=== PATIENT | female | born 1980 | race Caucasian/White ===

== ENCOUNTER → 2017-11-13 18:07 | Outpatient (CLI) | payer BC, SELFPAY ==
[2017-11-13 21:13] LABS: Chlamydia Trachomatis by PCR Negative (Negative); Neisserai gonorrhoeae by PCR Negative (Negative); Probe Check PASS; Sample Adequacy Control PASS; Specimen Processing Control PASS
[2017-11-20 20:07] LABS: HPV Genotype 16, Aptima Negative (Negative)
[2017-11-21 09:16] LABS: HPV APTIMA, High Risk Positive (Negative); HPV Genotype 18,45 Aptima Negative (Negative)
== END ==
PROVIDERS: Visit Provider Obstetrics & Gynecology
DX: O09.521 Supervision of elderly multigravida, first trimester (principal); Z12.4 Encounter for screening for malignant neoplasm of cervix
CPT/HCPCS: 87086; 87088; 87491; 87591; 88175; G0145

== ENCOUNTER → 2017-12-03 11:37 | Outpatient (CLI) | payer BC, SELFPAY ==
[2017-12-03 12:51] LABS: Absolute Lymphocyte Count 2.04 X10^3/ul (0.83-4.51); Absolute Neutrophil Count 3.3 X10^3/uL (2.0-7.7); Basophil# 0.02 X10^3/uL; Basophil% 0.3 % (0-1); Eosinophil# 0.09 X10^3/uL; Eosinophils% 1.5 % (0-5); Hematocrit 38.9 % (37-47); Hemoglobin 13.4 g/dl (12.0-15.0); Lymphocyte # 2.04 X10^3/ul (4.0); Lymphocyte % 34.4 % (19-41); Mean Corp Hgb Conc 34.4 g/gl (32-36); Mean Corpuscular Hgb 29.3 pg (27.0-32.0); Mean Corpuscular Volume 85.1 fL (81-99); Mean Platelet Vol. 9.1 fl (6.2-12.0); Monocyte# 0.48 X10^3/uL; Monocyte% 8.1 % (0-10); Neutrophil # 3.29 X10^3/uL (2.7-7.7); Neutrophil % 55.5 % (47-70); Platelet Count 198 K/mm3 (150-450); RBC Distribution Width CV 13.4 % (11.6-14.6); RBC Distribution Width SD 41.4 fl (35.1-43.9); Red Blood Count 4.57 M/mm3 (4.2-5.4); White Blood Count 5.9 K/mm3 (4.4-11.0)
[2017-12-03 12:55] LABS: POSITIVE COUNT NO; POSITIVE DIFFERENTIAL NO; POSITIVE MORPHOLOGY NO
[2017-12-03 13:56] LABS: HIV - WCH Non-Reactive (Nonreactive); Rubella IgG 202.1 IU/mL
[2017-12-04 11:12] LABS: HEPATITIS B SURFACE AG Negative (Negative)
[2017-12-05 05:06] LABS: Rapid Plasmin Reagin (RPR) NONREACTIVE (NONREACTIVE)
== END ==
LOC: POLAB3 11:38
PROVIDERS: Visit Provider Obstetrics & Gynecology
DX: O09.521 Supervision of elderly multigravida, first trimester (principal); Z3A.00 Weeks of gestation of pregnancy not specified
CPT/HCPCS: 85025; 86592; 86703; 86762; 86850; 86900; 87340

== ENCOUNTER → 2017-12-17 16:04 | Outpatient (CLI) | payer BC, SELFPAY | PROVIDERS: Visit Provider Obstetrics & Gynecology | DX: Z00.00 Encounter for general adult medical examination without abnormal findings (principal) | CPT/HCPCS: 36415 ==

== ENCOUNTER → 2018-02-06 12:12 | Outpatient (CLI) | payer BC, SELFPAY ==
--- NOTE | 2018-02-06 12:22 | US_ITS ---
STUDY: SECOND AND THIRD TRIMESTER OBSTETRICAL ULTRASOUND REASON FOR EXAM: Female, 37 years old. Routine survey. LMP: Unknown. TECHNIQUE: Transabdominal PRIOR ULTRASOUND: None. FINDINGS: There is a single intrauterine fetus. The fetus is in a breech presentation. There is demonstrated cardiac activity with a heart rate of 147 bpm. There is a normal amniotic fluid volume. The largest amniotic fluid pocket measures 4.6 cm. The amniotic fluid index (ALEX) is 3.3 cm. The placenta is anterior in location and is not low lying. There are Grade 0 placental changes. The cervix measures 4.1 cm in length. The adnexal regions are not visualized. BIOMETRY: BPD: 4.7 cm: 20 weeks, 1 days HC: 17.3 cm: 19 weeks, 6 days AC: 15.2 cm: 20 weeks, 3 days FL: 3.1 cm: 19 weeks, 6 days age by current US: 19 weeks, 1 days. MISBAH by current US: June 25, 2018. Estimated weight: 330 grams, +/- 48 grams, 33 %. ANATOMY: Cranium: Normal lateral ventricles. Normal choroid plexus. Normal cerebellum. Normal cisterna magna. Normal face, nose and lips. Chest: Normal 4-chamber heart. Abdomen/Pelvis: Normal diaphragm. Normal stomach. Normal abdominal wall. Normal cord insertion. Normal 3 vessel cord. Normal kidneys. Normal bladder. Spine: Normal cervical spine. Normal thoracic spine. Normal lumbar spine. Normal sacrum. Extremities: Normal bilateral upper extremities. Normal bilateral lower extremities. US/OB Anatomy Scan IMPRESSION: Single intrauterine gestation 19 weeks 1 day with estimated due date June 25, 2018. No anomalies on routine anatomic survey. Electronically Signed: Florentin Salomon MD at 15:48 EDT , Service support ,
== END ==
LOC: OPUS 12:13
PROVIDERS: Visit Provider Obstetrics & Gynecology
DX: O09.521 Supervision of elderly multigravida, first trimester (principal); Z3A.00 Weeks of gestation of pregnancy not specified
CPT/HCPCS: 76805

== ENCOUNTER → 2018-04-03 12:33 | Outpatient (CLI) | payer BC, SELFPAY ==
[2018-04-03 13:25] LABS: Absolute Neutrophil Count 7.8 X10^3/uL (2.0-7.7); Basophil# 0.02 X10^3/uL; Basophil% 0.2 % (0-1); Eosinophil# 0.13 X10^3/uL; Eosinophils% 1.2 % (0-5); Hematocrit 35.5 % (37-47); Hemoglobin 12.2 g/dl (12.0-15.0); Lymphocyte % 17.7 % (19-41); Mean Corp Hgb Conc 34.4 g/gl (32-36); Mean Corpuscular Volume 87.2 fL (81-99); Mean Platelet Vol. 9.3 fl (6.2-12.0); Monocyte# 0.79 X10^3/uL; Monocyte% 7.4 % (0-10); Neutrophil # 7.83 X10^3/uL (2.7-7.7); Neutrophil % 72.9 % (47-70); Platelet Count 210 K/mm3 (150-450); RBC Distribution Width CV 13.7 % (11.6-14.6); RBC Distribution Width SD 43.3 fl (35.1-43.9); Red Blood Count 4.07 M/mm3 (4.2-5.4); White Blood Count 10.7 K/mm3 (4.4-11.0)
[2018-04-03 13:27] LABS: Differential Indicated SCAN CRITERIA MET; POSITIVE COUNT NO; POSITIVE DIFFERENTIAL NO; POSITIVE MORPHOLOGY YES
[2018-04-03 13:39] LABS: Glucose Challenge Gest 1H 50g 120 mg/dL (70-140)
[2018-04-03 14:02] LABS: Differential Comment S
== END ==
PROVIDERS: Referring Provider Obstetrics & Gynecology; Visit Provider Obstetrics & Gynecology
DX: O09.521 Supervision of elderly multigravida, first trimester (principal)
CPT/HCPCS: 36415; 82950; 85025; 86850; 86900

== ENCOUNTER → 2018-05-01 13:56 | Outpatient (CLI) | payer BC, SELFPAY ==
--- NOTE | 2018-05-01 13:58 | US_ITS ---
STUDY: SECOND AND THIRD TRIMESTER OBSTETRICAL ULTRASOUND - LIMITED REASON FOR EXAM: Female, 37 years old. Examination of well-being LMP: PRIOR ULTRASOUND: None. TECHNIQUE: Transabdominal probe was used TECHNICAL QUALITY: February 06, 2018 FINDINGS: There is a single intrauterine fetus. The fetus is in a cephalic presentation. There is demonstrated cardiac activity with a heart rate of 125 bpm. There is a normal amniotic fluid volume. The largest amniotic fluid pocket measures 5.9 x 2.8 cm. The amniotic fluid index (ALEX) is 14 cm. The placenta is anterior and low-lying . There are Grade 0 placental changes. The cervix measures 4 cm in length. BIOMETRY: BPD: 8.2 cm: 33 weeks, 0 days HC: 30.2 cm: . 33 weeks, 4 days AC: 29.3 cm: 33 weeks, 3 days FL: 6.3 cm: 32 weeks, 5 days Age by LMP: 32 weeks, 2 days. MISBAH by LMP: 06/17/2018. age by prior US: 19 weeks, 1 days. MISBAH by prior US: 06/25/2018. age by current US: 53 weeks, 2 days. MISBAH by current US: 06/17/2018. Estimated weight: 2124 grams, +/- 310 grams, 67 percentile. US/OB Limited With Biometrics IMPRESSION: There has been a normal growth of the fetus since the last examination of March 05, 2018. The fetus is currently in a cephalic presentation and longitudinal lie with composite measurements averaging out to be equivalent to 33 weeks 2 days +/- 5 days with an expected date of delivery of 06/17/2018. Using the LMP the expected date would be 06/17/2018. Estimated weight of 212 4 g +/- 310 g. This is in the 67th percentile Electronically Signed: Eddie Graham MD at 7:42 EDT Tel , Service support ,
== END ==
LOC: US 13:57
PROVIDERS: Referring Provider Obstetrics & Gynecology; Visit Provider Obstetrics & Gynecology
DX: Z34.90 Encounter for supervision of normal pregnancy, unspecified, unspecified trimester (principal); Z68.43 Body mass index [BMI] 50.0-59.9, adult
CPT/HCPCS: 76816

== ENCOUNTER → 2018-05-14 09:58 | Outpatient (CLI) | payer BC, SELFPAY ==
--- NOTE | 2018-05-14 10:00 | VDLE_ITS ---
Reason For Study: LEG SWELLING RIGHT LEFT CFV is compressible, spontaneous, phasic, GSV is normal. competent and demonstrates normal CFV is compressible, spontaneous, phasic, augmentation. competent, and demonstrates normal Procedure augmentation. Exam performed in department. FV is compressible, spontaneous, phasic, A preliminary report was called and/or faxed competent and demonstrates normal to Dr. Das. augmentation. POP V is compressible, spontaneous, phasic, competent and demonstrates normal augmentation. T/P Trunk is compressible. PTV is compressible. LT PerV is compressible. <> Interpretation Summary There is no evidence of left lower extremity deep vein thrombosis. Left greater saphenous vein appears patent and compressible segmentally. Normal flow patterns right common femoral vein. Ordering Physician: Radha Das Referring Physician: Radha Das Performed By: Aidee Leung RVT
== END ==
LOC: CVS 09:59
PROVIDERS: Referring Provider Obstetrics & Gynecology; Visit Provider Obstetrics & Gynecology
DX: M79.89 Other specified soft tissue disorders (principal)
CPT/HCPCS: 93971

== ENCOUNTER → 2018-06-01 13:35 | Outpatient (CLI) | payer BC, SELFPAY ==
[2018-05-27 15:58] VITALS: BMI 50.0
== END ==
PROVIDERS: Referring Provider Nurse Practitioner Women's Health; Visit Provider Nurse Practitioner Women's Health
DX: Z34.90 Encounter for supervision of normal pregnancy, unspecified, unspecified trimester (principal)
CPT/HCPCS: 87081

== ENCOUNTER → 2018-06-08 13:15 | Outpatient (CLI) | payer BC, SELFPAY ==
[2018-06-05 10:03] VITALS: BMI 50.0
--- NOTE | 2018-06-08 13:19 | US_ITS ---
STUDY: SECOND AND THIRD TRIMESTER OBSTETRICAL ULTRASOUND - LIMITED REASON FOR EXAM: Female, 37 years old. Evaluate for growth LMP: Unknown. PRIOR ULTRASOUND: 05/01/2018 TECHNIQUE: Transabdominal TECHNICAL QUALITY: Adequate. FINDINGS: There is a single intrauterine fetus. The fetus is in a cephalic presentation. There is demonstrated cardiac activity with a heart rate of 153 bpm. There is a normal amniotic fluid volume. The largest amniotic fluid pocket measures 5.9 x 3.9 cm. The amniotic fluid index (ALEX) is 14.6 cm. The placenta is anterior in location and is not low lying. There are Grade 2 placental changes. The cervix measures 4.4 cm in length. BIOMETRY: BPD: 9.6 cm: 39 weeks, 0 days HC: 33.9 cm: 39 weeks, 0 days AC: 35.0 cm: 39 weeks, 0 days FL: 7.5 cm: 38 weeks, 3 days Age by LMP: 37 weeks, 5 days. MISBAH by LMP: 06/24/2019. age by prior US: 38 weeks, 5 days. MISBAH by prior US: 06/17/2018. age by current US: 38 weeks, 6 days. MISABH by current US: 06/16/2018. Estimated weight: 3595 grams, +/- 525 grams, 85 percentile. US/OB Limited With Biometrics IMPRESSION: Single viable intrauterine of approximately 38 weeks 6 days gestational age by current ultrasonographic measurement. The fetus is in cephalic presentation. A heart rate of 153 bpm is noted. The ALEX is within normal limits. Electronically Signed: Angel Gilbert MD at 22:57 EST , Service support ,
--- OUTSIDE RECORDS SUMMARY | 2018-08-01 21:18 | XMS RPT_ITS ---
:1980 Author Organization OHIP Support Name Relationship Address Phone [facility] Unavailable [address] + [place] [address] V[place], FOR[place] Unavailable [address] + [address] [facility] Unavailable [address] + [place] [address] [place], FORREST Unavailable [address] + [address] [facility] Unavailable [address] + [place] [address] [place], FORREST Unavailable [address] + [address] [facility] Unavailable [address] + [place] [id number] VILL[place], FORREST Unavailable [address] + [address] [facility] Unavailable [address] + [place] [address] VILL[place], FORREST Unavailable [address] + [address] [facility] Unavailable [address] + [place] [id number] VILL[place], FORREST Unavailable [address] + [address] [facility] Unavailable [address] + [place] [id number] VILL[place], FORREST Unavailable [address] + [address] [facility] Unavailable [address] + [place] [id number] VILL[place], FORREST Unavailable [address] + [address] [facility] Unavailable [address] + [facility], [facility] VILLAR, FORREST Unavailable [address] + [facility] [place], [address] [facility] Unavailable [address] + [facility] [place], [place] [address] VILL[place], FORREST Unavailable [address] + [facility], [address] [facility] Unavailable [address] + [place] [place], [place] [address] [place]ILL[place], FORREST Unavailable [address] + [facility], [address] [facility] Unavailable [address] + [facility] [place], [place] [address] V[place], FOR[place] Unavailable [address] + [facility], [address] [facility] Unavailable [address] + [place] [place], [place] [address] [place], FOR[place] Unavailable [address] + [facility], [address] [facility] Unavailable [address] + [place] [place], [place] [address] V[place], FOR[place] Unavailable [address] + [facility], [address] [facility] Unavailable [address] + [place], [place] [address] [place], FOR[place] Unavailable [address] + [facility], [address] [facility] Unavailable [address] + [place], [place] [address] [place], FORREST Unavailable [address] + [facility], [address] [facility] Unavailable [address] + [place], [place] [address] [place], FOR[place] Unavailable [address] + [place] [place] [place], [address] [facility] Unavailable [address] + [place], [place] [address] [place], FOR[place] Unavailable [address] + [place], [address] [facility] Unavailable [address] + [place], [facility] [place], FORREST Unavailable [address] + [facility], [address] [facility] Unavailable [address] + [place], [place] [address] [place], FOR[place] Unavailable [address] + [facility], [address] [facility] Unavailable [address] + [place], [place] [address] [place], FORREST Unavailable [address] + [facility], [address] [facility] Unavailable [address] + [place], [place] [address] [place], [place] Unavailable [address] + [facility] [place], [address] [facility] Unavailable [address] + [place], [place] [address] [place], [place] Unavailable [address] + [place], [address] [facility] Unavailable [address] + [place], [place] [address] [place], [place] Unavailable [address] + [place] [place] [place], [address] [facility] Unavailable [address] + [place], [place] [address] [place], [place] Unavailable [address] + [place], [address] [facility] Unavailable [address] + [place], [place] [address] [place], [place] Unavailable [address] + [facility] [place], [address] [facility] Unavailable [address] + [place], [place] [address] [place], [place] Unavailable [address] + [place], [address] [facility] Unavailable [address] + [place], [place] [address] [place], [place] Unavailable [address] + [place], [address] [facility] Unavailable [address] + [place] [id number] [place], FORREST Unavailable [address] + [address] [facility] Unavailable [address] + [place] [address] [place], FOR[place] Unavailable [address] + [address] [facility] Unavailable [address] + [place] [address] [place], [place] Unavailable [address] + [address] [facility] Unavailable [address] + [place] [address] [place], [place] Unavailable [address] + [address] [facility] Unavailable Unavailable + [address], [place] Unavailable [address] + [place] [address] Care Team Providers Name Role Phone Litzy Joyce Admitting Unavailable Litzy Joyce Attending Unavailable Guera Galvan Primary Care Unavailable Negroanthony, Radha Attending Unavailable Primay Care Physicia, No Referring Unavailable Marcanthony, Radha Admitting Unavailable Marcanthony, Radha Attending Unavailable Primay Care Physicia, No Primary Care Unavailable Marcanthony, Radha Referring Unavailable Marcanthony, Radha Admitting Unavailable Marcanthony, Radha Attending Unavailable Primay Care Physicia, No Primary Care Unavailable Marcanthony, Radha Consulting Unavailable Marcanthony, Radha Admitting Unavailable Marcanthony, Radha Attending Unavailable Marcanthony, Radha Referring Unavailable Primay Care Physicia, No Primary Care Unavailable Marcanthony, Radha Consulting Unavailable Marcanthony, Radha Admitting Unavailable DravosburgVeronica Attending Unavailable Marcanthony, Radha Referring Unavailable Primay Care Physicia, No Primary Care Unavailable Marcanthony, Radha Consulting Unavailable Marcanthony, Radha Admitting Unavailable Reddy, Veronica Attending Unavailable Marcanthony, Radha Referring Unavailable Primay Care Physicia, No Primary Care Unavailable Marcanthony, Radha Consulting Unavailable Marcanthony, Radha Attending Unavailable Primay Care Physicia, No Referring Unavailable Primay Care Physicia, No Primary Care Unavailable Marcanthony, Radha Attending Unavailable Marcanthony, Radha Referring Unavailable Reddy, Veronica Attending Unavailable Primay Care Physicia, No Referring Unavailable Primay Care Physicia, No Primary Care Unavailable Marcanthony, Radha Attending Unavailable [place], Veronica Attending Unavailable Primay Care Physicia, No Referring Unavailable Primay Care Physicia, No Primary Care Unavailable Marcanthony, Radha Attending Unavailable Marcanthony, Radha Referring Unavailable Primay Care Physicia, No Primary Care Unavailable Marcanthony, Radha Attending Unavailable Primay Care Physicia, No Referring Unavailable Marcanthony, Radha Attending Unavailable Primay Care Physicia, No Referring Unavailable Marcanthony, Radha Attending Unavailable Primay Care Physicia, No Referring Unavailable Primay Care Physicia, No Primary Care Unavailable Marcanthony, Radha Attending Unavailable Primay Care Physicia, No Primary Care Unavailable Marcanthony, Radha Referring Unavailable Marcanthony, Radha Attending Unavailable Primay Care Physicia, No Referring Unavailable Primay Care Physicia, No Primary Care Unavailable Marcanthony, Radha Attending Unavailable Primay Care Physicia, No Referring Unavailable Primay Care Physicia, No Primary Care Unavailable Marcanthony, Radha Attending Unavailable Primay Care Physicia, No Referring Unavailable Marcanthony, Radha Attending Unavailable Marcanthony, Radha Referring Unavailable Primay Care Physicia, No Primary Care Unavailable Marcanthony, Radha Attending Unavailable Primay Care Physicia, No Referring Unavailable Marcanthony, Radha Attending Unavailable Primay Care Physicia, No Referring Unavailable Marcanthony, Radha Attending Unavailable Primay Care Physicia, No Primary Care Unavailable Marcanthony, Radha Referring Unavailable [place], Veronica Attending Unavailable Primay Care Physicia, No Referring Unavailable Marcanthony, Radha Attending Unavailable Marcanthony, Radha Referring Unavailable Primay Care Physicia, No Primary Care Unavailable CebulSanket Attending Unavailable Marcanthony, Radha Referring Unavailable Primay Care Physicia, No Primary Care Unavailable Marcanthony, Radha Consulting Unavailable Reddy, Veronica Attending Unavailable Primay Care Physicia, No Referring Unavailable Reddy, Veronica Attending Unavailable Primay Care Physicia, No Referring Unavailable [place], Veronica Attending Unavailable Primay Care Physicia, No Referring Unavailable Reddy, Veronica Attending Unavailable Reddy, Veronica Referring Unavailable Primay Care Physicia, No Primary Care Unavailable Marcanthony, Radha Attending Unavailable Primay Care Physicia, No Referring Unavailable Marcanthony, Radha Attending Unavailable Marcanthony, Radha Referring Unavailable Primay Care Physicia, No Primary Care Unavailable Marcanthony, Radha Attending Unavailable Primay Care Physicia, No Referring Unavailable PROBLEMS PROBLEMS DATE TYPE CONDITION / CODE ATTENDING STATUS SOURCE 06/17/2018 Unknown O99.210 - Obesity Thiago, Active [employer] complicating [facility] , Hospital unspecified Repository trimester / O99.210(ICD-10) 06/12/2018 Unknown O09.521 - Marcanthony, Active [employer] Supervision of [facility] multigravida, Repository first trimester / O09.521(ICD-10) 06/12/2018 Unknown M06.09 - Marcanthony, Active [facility] Rheumatoid [facility] arthritis without Hospital rheumatoid factor, Repository multiple sites / M06.09(ICD-10) 06/12/2018 Unknown M79.7 - Marcanthony, Active [employer] Fibromyalgia / [facility] M79.7(ICD-10) Hospital Repository 06/12/2018 Unknown O09.893 - Marcanthony, Active [employer] Supervision of [facility] other high risk Hospital pregnancies, third Repository trimester / O09.893(ICD-10) 06/12/2018 Unknown Z68.43 - Body mass Marcanthony, Active [employer] index (BMI) [facility] 50-59.9, adult / Hospital Z68.43(ICD-10) Repository 06/12/2018 Unknown O09.523 - Marcanthony, Active [facility] Supervision of [facility] multigravida, Repository third trimester / O09.523(ICD-10) 06/12/2018 Unknown Z3A.38 - 38 weeks Marcanthony, Active [facility] gestation of [facility] / Hospital Z3A.38(ICD-10) Repository 06/08/2018 Unknown Z3A.37 - 37 weeks Marcanthony, Active [employer] gestation of [facility] / Hospital Z3A.37(ICD-10) Repository 06/01/2018 Unknown Z34.90 - Encounter Veronica Blakely Active [employer] for supervision of [facility] normal , Hospital unspecified, Repository unspecified trimester / Z34.90(ICD-10) 05/14/2018 Unknown M79.89 - Other Sanket Zuñiga Active [employer] specified soft Community tissue disorders / Hospital M79.89(ICD-10) Repository 05/07/2018 Unknown Z3A.33 - 33 weeks Reddy Veronica Active [employer] gestation of [facility] / Hospital Z3A.33(ICD-10) Repository 04/30/2018 Unknown Z3A.32 - 32 weeks Thiago, Active [facility] gestation of [facility] / Hospital Z3A.32(ICD-10) Repository 04/03/2018 Unknown Z67.91 - [facility] Active [employer] Unspecified blood [facility] type, Rh negative Hospital / Z67.91(ICD-10) Repository 04/03/2018 Unknown Z23 - Encounter Marcanthony, Active [employer] for immunization / [place] [address](ICD-10) Hospital Repository 04/03/2018 Unknown O09.899 - [facility] Active [employer] Supervision of [facility] other high risk Hospital pregnancies, Repository unspecified trimester / O09.899(ICD-10) 04/03/2018 Unknown Z3A.28 - [address] [facility], Active [employer] gestation of [facility] / Hospital Z3A.28(ICD-10) Repository 02/13/2018 Unknown O09.892 - Marcdayton, Active [employer] Supervision of [facility] high risk Hospital pregnancies, Repository second trimester / O09.892(ICD-10) 01/16/2018 Unknown Z3A.17 - [address] [facility], Active [place] gestation of [facility] / Hospital Z3A.17(ICD-10) Repository PROCEDURES PROCEDURES No Procedure Records FoundRESULTS RESULTS DISCHARGE INSTRUCTION Observed: 06/24/2018 Status: F Source: [place] 8:16 AM [facility] [place] [facility] Medical Records Department [address] [place] [address] Instructions for Home/Discharge Instructions 06/24/18 0815 MR#: [id number] Acct: [id number] Name: WAYNE VILLAR Rep #: [id number] : 1980 37 From: Veronica Blakely [employer] PCP: Care Physician, No Primary Status: ADM IN Additional Instructions: If you experience any of the following, contact your healthcare provider. * Bleeding that soaks a pad every hour for 2 hours * Fever 100.4 or higher * Unrelieved incision or abdominal pain * Swelling, redness, discharge or bleeding from your incision or episiotomy site * Your incision begins to separate * Problems urinating (including inability to urinate or burning while urinating). * Visual changes * Severe headache * Flu-like symptoms * Pain or redness in one of both of your breasts * Pain, warmth, tenderness or swelling in your legs, especially the calf area * Frequent nausea and vomiting * Symptoms of depression or anxiety If you experience any of the following, call 911 or go to the nearest Emergency Room. * Chest pain * Problems breathing * Seizure activity * Partial or complete paralysis of a body part, slurred speech, weakness or drooping of the face, or a sudden inability to walk or hold your balance Allergies/Adverse Reactions: Allergies No Known Allergies Allergy (Verified 06/21/18 21:47) Medications to take at Discharge vitamin,calcium,pcfnssrc-vyyq-bofhi acid tablet 1 tab PO QDAY 01/16/18 Ondansetron HCl [Zofran] 4 mg PO Q4H PRN 06/21/18 Primary Care Physician: Care Physician,No Primary [Primary Care Provider] - Test Results: Test results from this visit will be discussed in further detail at your follow-up appointment, if applicable. 06/24/18 0816 <Electronically signed by Veronica MARTINEZ> Date Veronica MARTINEZ CC: No Primary Care Physician OPERATIVE REPORT Observed: 06/22/2018 Status: F Source: [place] 11:31 AM [facility] [place] [facility] Medical Records Department [address] [place] [address] Operative Report 06/22/18 1129 MR#: [id number] Acct: [id number] Name: WAYNE VILLAR Rep #: [id number] : 1980 37 From: Radha Das MD PCP: Care Physician, No Primary Status: ADM IN Y Location: [id number] - Problem List (1) SROM (spontaneous rupture of membranes) Status: Acute (2) Obesity affecting Status: Acute Qualifiers: Comment: NST through delivery (3) Supervision of high risk elderly multigravida in third trimester Status: Acute Comment: PRR MISBAH 06/24/18 emaline girl Arben Menjivar Abner (4) Status: Acute Qualifiers: Comment: NIPT low risk. carrier and NTD screening declined. anatomy scan normal. (5) Cytology examination positive for high risk human papillomavirus (HPV) Status: Acute Comment: 11/2017 neg pap, positive HPV. Repeat 1 year (6) Rh negative status during Status: Acute Qualifiers: Comment: rhogam as needed and 28 weeks- given (7) Fibromyalgia Status: Chronic Comment: sees Dr Joyce (8) Rheumatoid arthritis Status: Chronic Qualifiers: Comment: see Dr Joyce Vaginal Delivery Maternal Presentation: Active Labor 37-year-old presents in active labor with rupture of membranes Amniotic Membrane Rupture Type: Spontaneous at home Amniotic Fluid Description: Clear Final MISBAH: 06/24/18 Gestational age: 39 Weeks and 5 Days Date of Procedure: 06/22/18 Pre-Operative Diagnosis: In active labor rupture of membranes Post-Operative Diagnosis: Same Surgery/ Procedure Performed: Spontaneous Vaginal Delivery Type of Anesthesia: Epidural Description of Procedure: Patient began pushing and delivered the head in the LB presentation. The head was delivered atraumatically . The anterior and posterior shoulders delivered without complication followed by the rest of the infant and the was placed on the maternal abdomen. Delayed cord clamping was employed for approximately 60 seconds. Cord was clamped and cut and gentle traction was applied to the cord and the placenta delivered spontaneously immediately following it was noted to be intact with three-vessel cord. The perineum and vagina were inspected and noted to have no laceration. EBL was 200 cc. Patient and infant tolerated delivery well. Presentation: LB Placental Delivery Description: Spontaneous Placenta Disposition: [facility] Cord Vessel Description: 3 Vessels Cord Entanglement: None Estimated Blood Loss: 200 A gender: Female Episiotomy Description: None Laceration: None Medications given after delivery: IV Pitocin Complications: None 06/22/18 1131 <Electronically signed by Radha Das MD> Date Radha Das MD CC: No Primary Care Physician; Radha Das MD Signed HISTORY AND PHYSICAL Observed: 06/21/2018 Status: F Source: [place] EXAM 9:49 PM [facility] [place] [facility] Medical Records Department [address] [place] [address] History and Physical 06/21/185 MR#: [id number] Acct: [id number] Name: WAYNE VILLAR Rep #: [id number] : 1980 37 From: Radha Das MD PCP: Care Physician, No Primary Status: ADM IN Y Location: [id number] - Problem List (1) SROM (spontaneous rupture of membranes) Status: Acute (2) Obesity affecting Status: Acute Qualifiers: Comment: NST through delivery (3) Supervision of high risk elderly multigravida in third trimester Status: Acute Comment: PRR MISBAH 06/24/18 emaline girl PC Arben Crawford Abner (4) Status: Acute Qualifiers: Comment: NIPT low risk. carrier and NTD screening declined. anatomy scan normal. (5) Cytology examination positive for high risk human papillomavirus (HPV) Status: Acute Comment: 11/2017 neg pap, positive HPV. Repeat 1 year (6) Rh negative status during Status: Acute Qualifiers: Comment: rhogam as needed and 28 weeks- given (7) Fibromyalgia Status: Chronic Comment: sees Dr Joyce (8) Rheumatoid arthritis Status: Chronic Qualifiers: Comment: see Dr Joyce History Date of Admission: 06/21/18 Final MISBAH: 06/24/18 Gestational age: 39 Weeks and 4 Days History of this : This is a 37 year-old, at 39w4d weeks gestational age presents with SROM clear fluid. she has had a complicated by obesity and AMA. She has a history of 2 previous uncomplicated vaginal deliveries. She denies any vb and admits good fm but has only a few contractions Medical History: Medical History (Last Reviewed 06/17/18 @ 08:46 by Jossy Nichols) Fibromyalgia M79.7 Rheumatoid arthritis M06.9 Surgical History: Surgical History (Last Reviewed 06/17/18 @ 08:46 by Jossy Nichols) H/O hernia repair Z98.890, Z87.19 Hx of cholecystectomy Z90.49 ankle surgery Allergies No Known Allergies Allergy (Verified 06/17/18 08:46) Home Medications: Home Medications hydroxychloroquine 200 mg tablet 200 mg PO QDAY 11/13/17 vitamin,calcium,yphwitfd-tucw-yqajd acid tablet 1 tab PO QDAY 01/16/18 promethazine 12.5 mg tablet 12.5 mg PO Q6H PRN #30 tab 02/16/18 ranitidine 150 mg tablet 150 mg PO BID #60 tab 04/03/18 Flucelvax Quad [id number] (PF) 60 mcg (15 mcg x 4)/0.5 mL IM syringe 0.5 ml IM ONCE #1 ml NS 04/17/18 ondansetron HCl 4 mg tablet 4 mg PO Q4H #60 tab 04/30/18 Smoking Status: Never smoker Alcohol: None Number of Fetus(es): 1 Heart Tracin moderate variability reactive no decels cat I tracing TOCO Analysis: q 5-8 History Past Pregnancies: Pregancy History 4 Elective abortions Hx Para 2 Spontaneous abortions Past Pregnancies Del. DatName GA/WeeksOutcome Route [facility] LocaProviderFOB e ht en ia tn Unknown 2003 [place] birNSVD [id number] epidural [facility] por[facility] d Womens l term Care Labs: Social History Smoking Status Never smoker Expected Infant Delivery Method: Spontaneous Vaginal Describe any other labor AND delivery plans:: OB Visit. MISBAH Calculator. Estimated Delivery Date 06/24/18. Based on LMP (certain) 09/17/17. Current WG 39w 1d. Number 1. Expected Delivery Route/Plan. . Specific Issue/Plans. flu vaccine: given. tdap vaccine: given. rhogam given. LARC form signed: declined. labor support person: Derek. pain management: []. cut cord/dad catch: []. : []. PP control planned: []. special requests: [] Review of Systems Constitutional: Denies: Fever, Malaise Eyes: Denies: Blurred vision, Vision Change HEENT: Denies: Head Aches, Visual Changes Cardiovascular: Denies: Chest Pain, Palpitations Respiratory: Denies: Cough, Shortness of Breath, Wheezing Gastrointestinal: Denies: Abdominal Pain, Diarrhea, Nausea, Vomiting Genitourinary: Denies: Dysuria, Hematuria Gynecological: Reports: Vaginal discharge Musculoskeletal: Reports: Joint Pain. Denies: Muscle pain Skin: Denies: Lesions, Rash Neurological: Denies: Blurred vision, Focal weakness, Headaches Psychiatric: Denies: Anxiety, Depression Endocrine: Denies: Heat/ Cold Intolerance Hematologic/ Lymphatic: Denies: Easy Bruising, Easy Bleeding Physical Exam General: Alert, Cooperative, No apparent distress HEENT: Atraumatic, Normocephalic. Negative for: Thyromegaly, Lymphadenopathy Cardiovascular: Regular rate Lungs: Normal air movement Abdomen: Soft, Non Tender, Gravid Neurological: Deep Tendon Reflexes 2+/4 and Symmetrical, Neuro grossly intact. Negative for: Clonus CURRICULUM COUNSELOR: Normal external genitalia. Negative for: Vulvar lesions Estimated gestational size: Appropriate for gestational size Presentation: Cephalic Cervix Dilation (cm): 3 Station: -2 Effacement (%): 80 Assessment/Plan All Active Problems (Last Reviewed 06/17/18 @ 08:46 by Jossy Nichols) SROM (spontaneous rupture of membranes) (Acute) Obesity affecting (Acute) Supervision of high risk elderly multigravida in third trimester (Acute) (Acute) Cytology examination positive for high risk human papillomavirus (HPV) (Acute) Rh negative status during (Acute) BMI 50.0-59.9, adult (Resolved) This is a 37 year-old, at 21t6ghwhqx gestational age presents with SROM Patient presents IAL, plan expectant management for , pitocin PRN if needed. Pain management: plans epidural. GBS negtive. Management of any complications: AMA I have reviewed the [facility] and made any clinically relevant updates. 06/21/182148 <Electronically signed by Radha Das MD> Date Radha Das MD Cosigner Signature: Date (if applicable) CC: No Primary Care Physician; Radha Das MD Signed CBC-COMPLETE BLOOD CNT Collected: 06/21/2018 Status: F Source: AN[place] NO DIFF 9:36 PM [facility] [place] TYPE CODE TESTS RESULT OUT OF RANGE REFERENCE UNITS LAB L100.1000 4.4-11.0 K/mm3 Normal WBC 9.7 LAB L100.1200 4.2-5.4 M/mm3 Low RBC 3.86 LAB L100.1300 12.0-15.0 g/dl Low HGB 11.3 LAB L100.1400 37-47 % Low HCT 33.0 LAB L100.1500 81-99 fL Normal MCV 85.5 LAB L100.1600 27.0-32.0 pg Normal MCH 29.3 LAB L100.1700 32-36 g/gl Normal MCHC 34.2 LAB L100.1810 11.6-14.6 % Normal RDW CV 13.8 LAB L100.1820 35.1-43.9 fl Normal RDW SD 42.6 LAB L100.1900 150-450 K/mm3 Normal PLT 195 LAB L100.2000 6.2-12.0 fl Normal MPV 9.4 Performed By: #### L100.0500 #### [facility] [address] [place], [place], [address] TYPE AND SCREEN Collected: 06/21/2018 Status: F Source: [place] 9:36 PM [facility] [place] Order Comment: Reason for Type AND Screen/Red Cells: ROUTINE TYPE CODE TESTS RESULT OUT OF RANGE REFERENCE UNITS LAB B10.0800 A Normal BLOOD TYPE GEL NEGATIVE LAB B100.4000 Normal Antibody NEGATIVE Screen Performed By: #### B101.7450 #### [facility] [address] [place], [place], [address] SODA CLERK OFFICE VISIT Observed: 06/18/2018 Status: F Source: [place] REPORT 4:18 PM [facility] [place] [facility] [address] [place], [place] [address] OFFICE VISIT Date of Service: 06/17/18 MR#: [id number] Acct: [id number] Name: WAYNE VILLAR Rep #: [id number] : 1980 Provider: Radha Das MD Age/Sex: 37/F [facility] [facility] Status: Signed Intake Vital Signs06/17/18 Body Mass Index (BMI) 50.0 06/17/18 Height 5 ft 3 in 06/17/18 Weight: 281 lb 2 oz 06/17/18 Body Mass Index (BMI) 49.8 06/17/18 Blood Pressure 122/80 H Intake Visit Reasons: OB/NST - OK PER SM Is patient in pain?: No Allergies No Known Allergies Allergy (Verified 06/17/18 08:46) Medications hydroxychloroquine 200 mg tablet 200 mg PO QDAY 11/13/17 [History Confirmed 06/17/18] vitamin,calcium,youemalr-zagi-ymtvh acid tablet 1 tab PO QDAY 01/16/18 [History Confirmed 06/17/18] promethazine 12.5 mg tablet 12.5 mg PO Q6H PRN #30 tab 02/16/18 [Rx Confirmed 06/17/18] ranitidine 150 mg tablet 150 mg PO BID #60 tab 04/03/18 [Rx Confirmed 06/17/18] ondansetron HCl 4 mg tablet 4 mg PO Q4H #60 tab 04/30/18 [Rx Confirmed 06/17/18] Last Menstral Period: 09/17/17 Zika: Zika virus screening: Negative : No PFSH PFSH Medical History Fibromyalgia (Acute) Rheumatoid arthritis (Acute) Surgical History H/O hernia repair (Acute) Hx of cholecystectomy (Acute) ankle surgery (Acute) Family History Father Hypertension Grandmother Hypoglycemia Social History Smoking Status: Never smoker alcohol intake: never substance use type: does not use caffeine: Yes what type of physical activity do you participate in: walking seatbelt use: always do you feel safe at home: Yes 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 Pregancy History 4 Elective abortions Hx Para 2 Spontaneous abortions Past Pregnancies Del. DatName GA/WeeksOutcome Route Bth WeigInfant GLabor LgAnesthesDel LocaProviderFOB e ht en ia tn Unknown 2003 Mary live birNSVD [id number] epidural Mansfiel an th - ful porfirio d Womens l term Care HPI OB/NST - OK PER SM: Details: WAYNE VILLAR is a 37 year old who presents for routine OB visit. OB Visit MISBAH Calculator Estimated Delivery Date 06/24/18 Based on LMP (certain) 09/17/17 Current WG 39w 1d Number 1 Expected Delivery Route/Plan Specific Issue/Plans flu vaccine: given tdap vaccine: given rhogam given LARC form signed: declined labor support person: Derek pain management: [] cut cord/dad catch: [] : [] PP control planned: [] special requests: [] Initial Weight: 273 lb Date Weight BP Urine PrFHR FuHt Pres MoCTX DilationFetal StVisit NoProviderComments E ot v te GA G Effac lucose ed Visit Notes Visit Date: 06/17/18 no v blof good fm n oregular ctx Radha Das MD on 06/17/18 Visit Date: 06/12/18 no vb lof good fm n oregular ctx Radha Das MD on 06/12/18 Visit Date: 06/05/18 no vb lof good fm no regular ctx. ordered growth scan Radha Das MD on 06/05/18 Visit Date: 05/27/18 Doing well. NO VB, LOF. NST today JUAN Smalls on 05/27/18 Visit Date: 05/22/18 Doing well. No VB, LOF JUAN Smalls on 05/22/18 Visit Date: 05/15/18 Doing well. No VB, LOF. JOSUET today JUAN Smalls on 05/15/18 Visit Date: 05/07/18 Doing well. No VB,LOF. JOSUET today. JUAN Smalls on 05/07/18 Visit Date: 04/30/18 no vb lof good fm no regular ctx needs weekly nsts from here on out Radha Das MD on 04/30/18 Visit Date: 04/17/18 no vb lof good fm no regular ctx. Radha Das MD on 04/17/18 Visit Date: 04/03/18 no vb lof good fm no regular ctx cbc gct rhogam tdap today Radha Das MD on 04/03/18 Visit Date: 03/13/18 no vb cramping having grant horses in her legs Radha Das MD on 03/13/18 Visit Date: 02/13/18 no vb lof good fm no regular ctx Radha Das MD on 02/13/18 Visit Date: 01/16/18 no vb cramping Radha Das MD on 01/16/18 Visit Date: 12/17/17 Some N AND V last 2 days. Thinks GI virus. Better today. No VB, LOF. Wants NIPT JUAN Smalls on 12/17/17 Visit Date: 12/03/17 Work in for brown vaginal spotting X 2 days. Had SAB 4 year ago. Anxious. Confirmed recent intercourse prior to spotting. JUAN Smalls on 12/03/17 ACOG First Trimester First Trimester: Desire for , Alcohol, Tobacco Cessation, Illicit/Recreational Drug/Substance Use, Intimate Partner Violence, Barriers to care, Unstable Housing, Communication Barriers, Environmental/Work Hazards, Anticipated Course of Care, Toxoplasmosis Precations, Use of Any medications, Sexual activity, Exercise, Dental Care, Sauna/Hot tub use, Seat Belt use, Childbirth classes/Hospital facilities, , Travel, Indications for US and Screening for Aneuploidy Diagnostics Diagnostics Labs Blood Type A NEGATIVE 04/03/18 Antibody Screen NEGATIVE 04/03/18 Hct 35.5 % (37-47) L 04/03/18 Hgb 12.2 g/dl (12.0-15.0) 04/03/18 Obstetrics Ultrasound 06/08/18 Glucose 1 Hr 50 gm 120 mg/dL (70-140) 04/03/18 Details: HIV: Urine Culture: Sequential Screen: NIPT Screen: Office Procedures OB NST Non-Stress Test Indications for Monitoring: Yes BMI >40 Heart Rate Baseline: 150 Heart Rate Variability: moderate Movement: Present Heart Rate Accelerations: Present Decelerations: Absent Contractions: Absent Impression: Yes Reactive Non-Stress Test Category 1 Assessment AND Plan Problems 1. Supervision of high risk elderly multigravida in first trimester O09.521 2. Cytology examination positive for high risk human papillomavirus (HPV) 11/2017 neg pap, positive HPV. Repeat 1 year 3. Rh negative status during in third trimester O09.893 rhogam as needed and 28 weeks- given 4. 39 weeks gestation of Z3A.39 NIPT low risk. carrier and NTD screening declined. anatomy scan normal. 5. Fibromyalgia M79.[address] Joyce 6. Supervision of high risk elderly multigravida in third trimester O09.523 PRR MISBAH 06/24/18 emaline girl PC Arben Crawford Abner 7. Rheumatoid arthritis of multiple sites with negative rheumatoid factor M06.[address] Joyce 8. Obesity affecting in third trimester O99.213 NST through delivery Plan - Radha Das MD movement and labor precautions reviewed. ACOG trimester education reviewed and updated. see problem list details for updated plan management information and see below for orders placed at this visit. [place] appropriate handout given. Orders Orders: Coding Level of Care Code OB Routine Diagnoses Supervision of high risk elderly multigravida in first trimester O09.521 Cytology examination positive for high risk human papillomavirus (HPV) Rh negative status during in third trimester O09.893 Trimester: third trimester 39 weeks gestation of Z3A.39 Weeks of gestation: 39 weeks Fibromyalgia M79.7 Supervision of high risk elderly multigravida in third trimester O09.523 Rheumatoid arthritis of multiple sites with negative rheumatoid factor M06.09 Rheumatoid arthritis location: multiple sites Rheumatoid factor presence: without rheumatoid factor Obesity affecting in third trimester O99.213 Trimester: third trimester Additional Codes Non-Stress Test (12101) 06/17/18 2305 <Electronically signed by Radha Das MD> Date Radha Das MD 06/18/18 1618<Electronically signed by Veronica MARTINEZ> Cosigner Signature: Date (if applicable) Veronica Blakely CC: SODA CLERK OFFICE VISIT Observed: 06/12/2018 Status: F Source: [facility] 10:11 AM [facility] [address] [place] [address] OFFICE VISIT Date of Service: 06/12/18 MR#: [id number] Acct: [id number] Name: WAYNE VILLAR Rep #: [id number] : 1980 Provider: Radha Das MD Age/Sex: 37/F [place] [facility] [place]: Signed Intake Vital Signs06/12/18 Body Mass Index (BMI) 50.0 06/12/18 Height 5 ft 3 in 06/12/18 Weight: 286 lb 06/12/18 Body Mass Index (BMI) 50.6 06/12/18 Blood Pressure 122/74 H Intake Visit Reasons: 38 week ob Emergency Operator Required: No Is patient in pain?: No Allergies No Known Allergies Allergy (Verified 06/12/18 09:32) Medications hydroxychloroquine 200 mg tablet 200 mg PO QDAY 11/13/17 [History Confirmed 06/12/18] vitamin,calcium,ocowvhir-mkxl-jgjgr acid tablet 1 tab PO QDAY 01/16/18 [History Confirmed 06/12/18] promethazine 12.5 mg tablet 12.5 mg PO Q6H PRN #30 tab 02/16/18 [Rx Confirmed 06/12/18] ranitidine 150 mg tablet 150 mg PO BID #60 tab 04/03/18 [Rx Confirmed 06/12/18] ondansetron HCl 4 mg tablet 4 mg PO Q4H #60 tab 04/30/18 [Rx Confirmed 06/12/18] Last Menstral Period: 09/17/17 Zika: Zika virus screening: Negative : No PFSH PFSH Medical History Fibromyalgia (Acute) Rheumatoid arthritis (Acute) Surgical History H/O hernia repair (Acute) Hx of cholecystectomy (Acute) ankle surgery (Acute) Family History Father Hypertension Grandmother Hypoglycemia Social History Smoking Status: Never smoker alcohol intake: never substance use type: does not use caffeine: Yes what type of physical activity do you participate in: walking seatbelt use: always do you feel safe at home: Yes 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 DatName GA/WeeksOutcome Route [facility] WeigIncharlyt Parviz LgAnesthesDel LocaProviderFOB e ht en ia tn Unknown 2003 Mary live birNSVD [id number] epidural Mansfiel an th - ful porfirio d Womens l term Care HPI 38 week ob: Details: WAYNE VILLAR is a 37 year old who presents for routine OB visit. OB Visit MISBAH Calculator Estimated Delivery Date 06/24/18 Based on LMP (certain) 09/17/17 Current WG 38w 2d Number 1 Expected Delivery Route/Plan Specific Issue/Plans flu vaccine: given tdap vaccine: given rhogam given LARC form signed: declined labor support person: Derek pain management: [] cut cord/dad catch: [] : [] PP control planned: [] special requests: [] Initial Weight: 273 lb Date Weight BP Urine PrFHR FuHt Pres MoCTX DilationFetal StVisit NoProviderComments E ot v te GA G Effac lucose ed Visit Notes Visit Date: 06/12/18 no vb lof good fm n oregular ctx Radha Das MD on 06/12/18 Visit Date: 06/05/18 no vb lof good fm no regular ctx. ordered growth scan Radha Das MD on 06/05/18 Visit Date: 05/27/18 Doing well. NO VB, LOF. NST today JUAN Smalls on 05/27/18 Visit Date: 05/22/18 Doing well. No VB, LOF JUAN Smalls on 05/22/18 Visit Date: 05/15/18 Doing well. No VB, LOF. NST today JUAN Smalls on 05/15/18 Visit Date: 05/07/18 Doing well. No VB,LOF. NST today. JUAN Smalls on 05/07/18 Visit Date: 04/30/18 no vb lof good fm no regular ctx needs weekly nsts from here on out Radha Das MD on 04/30/18 Visit Date: 04/17/18 no vb lof good fm no regular ctx. Radha Das MD on 04/17/18 Visit Date: 04/03/18 no vb lof good fm no regular ctx cbc gct rhogam tdap today Radha Das MD on 04/03/18 Visit Date: 03/13/18 no vb cramping having grant horses in her legs Radha Das MD on 03/13/18 Visit Date: 02/13/18 no vb lof good fm no regular ctx Radha Das MD on 02/13/18 Visit Date: 01/16/18 no vb cramping Radha Dsa MD on 01/16/18 Visit Date: 12/17/17 Some N AND V last 2 days. Thinks GI virus. Better today. No VB, LOF. Wants NIPT JUAN Smalls on 12/17/17 Visit Date: 12/03/17 Work in for brown vaginal spotting X 2 days. Had SAB 4 year ago. Anxious. Confirmed recent intercourse prior to spotting. JUAN Smalls on 12/03/17 ACOG First Trimester First Trimester: Desire for , Alcohol, Tobacco Cessation, Illicit/Recreational Drug/Substance Use, Intimate Partner Violence, Barriers to care, Unstable Housing, Communication Barriers, Environmental/Work Hazards, Anticipated Course of Care, Toxoplasmosis Precations, Use of Any medications, Sexual activity, Exercise, Dental Care, Sauna/Hot tub use, Seat Belt use, Childbirth classes/Hospital facilities, , Travel, Indications for US and Screening for Aneuploidy Diagnostics Diagnostics Labs Blood Type A NEGATIVE 04/03/18 Antibody Screen NEGATIVE 04/03/18 Hct 35.5 % (37-47) L 04/03/18 Hgb 12.2 g/dl (12.0-15.0) 04/03/18 Obstetrics Ultrasound 06/08/18 Glucose 1 Hr 50 gm 120 mg/dL (70-140) 04/03/18 Details: HIV: Urine Culture: Sequential Screen: NIPT Screen: Office Procedures OB NST Non-Stress Test Indications for Monitoring: Yes BMI >40 Heart Rate Baseline: 140 Heart Rate Variability: moderate Movement: Present Heart Rate Accelerations: Present Decelerations: Absent Contractions: Absent Impression: Yes Reactive Non-Stress Test Category 1 Assessment AND Plan Problems 1. Cytology examination positive for high risk human papillomavirus (HPV) 11/2017 neg pap, positive HPV. Repeat 1 year 2. Rh negative status during in third trimester O09.893 rhogam as needed and 28 weeks- given 3. 38 weeks gestation of Z3A.38 NIPT low risk. carrier and NTD screening declined. anatomy scan normal. 4. Fibromyalgia M79.[address] Joyce 5. Supervision of high risk elderly multigravida in third trimester O09.3 PRR MISBAH 06/24/18 emaline girl PC Arben Crawford Abner 6. Rheumatoid arthritis of multiple sites with negative rheumatoid factor M06.[address] Joyce 7. BMI 50.0-59.9, adult Z68.43 8. Supervision of high risk elderly multigravida in first trimester O. Plan movement and labor precautions reviewed. ACOG trimester education reviewed and updated. see problem list details for updated plan management information and see below for orders placed at this visit. [place] appropriate handout given. Orders Orders: Coding Level of Care Code OB Routine Diagnoses Cytology examination positive for high risk human papillomavirus (HPV) Rh negative status during in third trimester O09.89 Trimester: third trimester 38 weeks gestation of Z3A.38 Weeks of gestation: 38 weeks Fibromyalgia M79.7 Supervision of high risk elderly multigravida in third trimester O09.3 Rheumatoid arthritis of multiple sites with negative rheumatoid factor M06.09 Rheumatoid arthritis location: multiple sites Rheumatoid factor presence: without rheumatoid factor BMI 50.0-59.9, adult Z68.43 Supervision of high risk elderly multigravida in first trimester O09.52 Additional Codes Non-Stress Test (52003) 06/12/18 1011 <Electronically signed by Radha Das MD> Date Radha Das MD Cosigner Signature: Date (if applicable) CC: OB LIMITED WITH Observed: 06/08/2018 Status: F Source: [facility] 1:19 PM [facility] [address] [place] [address] OB Limited With Biometrics MR#: [id number] Acct: [id number] Name: WAYNE VILLAR Rep #: [id number] : 1980 F 37 From: Angel Gilbert MD PCP: Care Physician, No Primary Status: REG CLI Study: OB Limited With Biometrics Date of Exam: 06/08/18 Exam# [id number] Ordering Dr: Radha Das MD STUDY: SECOND AND THIRD TRIMESTER OBSTETRICAL ULTRASOUND - LIMITED REASON FOR EXAM: Female, 37 years old. Evaluate for growth LMP: Unknown. PRIOR ULTRASOUND: 05/01/2018 TECHNIQUE: Transabdominal TECHNICAL QUALITY: Adequate. FINDINGS: There is a single intrauterine fetus. The fetus is in a cephalic presentation. There is demonstrated cardiac activity with a heart rate of 153 bpm. There is a normal amniotic fluid volume. The largest amniotic fluid pocket measures 5.9 x 3.9 cm. The amniotic fluid index (ALEX) is 14.6 cm. The placenta is anterior in location and is not low lying. There are Grade 2 placental changes. The cervix measures 4.4 cm in length. BIOMETRY: BPD: 9.6 cm: 39 weeks, 0 days HC: 33.9 cm: 39 weeks, 0 days AC: 35.0 cm: 39 weeks, 0 days FL: 7.5 cm: 38 weeks, 3 days Age by LMP: 37 weeks, 5 days. MISBAH by LMP: 06/24/2019. age by prior US: 38 weeks, 5 days. MISBAH by prior US: 06/17/2018. age by current US: 38 weeks, 6 days. MISBAH by current US: 06/16/2018. Estimated weight: 3595 grams, +/- 525 grams, 85 percentile. US/OB Limited With Biometrics IMPRESSION: Single viable intrauterine of approximately 38 weeks 6 days gestational age by current ultrasonographic measurement. The fetus is in cephalic presentation. A heart rate of 153 bpm is noted. The ALEX is within normal limits. Electronically Signed: Angel Gilbert MD at 22:57 EST , Service support , CC: No Primary Care Physician; Radha Das MD Restaurant Associate: Signed SODA CLERK OFFICE VISIT Observed: 06/05/2018 Status: F Source: [facility] REPORT 2:21 PM [facility] [address] [place] [address] OFFICE VISIT Date of Service: 06/05/18 MR#: [id number] Acct: [id number] Name: WAYNE VILLAR Rep #: [id number] : 1980 Provider: Radha Das MD Age/Sex: 37/F [place] [facility] [place]: Signed with Addenda ADDENDUM by Radha Das MD on 06/05/18 at 4933 OFFICE PROCEDURES Office Procedure Documentation entered by Radha Das MD 06/05/18 14:21: OB NST Non-Stress Test Indications for Monitoring: Yes diabetes Heart Rate Baseline: 135 Heart Rate Variability: moderate Movement: Present Heart Rate Accelerations: Present Decelerations: Absent Contractions: Absent Impression: Yes Reactive Non-Stress Test Category 1 06/05/18 1421 <Electronically signed by Radha Das MD> Date Radha Das MD cc: * Signed Intake Vital Signs06/05/18 Height 5 ft 3 in 06/05/18 Weight: 282 lb 06/05/18 Body Mass Index (BMI) 49.9 06/05/18 Blood Pressure 118/74 Intake Visit Reasons: 37 week ob Chief Complaint: est ob Emergency Operator Required: No Is patient in pain?: Yes Allergies No Known Allergies Allergy (Verified 05/27/18 15:37) Medications hydroxychloroquine 200 mg tablet 200 mg PO QDAY 11/13/17 [History Confirmed 05/27/18] vitamin,calcium,lukvjdqz-cmbz-qujic acid tablet 1 tab PO QDAY 01/16/18 [History Confirmed 05/27/18] promethazine 12.5 mg tablet 12.5 mg PO Q6H PRN #30 tab 02/16/18 [Rx Confirmed 05/27/18] ranitidine 150 mg tablet 150 mg PO BID #60 tab 04/03/18 [Rx Confirmed 05/27/18] ondansetron HCl 4 mg tablet 4 mg PO Q4H #60 tab 04/30/18 [Rx Confirmed 05/27/18] Last Menstral Period: 09/17/17 Zika: Zika virus screening: Negative : No PFSH PFSH Medical History Fibromyalgia (Acute) Rheumatoid arthritis (Acute) Surgical History H/O hernia repair (Acute) Hx of cholecystectomy (Acute) ankle surgery (Acute) Family History Father Hypertension Grandmother Hypoglycemia Social History Smoking Status: Never smoker alcohol intake: never substance use type: does not use caffeine: Yes what type of physical activity do you participate in: walking seatbelt use: always do you feel safe at home: Yes 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 DatName GA/WeeksOutcome Route Bth WeigInfant GLabor LgAnesthesDel LocaProviderFOB e ht en th ia tn Unknown 2003 Mary live birNSVD [id number] epidural Mansfiel an th - ful porfirio d Womens l term Care HPI 37 week ob: Details: WAYNE VILLAR is a 37 year old who presents for routine OB visit. OB Visit MISBAH Calculator Estimated Delivery Date 06/24/18 Based on LMP (certain) 09/17/17 Current WG 37w 2d Number 1 Expected Delivery Route/Plan Specific Issue/Plans flu vaccine: given tdap vaccine: given rhogam given LARC form signed: declined labor support person: Derek pain management: [] cut cord/dad catch: [] : [] PP control planned: [] special requests: [] Initial Weight: 273 lb Date Weight BP Urine PrFHR FuHt Pres MoCTX DilationFetal StVisit NoProviderComments E ot v te GA G Effac lucose ed Visit Notes Visit Date: 06/05/18 no vb lof good fm no regular ctx. ordered growth scan Radha Das MD on 06/05/18 Visit Date: 05/27/18 Doing well. NO VB, LOF. NST today JUAN Smalls on 05/27/18 Visit Date: 05/22/18 Doing well. No VB, LOF JUAN Smalls on 05/22/18 Visit Date: 05/15/18 Doing well. No VB, LOF. NST today JUAN Smalls on 05/15/18 Visit Date: 05/07/18 Doing well. No VB,LOF. NST today. JUAN Smalls on 05/07/18 Visit Date: 04/30/18 no vb lof good fm no regular ctx needs weekly nsts from here on out Radha Das MD on 04/30/18 Visit Date: 04/17/18 no vb lof good fm no regular ctx. Radha Das MD on 04/17/18 Visit Date: 04/03/18 no vb lof good fm no regular ctx cbc gct rhogam tdap today Radha Das MD on 04/03/18 Visit Date: 03/13/18 no vb cramping having grant horses in her legs Radha Das MD on 03/13/18 Visit Date: 02/13/18 no vb lof good fm no regular ctx Radha Das MD on 02/13/18 Visit Date: 01/16/18 no vb cramping Radha Das MD on 01/16/18 Visit Date: 12/17/17 Some N AND V last 2 days. Thinks GI virus. Better today. No VB, LOF. Wants NIPT JUAN Smalls on 12/17/17 Visit Date: 12/03/17 Work in for brown vaginal spotting X 2 days. Had SAB 4 year ago. Anxious. Confirmed recent intercourse prior to spotting. JUAN Smalls on 12/03/17 ACOG First Trimester First Trimester: Desire for , Alcohol, Tobacco Cessation, Illicit/Recreational Drug/Substance Use, Intimate Partner Violence, Barriers to care, Unstable Housing, Communication Barriers, Environmental/Work Hazards, Anticipated Course of Care, Toxoplasmosis Precations, Use of Any medications, Sexual activity, Exercise, Dental Care, Sauna/Hot tub use, Seat Belt use, Childbirth classes/Hospital facilities, , Travel, Indications for US and Screening for Aneuploidy Diagnostics Diagnostics Labs Blood Type A NEGATIVE 04/03/18 Antibody Screen NEGATIVE 04/03/18 Hct 35.5 % (37-47) L 04/03/18 Hgb 12.2 g/dl (12.0-15.0) 04/03/18 Obstetrics Ultrasound 05/01/18 Glucose 1 Hr 50 gm 120 mg/dL (70-140) 04/03/18 Details: HIV: Urine Culture: Sequential Screen: NIPT Screen: Results [id number] Office Urine Glucose Negative Last Edit by Julee Santos on 06/05/18 09:04 Office Urine Protein Negative Last Edit by Julee Santos on 06/05/18 09:04 Assessment AND Plan Problems 1. Cytology examination positive for high risk human papillomavirus (HPV) 11/2017 neg pap, positive HPV. Repeat 1 year 2. Rh negative status during in third trimester O09.893 rhogam as needed and 28 weeks- given 3. 37 weeks gestation of Z3A.37 NIPT low risk. carrier and NTD screening declined. anatomy scan normal. 4. Fibromyalgia M79.[address] Joyce 5. Rheumatoid arthritis of multiple sites with negative rheumatoid factor M06.[address] Joyce 6. Supervision of high risk elderly multigravida in third trimester O09.523 PRR MISBAH 06/24/18 emaline girl PC Arben Crawford Abner Plan movement and labor precautions reviewed. ACOG trimester education reviewed and updated. see problem list details for updated plan management information and see below for orders placed at this visit. [place] appropriate handout given. Orders Orders: Coding Level of Care Code OB Routine Diagnoses Cytology examination positive for high risk human papillomavirus (HPV) Rh negative status during in third trimester O09.89 Trimester: third trimester 37 weeks gestation of Z3A.37 Weeks of gestation: 37 weeks Fibromyalgia M79.7 Rheumatoid arthritis of multiple sites with negative rheumatoid factor M06.09 Rheumatoid arthritis location: multiple sites Rheumatoid factor presence: without rheumatoid factor Supervision of high risk elderly multigravida in third trimester O09.523 06/05/18 1003 <Electronically signed by Radha Das MD> Date Radha Das MD Cosigner Signature: Date (if applicable) CC: Observed: 06/01/2018 Status: F Source: [facility] CULTURE, GROUP B 1:56 PM [facility] Culture Group B Beta Streptococcus is not isolated. Performed By: #### M100.1800 #### [facility] [address] [place], [address] SODA CLERK OFFICE VISIT Observed: 05/27/2018 Status: F Source: [facility] REPORT 3:58 PM [facility] [address] [place] [address] OFFICE VISIT Date of Service: 05/27/18 MR#: [id number] Acct: [id number] Name: WAYNE VILLAR Rep #: [id number] : 1980 Provider: TOMÁS Blakely Age/Sex: 37/F [facility] [facility] Status: Signed Intake Vital Signs05/27/18 Height 5 ft 3 in 05/27/18 Weight: 285 lb 2 oz 05/27/18 Body Mass Index (BMI) 50.5 05/27/18 Blood Pressure 112/70 Intake Visit Reasons: 36 week ob - NST - coming @3 Emergency Operator Required: No Is patient in pain?: No Allergies No Known Allergies Allergy (Verified 05/27/18 15:37) Medications hydroxychloroquine 200 mg tablet 200 mg PO QDAY 11/13/17 [History Confirmed 05/27/18] vitamin,calcium,idkmqjka-rtoi-tghiz acid tablet 1 tab PO QDAY 01/16/18 [History Confirmed 05/27/18] promethazine 12.5 mg tablet 12.5 mg PO Q6H PRN #30 tab 02/16/18 [Rx Confirmed 05/27/18] ranitidine 150 mg tablet 150 mg PO BID #60 tab 04/03/18 [Rx Confirmed 05/27/18] ondansetron HCl 4 mg tablet 4 mg PO Q4H #60 tab 04/30/18 [Rx Confirmed 05/27/18] Last Menstral Period: 09/17/17 Zika: Zika virus screening: Negative : No PFSH PFSH Medical History Fibromyalgia (Acute) Rheumatoid arthritis (Acute) Surgical History H/O hernia repair (Acute) Hx of cholecystectomy (Acute) ankle surgery (Acute) Family History Father Hypertension Grandmother Hypoglycemia Social History Smoking Status: Never smoker alcohol intake: never substance use type: does not use caffeine: Yes what type of physical activity do you participate in: walking seatbelt use: always do you feel safe at home: Yes 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 DatName GA/WeeksOutcome Route Bt WeigInfant GLabor LgAnesthesDel LocaProviderFOB e ht en ia tn Unknown 2003 Mary live birNSVD [id number] epidural Mansfiel an th - ful porfirio d Womens l term Care HPI 36 week ob - NST - coming @3: Details: WAYNE VILLAR is a 37 year old who presents for routine OB visit. OB Visit MISBAH Calculator Estimated Delivery Date 06/24/18 Based on LMP (certain) 09/17/17 Current WG 36w 0d Number 1 Expected Delivery Route/Plan Specific Issue/Plans flu vaccine: given tdap vaccine: given rhogam given LARC form signed: declined labor support person: Derek pain management: [] cut cord/dad catch: [] : [] PP control planned: [] special requests: [] Initial Weight: 273 lb Date Weight BP Urine PrFHR FuHt Pres MoCTX DilationFetal StVisit NoProviderComments E ot v te GA G Effac lucose ed Visit Notes Visit Date: 05/27/18 Doing well. NO VB, LOF. NST today JUAN Smalls on 05/27/18 Visit Date: 05/22/18 Doing well. No VB, LOF JUAN Smalls on 05/22/18 Visit Date: 05/15/18 Doing well. No VB, LOF. NST today JUAN Smalls on 05/15/18 Visit Date: 05/07/18 Doing well. No VB,LOF. NST today. JUAN Smalls on 05/07/18 Visit Date: 04/30/18 no vb lof good fm no regular ctx needs weekly nsts from here on out Radha Das MD on 04/30/18 Visit Date: 04/17/18 no vb lof good fm no regular ctx. Radha Das MD on 04/17/18 Visit Date: 04/03/18 no vb lof good fm no regular ctx cbc gct rhogam tdap today Radha Das MD on 04/03/18 Visit Date: 03/13/18 no vb cramping having grant horses in her legs Radha Das MD on 03/13/18 Visit Date: 02/13/18 no vb lof good fm no regular ctx Radha Das MD on 02/13/18 Visit Date: 01/16/18 no vb cramping Radha Das MD on 01/16/18 Visit Date: 12/17/17 Some N AND V last 2 days. Thinks GI virus. Better today. No VB, LOF. Wants NIPT JUAN Smalls on 12/17/17 Visit Date: 12/03/17 Work in for brown vaginal spotting X 2 days. Had SAB 4 year ago. Anxious. Confirmed recent intercourse prior to spotting. JUAN Smalls on 12/03/17 ACOG First Trimester First Trimester: Desire for , Alcohol, Tobacco Cessation, Illicit/Recreational Drug/Substance Use, Intimate Partner Violence, Barriers to care, Unstable Housing, Communication Barriers, Environmental/Work Hazards, Anticipated Course of Care, Toxoplasmosis Precations, Use of Any medications, Sexual activity, Exercise, Dental Care, Sauna/Hot tub use, Seat Belt use, Childbirth classes/Hospital facilities, , Travel, Indications for US and Screening for Aneuploidy Diagnostics Diagnostics Labs Blood Type A NEGATIVE 04/03/18 Antibody Screen NEGATIVE 04/03/18 Hct 35.5 % (37-47) L 04/03/18 Hgb 12.2 g/dl (12.0-15.0) 04/03/18 Obstetrics Ultrasound 05/01/18 Glucose 1 Hr 50 gm 120 mg/dL (70-140) 04/03/18 Details: HIV: Urine Culture: Sequential Screen: NIPT Screen: Office Procedures OB NST Non-Stress Test Indications for Monitoring: Yes other (high risk obesity) Time: 15:51 Heart Rate Baseline: 140 Heart Rate Variability: moderate Movement: Present (extremely active. Held monitor) Heart Rate Accelerations: Present Decelerations: Absent Contractions: Absent Impression: Yes Reactive Non-Stress Test Results [id number] Office Urine Glucose Negative Last Edit by Jossy Nichols on 05/27/18 15:36 Office Urine Protein Negative Last Edit by Jossy Nichols on 05/27/18 15:36 Assessment AND Plan Problems 1. Supervision of high risk elderly multigravida in third trimester O09.523 PRR MISBAH 06/24/18 GRAHAM CrawfordArben Abner 2. 36 weeks gestation of Z3A.36 NIPT low risk. carrier and NTD screening declined. anatomy scan normal. 3. BMI 50.0-59.9, adult Z68.43 growth us after 32 weeks and weekly nsts. 4. Rh negative status during in third trimester O09.893 rhogam as needed and 28 weeks- given Plan Orders placed: GBS, NST reactive Reviewed of labor precautions, movement/kick counts ACOG trimester education reviewed and updated See problem list details for updated plan of care Gestational age appropriate handout given RTO: 1 week Orders Orders: Coding Level of Care Code OB Routine Diagnoses Supervision of high risk elderly multigravida in third trimester O09.523 36 weeks gestation of Z3A.36 Weeks of gestation: 36 weeks BMI 50.0-59.9, adult Z68.43 Rh negative status during in third trimester O09.893 Trimester: third trimester Additional Codes Non-Stress Test (88939) 05/27/18 1558 <Electronically signed by Veronica MARTINEZ> Date Veronica MARTINEZ Cosigner Signature: Date (if applicable) CC: SODA CLERK OFFICE VISIT Observed: 05/22/2018 Status: F Source: ANNE REPORT 9:21 AM [facility] [place] [address] [place] [address] OFFICE VISIT Date of Service: 05/22/18 MR#: [id number] Acct: [id number] Name: WAYNE VILLAR Rep #: [id number] : 1980 Provider: TOMÁS Blakely Age/Sex: 37/F [place] [facility] [place]: Signed Intake Vital Signs05/22/18 Height 5 ft 3 in 05/22/18 Weight: 282 lb 4 oz 05/22/18 Body Mass Index (BMI) 50.0 05/22/18 Blood Pressure 116/68 Intake Visit Reasons: 35 weeks NST Chief Complaint: est ob Emergency Operator Required: No Is patient in pain?: No Allergies No Known Allergies Allergy (Verified 05/22/18 08:42) Medications hydroxychloroquine 200 mg tablet 200 mg PO QDAY 11/13/17 [History Confirmed 05/22/18] vitamin,calcium,huqyjxxg-gmdw-zwnnj acid tablet 1 tab PO QDAY 01/16/18 [History Confirmed 05/22/18] promethazine 12.5 mg tablet 12.5 mg PO Q6H PRN #30 tab 02/16/18 [Rx Confirmed 05/22/18] ranitidine 150 mg tablet 150 mg PO BID #60 tab 04/03/18 [Rx Confirmed 05/22/18] ondansetron HCl 4 mg tablet 4 mg PO Q4H #60 tab 04/30/18 [Rx Confirmed 05/22/18] Last Menstral Period: 09/17/17 Zika: Zika virus screening: Negative : No PFSH PFSH Medical History Fibromyalgia (Acute) Rheumatoid arthritis (Acute) Surgical History H/O hernia repair (Acute) Hx of cholecystectomy (Acute) ankle surgery (Acute) Family History Father Hypertension Grandmother Hypoglycemia Social History Smoking Status: Never smoker alcohol intake: never substance use type: does not use caffeine: Yes what type of physical activity do you participate in: walking seatbelt use: always do you feel safe at home: Yes 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 DatName GA/WeeksOutcome Route [facility] LocaProviderFOB e ht en th ia tn Unknown 2003 Mary live birNSVD [id number] epidural Mansfiel an th - ful porfirio d Womens l term Care HPI 35 weeks NST: Details: WAYNE VILLAR is a 37 year old who presents for routine OB visit. OB Visit MISBAH Calculator Estimated Delivery Date 06/24/18 Based on LMP (certain) 09/17/17 Current WG 35w 2d Number 1 Expected Delivery Route/Plan Specific Issue/Plans flu vaccine: given tdap vaccine: given rhogam given LARC form signed: declined labor support person: Derek pain management: [] cut cord/dad catch: [] : [] PP control planned: [] special requests: [] Initial Weight: 273 lb Date Weight BP Urine PrFHR FuHt Pres MoCTX DilationFetal StVisit NoProviderComments E ot v te [place] G Effac lucose ed Visit Notes Visit Date: 05/22/18 Doing well. No VB, LOF JUAN Smalls on 05/22/18 Visit Date: 05/15/18 Doing well. No VB, LOF. NST today JUAN Smalls on 05/15/18 Visit Date: 05/07/18 Doing well. No VB,LOF. NST today. JUAN Smalls on 05/07/18 Visit Date: 04/30/18 no vb lof good fm no regular ctx needs weekly nsts from here on out Radha Das MD on 04/30/18 Visit Date: 04/17/18 no vb lof good fm no regular ctx. Radha Das MD on 04/17/18 Visit Date: 04/03/18 no vb lof good fm no regular ctx cbc gct rhogam tdap today Radha Das MD on 04/03/18 Visit Date: 03/13/18 no vb cramping having gratn horses in her legs Radha Das MD on 03/13/18 Visit Date: 02/13/18 no vb lof good fm no regular ctx Radha Das MD on 02/13/18 Visit Date: 01/16/18 no vb cramping Radha Das MD on 01/16/18 Visit Date: 12/17/17 Some N AND V last 2 days. Thinks GI virus. Better today. No VB, LOF. Wants NIPT JUAN Smalls on 12/17/17 Visit Date: 12/03/17 Work in for brown vaginal spotting X 2 days. Had SAB 4 year ago. Anxious. Confirmed recent intercourse prior to spotting. JUAN Smalls on 12/03/17 ACOG First Trimester First Trimester: Desire for , Alcohol, Tobacco Cessation, Illicit/Recreational Drug/Substance Use, Intimate Partner Violence, Barriers to care, Unstable Housing, Communication Barriers, Environmental/Work Hazards, Anticipated Course of Care, Toxoplasmosis Precations, Use of Any medications, Sexual activity, Exercise, Dental Care, Sauna/Hot tub use, Seat Belt use, Childbirth classes/Hospital facilities, , Travel, Indications for US and Screening for Aneuploidy Diagnostics Diagnostics Labs Blood Type A NEGATIVE 04/03/18 Antibody Screen NEGATIVE 04/03/18 Hct 35.5 % (37-47) L 04/03/18 Hgb 12.2 g/dl (12.0-15.0) 04/03/18 Obstetrics Ultrasound 05/01/18 Glucose 1 Hr 50 gm 120 mg/dL (70-140) 04/03/18 Miscellaneous Test 12/17/17 Details: HIV: Urine Culture: Sequential Screen: NIPT Screen: Office Procedures OB NST Non-Stress Test Indications for Monitoring: Yes other (obesity in , high risk ) Time: 09:20 Heart Rate Baseline: 150 Heart Rate Variability: moderate Movement: Present Heart Rate Accelerations: Present Decelerations: Absent Contractions: Absent Impression: Yes Reactive Non-Stress Test Results [id number] Office Urine Glucose Negative Last Edit by Julee Santos on 05/22/18 08:53 Office Urine Protein Negative Last Edit by Julee Santos on 05/22/18 08:53 Assessment AND Plan Problems 1. Supervision of high risk elderly multigravida in third trimester O09.523 PRR MISBAH 06/24/18 Arben Menjivar Abner 2. 35 weeks gestation of Z3A.35 NIPT low risk. carrier and NTD screening declined. anatomy scan normal. 3. BMI 50.0-59.9, adult Z68.43 growth us after 32 weeks and weekly nsts. 4. Cytology examination positive for high risk human papillomavirus (HPV) 11/2017 neg pap, positive HPV. Repeat 1 year 5. Rh negative status during in third trimester O09.893 rhogam as needed and 28 weeks- given 6. Fibromyalgia M79.[address] Joyce 7. Rheumatoid arthritis of multiple sites with negative rheumatoid factor M06.[address] Joyce Plan Orders placed: NST reactive Reviewed of labor precautions, movement/kick counts ACOG trimester education reviewed and updated See problem list details for updated plan of care Gestational age appropriate handout given RTO: 1 week Orders Orders: Coding Level of Care Code OB Routine Diagnoses Supervision of high risk elderly multigravida in third trimester O09.523 35 weeks gestation of Z3A.35 Weeks of gestation: 35 weeks BMI 50.0-59.9, adult Z68.43 Cytology examination positive for high risk human papillomavirus (HPV) Rh negative status during in third trimester O09.893 Trimester: third trimester Fibromyalgia M79.7 Rheumatoid arthritis of multiple sites with negative rheumatoid factor M06.09 Rheumatoid arthritis location: multiple sites Rheumatoid factor presence: without rheumatoid factor Additional Codes Non-Stress Test (44082) 05/22/18 0921 <Electronically signed by Veronica MARTINEZ> Date Veronica MARTINEZ Cosigner Signature: Date (if applicable) CC: SODA CLERK OFFICE VISIT Observed: 05/15/2018 Status: F Source: ANNE REPORT 11:40 AM [facility] [address] [place] [address] OFFICE VISIT Date of Service: 05/15/18 MR#: [id number] Acct: [id number] Name: WAYNE VILLAR Rep #: [id number] : 1980 Provider: TOMÁS Blakely Age/Sex: 37/F [place] [facility] [place]: Signed Intake Vital Signs05/15/18 Height 5 ft 3 in 05/15/18 Weight: 282 lb 3 oz 05/15/18 Body Mass Index (BMI) 49.9 05/15/18 Blood Pressure 118/78 Intake Visit Reasons: 34 week ob - NST Emergency Operator Required: No Is patient in pain?: No Allergies No Known Allergies Allergy (Verified 05/15/18 10:34) Medications hydroxychloroquine 200 mg tablet 200 mg PO QDAY 11/13/17 [History Confirmed 05/15/18] vitamin,calcium,qzjsgapo-bsju-jxsrl acid tablet 1 tab PO QDAY 01/16/18 [History Confirmed 05/15/18] promethazine 12.5 mg tablet 12.5 mg PO Q6H PRN #30 tab 02/16/18 [Rx Confirmed 05/15/18] ranitidine 150 mg tablet 150 mg PO BID #60 tab 04/03/18 [Rx Confirmed 05/15/18] ondansetron HCl 4 mg tablet 4 mg PO Q4H #60 tab 04/30/18 [Rx Confirmed 05/15/18] Last Menstral Period: 09/17/17 Zika: Zika virus screening: Negative : No PFSH PFSH Medical History Fibromyalgia (Acute) Rheumatoid arthritis (Acute) Surgical History H/O hernia repair (Acute) Hx of cholecystectomy (Acute) ankle surgery (Acute) Family History Father Hypertension Grandmother Hypoglycemia Social History Smoking Status: Never smoker alcohol intake: never substance use type: does not use caffeine: Yes what type of physical activity do you participate in: walking seatbelt use: always do you feel safe at home: Yes 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 DatName GA/WeeksOutcome Route Bt SilvestregInamber Jj LgAnesthesDel LocaProviderFOB e ht en ia tn Unknown 2003 Mary live birNSVD [id number] epidural Mansfiel an th - ful porfirio d Womens l term Care HPI 34 week ob - NST: Details: WAYNE VILLAR is a 37 year old who presents for routine OB visit. OB Visit MISBAH Calculator Estimated Delivery Date 06/24/18 Based on LMP (certain) 09/17/17 Current WG 34w 2d Number 1 Expected Delivery Route/Plan Specific Issue/Plans flu vaccine: given tdap vaccine: given rhogam given LARC form signed: declined labor support person: Derek pain management: [] cut cord/dad catch: [] : [] PP control planned: [] special requests: [] Initial Weight: 273 lb Date Weight BP Urine PFHR FuHt Pres MCTX DilatioFetal SVisit NProvideComment rot ov n t ote r s EGA Ef Gluco faced se 12/03/1272 lb 125/86 [id number] Work in 8 (+0 oz) e for br 11 own vag w 0d Negati inal sp ve otting X 2 day s. Had SAB 4 y ear ago . Anxi ous. C onfirme d recen t inter course prior t o spott ing. Visit Notes Visit Date: 05/15/18 Doing well. No VB, LOF. NST today JUAN Smalls on 05/15/18 Visit Date: 05/07/18 Doing well. No VB,LOF. NST today. JUAN Smalls on 05/07/18 Visit Date: 04/30/18 no vb lof good fm no regular ctx needs weekly nsts from here on out Radha aDs MD on 04/30/18 Visit Date: 04/17/18 no vb lof good fm no regular ctx. Radha Das MD on 04/17/18 Visit Date: 04/03/18 no vb lof good fm no regular ctx cbc gct rhogam tdap today Radha Das MD on 04/03/18 Visit Date: 03/13/18 no vb cramping having rgant horses in her legs Radha Das MD on 03/13/18 Visit Date: 02/13/18 no vb lof good fm no regular ctx Radha Das MD on 02/13/18 Visit Date: 01/16/18 no vb cramping Radha Das MD on 01/16/18 Visit Date: 12/17/17 Some N AND V last 2 days. Thinks GI virus. Better today. No VB, LOF. Wants NIPT JUAN Smalls on 12/17/17 Visit Date: 12/03/17 Work in for brown vaginal spotting X 2 days. Had SAB 4 year ago. Anxious. Confirmed recent intercourse prior to spotting. JUAN Smalls on 12/03/17 ACOG First Trimester First Trimester: Desire for , Alcohol, Tobacco Cessation, Illicit/Recreational Drug/Substance Use, Intimate Partner Violence, Barriers to care, Unstable Housing, Communication Barriers, Environmental/Work Hazards, Anticipated Course of Care, Toxoplasmosis Precations, Use of Any medications, Sexual activity, Exercise, Dental Care, Sauna/Hot tub use, Seat Belt use, Childbirth classes/Hospital facilities, , Travel, Indications for US and Screening for Aneuploidy Diagnostics Diagnostics Labs Blood Type A NEGATIVE 04/03/18 Antibody Screen NEGATIVE 04/03/18 Hct 35.5 % (37-47) L 04/03/18 Hgb 12.2 g/dl (12.0-15.0) 04/03/18 Obstetrics Ultrasound 05/01/18 Glucose 1 Hr 50 gm 120 mg/dL (70-140) 04/03/18 Miscellaneous Test 12/17/17 Details: HIV: Urine Culture: Sequential Screen: NIPT Screen: Office Procedures OB NST Non-Stress Test Indications for Monitoring: Yes other (high risk ) Time: 11:39 Heart Rate Baseline: 145 Heart Rate Variability: moderate Movement: Present Heart Rate Accelerations: Present Decelerations: Absent Contractions: Absent Impression: Yes Reactive Non-Stress Test Results [id number] Office Urine Glucose Negative Last Edit by Jossy Nichols on 05/15/18 10:32 Office Urine Protein Negative Last Edit by Jossy Nichols on 05/15/18 10:32 Assessment AND Plan Problems 1. Supervision of high risk elderly multigravida in third trimester O09.523 PRR MISBAH 06/24/18 Arben Menjivar Luke 2. 34 weeks gestation of Z3A.34 NIPT low risk. carrier and NTD screening declined. anatomy scan normal. 3. Cytology examination positive for high risk human papillomavirus (HPV) 11/2017 neg pap, positive HPV. Repeat 1 year 4. Rh negative status during in third trimester O09.893 rhogam as needed and 28 weeks- given 5. Fibromyalgia M79.[address] Joyce 6. Rheumatoid arthritis of multiple sites with negative rheumatoid factor M06.[address] Joyce 7. Obesity affecting in third trimester O99.213 Plan Orders placed: NST reactive Reviewed of labor precautions, movement/kick counts ACOG trimester education reviewed and updated See problem list details for updated plan of care Gestational age appropriate handout given RTO: 1 week Orders Orders: Coding Level of Care Code OB Routine Diagnoses Supervision of high risk elderly multigravida in third trimester O09.523 34 weeks gestation of Z3A.34 Weeks of gestation: 34 weeks Cytology examination positive for high risk human papillomavirus (HPV) Rh negative status during in third trimester O09.893 Trimester: third trimester Fibromyalgia M79.7 Rheumatoid arthritis of multiple sites with negative rheumatoid factor M06.09 Rheumatoid arthritis location: multiple sites Rheumatoid factor presence: without rheumatoid factor Obesity affecting in third trimester O99.213 Trimester: third trimester Additional Codes Non-Stress Test (07156) 05/15/18 1140 <Electronically signed by Veronica MARTINEZ> Date Veronica MARTINEZ Cosigner Signature: Date (if applicable) CC: VENOUS DUPLEX LOWER Observed: 05/14/2018 Status: F Source: [place] EXTREMITY 10:48 [place] [facility] [place] [address] [place] [address] Venous Duplex US, Unilateral 05/14/18 1002 MR#: [id number] Acct: [id number] Name: WAYNE VILLAR Rep #: [id number] : 1980 37 From: Sanket Zuñiga MD Attending Dr: Radha Das MD Status: REG CLI Ordering Dr: Radha Das MD Date: 05/14/18 Location: [facility] Sex: F C Admitted: Reason For Study: LEG SWELLING RIGHT LEFT CFV is compressible, spontaneous, phasic, GSV is normal. competent and demonstrates normal CFV is compressible, spontaneous, phasic, augmentation. competent, and demonstrates normal Procedure augmentation. Exam performed in department. FV is compressible, spontaneous, phasic, A preliminary report was called and/or faxed competent and demonstrates normal to Dr. Das. augmentation. POP V is compressible, spontaneous, phasic, competent and demonstrates normal augmentation. T/P Trunk is compressible. PTV is compressible. LT PerV is compressible. <> Interpretation Summary There is no evidence of left lower extremity deep vein thrombosis. Left greater saphenous vein appears patent and compressible segmentally. Normal flow patterns right common femoral vein. Ordering Physician: Radha Das Referring Physician: Radha Das Performed By: Aidee Leung RVT 05/14/181046 Date Sanket Zuñiga MD CC: No Primary Care Physician; Radha Das MD Date Dictated: 05/14/18 1002 Date Transcribed: 05/14/181046 Restaurant Associate: Signed SODA CLERK OFFICE VISIT Observed: 05/07/2018 Status: F Source: ANNE REPORT 9:38 AM [facility] [address] [place] [address] OFFICE VISIT Date of Service: 05/07/18 MR#: [id number] Acct: [id number] Name: WAYNE VILLAR Rep #: [id number] : 1980 Provider: TOMÁS Blakely Age/Sex: 37/F [place] [facility] Status: Signed Intake Vital Signs05/07/18 Height 5 ft 3 in 05/07/18 Weight: 283 lb 05/07/18 Body Mass Index (BMI) 50.1 05/07/18 Blood Pressure 120/64 Intake Visit Reasons: 33 weeks NST Emergency Operator Required: No Is patient in pain?: No Allergies No Known Allergies Allergy (Verified 05/07/18 09:09) Medications hydroxychloroquine 200 mg tablet 200 mg PO QDAY 11/13/17 [History Confirmed 05/07/18] vitamin,calcium,nhmnoclw-sqiq-zvduf acid tablet 1 tab PO QDAY 01/16/18 [History Confirmed 05/07/18] promethazine 12.5 mg tablet 12.5 mg PO Q6H PRN #30 tab 02/16/18 [Rx Confirmed 05/07/18] ranitidine 150 mg tablet 150 mg PO BID #60 tab 04/03/18 [Rx Confirmed 05/07/18] ondansetron HCl 4 mg tablet 4 mg PO Q4H #60 tab 04/30/18 [Rx Confirmed 05/07/18] Last Menstral Period: 09/17/17 Zika: Zika virus screening: Negative : No PFSH PFSH Medical History Fibromyalgia (Acute) Rheumatoid arthritis (Acute) Surgical History H/O hernia repair (Acute) Hx of cholecystectomy (Acute) ankle surgery (Acute) Family History Father Hypertension Grandmother Hypoglycemia Social History Smoking Status: Never smoker alcohol intake: never substance use type: does not use caffeine: Yes what type of physical activity do you participate in: walking seatbelt use: always do you feel safe at home: Yes 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 DatName GA/WeeksOutcome Route Bth WeigInfant GLabor LgAnesthesDel LocaProviderFOB e ht en th ia tn Unknown 2003 Mary live birNSVD [id number] epidural Mansfiel an th - ful porfirio d Womens l term Care HPI 33 weeks NST: Details: WAYNE VILLAR is a 37 year old who presents for routine OB visit. OB Visit MISBAH Calculator Estimated Delivery Date 06/24/18 Based on LMP (certain) 09/17/17 Current WG 33w 1d Number 1 Expected Delivery Route/Plan Specific Issue/Plans flu vaccine: given tdap vaccine: given rhogam given LARC form signed: declined labor support person: Derek pain management: [] cut cord/dad catch: [] : [] PP control planned: [] special requests: [] Initial Weight: 273 lb Date Weight BP Urine PrFHR FuHt Pres MoCTX DilationFetal StVisit NoProviderComments E ot v te [place] G Effac lucose ed Visit Notes Visit Date: 05/07/18 Doing well. No VB,LOF. NST today. JUAN Smalls on 05/07/18 Visit Date: 04/30/18 no vb lof good fm no regular ctx needs weekly nsts from here on out Radha Das MD on 04/30/18 Visit Date: 04/17/18 no vb lof good fm no regular ctx. Radha Das MD on 04/17/18 Visit Date: 04/03/18 no vb lof good fm no regular ctx cbc gct rhogam tdap today Radha Das MD on 04/03/18 Visit Date: 03/13/18 no vb cramping having grant horses in her legs Radha Das MD on 03/13/18 Visit Date: 02/13/18 no vb lof good fm no regular ctx Radha Das MD on 02/13/18 Visit Date: 01/16/18 no vb cramping Radha Das MD on 01/16/18 Visit Date: 12/17/17 Some N AND V last 2 days. Thinks GI virus. Better today. No VB, LOF. Wants NIPT JUAN Smalls on 12/17/17 Visit Date: 12/03/17 Work in for brown vaginal spotting X 2 days. Had SAB 4 year ago. Anxious. Confirmed recent intercourse prior to spotting. JUAN Smalls on 12/03/17 ACOG First Trimester First Trimester: Desire for , Alcohol, Tobacco Cessation, Illicit/Recreational Drug/Substance Use, Intimate Partner Violence, Barriers to care, Unstable Housing, Communication Barriers, Environmental/Work Hazards, Anticipated Course of Care, Toxoplasmosis Precations, Use of Any medications, Sexual activity, Exercise, Dental Care, Sauna/Hot tub use, Seat Belt use, Childbirth classes/Hospital facilities, , Travel, Indications for US and Screening for Aneuploidy Diagnostics Diagnostics Labs Blood Type A NEGATIVE 04/03/18 Antibody Screen NEGATIVE 04/03/18 Hct 35.5 % (37-47) L 04/03/18 Hgb 12.2 g/dl (12.0-15.0) 04/03/18 Obstetrics Ultrasound 05/01/18 Rubella IgG Antibody 202.1 IU/mL 12/03/17 RPR NONREACTIVE (NONREACTIVE) 12/03/17 Hep Bs Antigen Negative (Negative) 12/03/17 Chlam trachomat DNA PCR Negative (Negative) 11/13/17 N.gonorrhoeae DNA (PCR) Negative (Negative) 11/13/17 Glucose 1 Hr 50 gm 120 mg/dL (70-140) 04/03/18 Miscellaneous Test 12/17/17 Details: HIV: Urine Culture: Sequential Screen: NIPT Screen: Office Procedures OB NST Non-Stress Test Indications for Monitoring: Yes other (high risk pregn elderly multigravida) Time: 09:33 Heart Rate Baseline: 145 Heart Rate Variability: moderate Movement: Present Heart Rate Accelerations: Present Decelerations: Absent Contractions: Absent Impression: Yes Reactive Non-Stress Test Results [id number] Office Urine Glucose Negative Last Edit by Robina Miranda on 05/07/18 09:12 Office Urine Protein Negative Last Edit by Robina Miranda on 05/07/18 09:12 Assessment AND Plan Problems 1. Supervision of high risk elderly multigravida in third trimester O09.523 PRR MISBAH 06/24/18 PC Arben Crawford bAner 2. BMI 50.0-59.9, adult Z68.43 growth us after 32 weeks and weekly nsts. 3. 33 weeks gestation of Z3A.33 NIPT low risk. carrier and NTD screening declined. anatomy scan normal. 4. Cytology examination positive for high risk human papillomavirus (HPV) 11/2017 neg pap, positive HPV. Repeat 1 year 5. Rh negative status during in third trimester O09.893 rhogam as needed and 28 weeks- given Plan Orders placed: NST reactive Reviewed of labor precautions, movement/kick counts ACOG trimester education reviewed and updated See problem list details for updated plan of care Gestational age appropriate handout given RTO: 1 week NST/OB Orders Orders: Coding Level of Care Code OB Routine Diagnoses Supervision of high risk elderly multigravida in third trimester O09.523 BMI 50.0-59.9, adult Z68.43 33 weeks gestation of Z3A.33 Weeks of gestation: 33 weeks Cytology examination positive for high risk human papillomavirus (HPV) Rh negative status during in third trimester O09.893 Trimester: third trimester Additional Codes Non-Stress Test (30021) 05/07/18 0938 <Electronically signed by Veronica MARTINEZ> Date Veronica MARTINEZ Cosigner Signature: Date (if applicable) CC: OB LIMITED WITH Observed: 05/01/2018 Status: F Source: [facility] 1:58 PM [facility] [place] [address] OB Limited With Biometrics MR#: [id number] Acct: [id number] Name: WAYNE VILLAR Rep #: [id number] : 1980 F 37 From: Eddie Graham MD PCP: Care Physician, No Primary Status: REG CLI Study: OB Limited With Biometrics Date of Exam: 05/01/18 Exam# [id number] Ordering Dr: Radha Das MD STUDY: SECOND AND THIRD TRIMESTER OBSTETRICAL ULTRASOUND - LIMITED REASON FOR EXAM: Female, 37 years old. Examination of well-being LMP: PRIOR ULTRASOUND: None. TECHNIQUE: Transabdominal probe was used TECHNICAL QUALITY: February 06, 2018 FINDINGS: There is a single intrauterine fetus. The fetus is in a cephalic presentation. There is demonstrated cardiac activity with a heart rate of 125 bpm. There is a normal amniotic fluid volume. The largest amniotic fluid pocket measures 5.9 x 2.8 cm. The amniotic fluid index (ALEX) is 14 cm. The placenta is anterior and low-lying . There are Grade 0 placental changes. The cervix measures 4 cm in length. BIOMETRY: BPD: 8.2 cm: 33 weeks, 0 days HC: 30.2 cm: . 33 weeks, 4 days AC: 29.3 cm: 33 weeks, 3 days FL: 6.3 cm: 32 weeks, 5 days Age by LMP: 32 weeks, 2 days. MISBAH by LMP: 06/17/2018. age by prior US: 19 weeks, 1 days. MISBAH by prior US: 06/25/2018. age by current US: 53 weeks, 2 days. MISBAH by current US: 06/17/2018. Estimated weight: 2124 grams, +/- 310 grams, 67 percentile. US/OB Limited With Biometrics IMPRESSION: There has been a normal growth of the fetus since the last examination of March 05, 2018. The fetus is currently in a cephalic presentation and longitudinal lie with composite measurements averaging out to be equivalent to 33 weeks 2 days +/- 5 days with an expected date of delivery of 06/17/2018. Using the LMP the expected date would be 06/17/2018. Estimated weight of 212 4 g +/- 310 g. This is in the 67th percentile Electronically Signed: Eddie Graham MD at 7:42 EDT Tel , Service support , CC: No Primary Care Physician; Radha Das MD Restaurant Associate: Signed SODA CLERK OFFICE VISIT Observed: 04/30/2018 Status: F Source: [facility] 10:25 AM [facility] [place] [address] [place] [address] OFFICE VISIT Date of Service: 04/30/18 MR#: [id number] Acct: [id number] Name: WAYNE VILLAR Rep #: [id number] : 1980 Provider: Radha Das MD Age/Sex: 37/F [place] [facility]: Signed Intake Vital Signs04/30/18 Height 5 ft 3 in 04/30/18 Weight: 282 lb 04/30/18 Body Mass Index (BMI) 49.9 04/30/18 Blood Pressure 124/68 H Intake Visit Reasons: 32 week ob Emergency Operator Required: No Is patient in pain?: No Allergies No Known Allergies Allergy (Verified 04/30/18 09:51) Medications hydroxychloroquine 200 mg tablet 200 mg PO QDAY 11/13/17 [History Confirmed 04/30/18] vitamin,calcium,nomtakth-hdog-tljaw acid tablet 1 tab PO QDAY 01/16/18 [History Confirmed 04/30/18] promethazine 12.5 mg tablet 12.5 mg PO Q6H PRN #30 tab 02/16/18 [Rx Confirmed 04/30/18] ranitidine 150 mg tablet 150 mg PO BID #60 tab 04/03/18 [Rx Confirmed 04/30/18] ondansetron HCl 4 mg tablet 4 mg PO Q4H #60 tab 04/30/18 [Rx Confirmed 04/30/18] Last Menstral Period: 09/17/17 Zika: Zika virus screening: Negative : No PFSH PFSH Medical History Fibromyalgia (Acute) Rheumatoid arthritis (Acute) Surgical History H/O hernia repair (Acute) Hx of cholecystectomy (Acute) ankle surgery (Acute) Family History Father Hypertension Grandmother Hypoglycemia Social History Smoking Status: Never smoker alcohol intake: never substance use type: does not use caffeine: Yes what type of physical activity do you participate in: walking seatbelt use: always do you feel safe at home: Yes 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 DatName GA/WeeksOutcome Route [facility] WeigInfant GLanikole LgAnesthesDel LocaProviderFOB e ht en ia tn Unknown 2003 Mary live birNSVD [id number] epidural Mansfiel an th - ful porfirio d Womens l term Care HPI 32 week ob: Details: WAYNE VILLAR is a 37 year old who presents for routine OB visit. Urine dip negative. OB Visit MISBAH Calculator Estimated Delivery Date 06/24/18 Based on LMP (certain) 09/17/17 Current WG 32w 1d Number 1 Expected Delivery Route/Plan Specific Issue/Plans flu vaccine: given tdap vaccine: given rhogam given LARC form signed: declined labor support person: Derek pain management: [] cut cord/dad catch: [] : [] PP control planned: [] special requests: [] Initial Weight: 273 lb Date Weight BP Urine PrFHR FuHt Pres MoCTX DilationFetal StVisit NoProviderComments E ot v te GA G Effac lucose ed Visit Notes Visit Date: 04/30/18 no vb lof good fm no regular ctx needs weekly nsts from here on out Radha Das MD on 04/30/18 Visit Date: 04/17/18 no vb lof good fm no regular ctx. Radha Das MD on 04/17/18 Visit Date: 04/03/18 no vb lof good fm no regular ctx cbc gct rhogam tdap today Radha Das MD on 04/03/18 Visit Date: 03/13/18 no vb cramping having grant horses in her legs Radha Das MD on 03/13/18 Visit Date: 02/13/18 no vb lof good fm no regular ctx Radha Das MD on 02/13/18 Visit Date: 01/16/18 no vb cramping Radha Das MD on 01/16/18 Visit Date: 12/17/17 Some N AND V last 2 days. Thinks GI virus. Better today. No VB, LOF. Wants NIPT JUAN Smalls on 12/17/17 Visit Date: 12/03/17 Work in for brown vaginal spotting X 2 days. Had SAB 4 year ago. Anxious. Confirmed recent intercourse prior to spotting. JUAN Smalls on 12/03/17 ACOG First Trimester First Trimester: Desire for , Alcohol, Tobacco Cessation, Illicit/Recreational Drug/Substance Use, Intimate Partner Violence, Barriers to care, Unstable Housing, Communication Barriers, Environmental/Work Hazards, Anticipated Course of Care, Toxoplasmosis Precations, Use of Any medications, Sexual activity, Exercise, Dental Care, Sauna/Hot tub use, Seat Belt use, Childbirth classes/Hospital facilities, , Travel, Indications for US and Screening for Aneuploidy Diagnostics Diagnostics Labs Blood Type A NEGATIVE 04/03/18 Antibody Screen NEGATIVE 04/03/18 Hct 35.5 % (37-47) L 04/03/18 Hgb 12.2 g/dl (12.0-15.0) 04/03/18 Obstetrics Ultrasound 02/06/18 Rubella IgG Antibody 202.1 IU/mL 12/03/17 RPR NONREACTIVE (NONREACTIVE) 12/03/17 Hep Bs Antigen Negative (Negative) 12/03/17 Chlam trachomat DNA PCR Negative (Negative) 11/13/17 N.gonorrhoeae DNA (PCR) Negative (Negative) 11/13/17 Glucose 1 Hr 50 gm 120 mg/dL (70-140) 04/03/18 Miscellaneous Test 12/17/17 Details: HIV: Urine Culture: Sequential Screen: NIPT Screen: Assessment AND Plan Problems 1. Cytology examination positive for high risk human papillomavirus (HPV) 11/2017 neg pap, positive HPV. Repeat 1 year 2. Rh negative status during in third trimester O09.893 rhogam as needed and 28 weeks- given 3. 32 weeks gestation of Z3A.32 NIPT low risk. carrier and NTD screening declined. anatomy scan normal. 4. Supervision of high risk elderly multigravida in first trimester O09.521 PRR MISBAH 06/24/18 GRAHAM CrawfordArben Abner 5. BMI 50.0-59.9, adult Z68.43 growth us after 32 weeks and weekly nsts. 6. Fibromyalgia M79.[address] Joyce 7. Rheumatoid arthritis of multiple sites with negative rheumatoid factor M06.[address] Joyce Plan movement and labor precautions reviewed. ACOG trimester education reviewed and updated. see problem list details for updated plan management information and see below for orders placed at this visit. GA appropriate handout given. Orders Orders: Medications New: Coding Level of Care Code OB Routine Diagnoses Cytology examination positive for high risk human papillomavirus (HPV) Rh negative status during in third trimester O09.893 Trimester: third trimester 32 weeks gestation of Z3A.32 Weeks of gestation: 32 weeks Supervision of high risk elderly multigravida in first trimester O09.521 BMI 50.0-59.9, adult Z68.43 Fibromyalgia M79.7 Rheumatoid arthritis of multiple sites with negative rheumatoid factor M06.09 Rheumatoid arthritis location: multiple sites Rheumatoid factor presence: without rheumatoid factor 04/30/18 1025 <Electronically signed by Radha Das MD> Date Radha Das MD Cosigner Signature: Date (if applicable) CC: SODA CLERK OFFICE VISIT Observed: 04/17/2018 Status: F Source: [facility] 12:42 PM [facility] [address] [place] [address] OFFICE VISIT Date of Service: 04/17/18 MR#: [id number] Acct: [id number] Name: WAYNE VILLAR Rep #: [id number] : 1980 Provider: Radha Das MD Age/Sex: 37/F [place] [facility]: Signed Intake Vital Signs04/17/18 Height 5 ft 3 in 04/17/18 Weight: 281 lb 8 oz 04/17/18 Body Mass Index (BMI) 49.8 04/17/18 Blood Pressure 130/80 H Intake Visit Reasons: 30 weeks Emergency Operator Required: No Is patient in pain?: No Allergies No Known Allergies Allergy (Verified 04/17/18 12:22) Medications hydroxychloroquine 200 mg tablet 200 mg PO QDAY 11/13/17 [History Confirmed 04/17/18] vitamin,calcium,yfhnopmk-nysg-yopym acid tablet 1 tab PO QDAY 01/16/18 [History Confirmed 04/17/18] promethazine 12.5 mg tablet 12.5 mg PO Q6H PRN #30 tab 02/16/18 [Rx Confirmed 04/17/18] ranitidine 150 mg tablet 150 mg PO BID #60 tab 04/03/18 [Rx Confirmed 04/17/18] Last Menstral Period: 09/17/17 Zika: Zika virus screening: Negative : No PFSH PFSH Medical History Fibromyalgia (Acute) Rheumatoid arthritis (Acute) Surgical History H/O hernia repair (Acute) Hx of cholecystectomy (Acute) ankle surgery (Acute) Family History Father Hypertension Grandmother Hypoglycemia Social History Smoking Status: Never smoker alcohol intake: never substance use type: does not use caffeine: Yes what type of physical activity do you participate in: walking seatbelt use: always do you feel safe at home: Yes 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 DatName GA/WeeksOutcome Route [facility] LocaProviderFOB e ht en th ia tn Unknown 2003 Mary live birNSVD [id number] epidural Mansfiel an th - ful porfirio d Womens l term Care HPI 30 weeks: Details: WAYNE VILLAR is a 37 year old who presents for routine OB visit. OB Visit MISBAH Calculator Estimated Delivery Date 06/24/18 Based on LMP (certain) 09/17/17 Current WG 30w 2d Number 1 Expected Delivery Route/Plan Specific Issue/Plans flu vaccine: given tdap vaccine: given rhogam given LARC form signed: declined labor support person: Derek pain management: [] cut cord/dad catch: [] : [] PP control planned: [] special requests: [] Initial Weight: 273 lb Date Weight BP Urine PrFHR FuHt Pres MoCTX DilationFetal StVisit NoProviderComments E ot v te GA G Effac lucose ed Visit Notes Visit Date: 04/17/18 no vb lof good fm no regular ctx. Radha Das MD on 04/17/18 Visit Date: 04/03/18 no vb lof good fm no regular ctx cbc gct rhogam tdap today Radha Das MD on 04/03/18 Visit Date: 03/13/18 no vb cramping having grant horses in her legs Radha Das MD on 03/13/18 Visit Date: 02/13/18 no vb lof good fm no regular ctx Radha Das MD on 02/13/18 Visit Date: 01/16/18 no vb cramping Radha Das MD on 01/16/18 Visit Date: 12/17/17 Some N AND V last 2 days. Thinks GI virus. Better today. No VB, LOF. Wants NIPT JUAN Smalls on 12/17/17 Visit Date: 12/03/17 Work in for brown vaginal spotting X 2 days. Had SAB 4 year ago. Anxious. Confirmed recent intercourse prior to spotting. JUAN Smalls on 12/03/17 ACOG First Trimester First Trimester: Desire for , Alcohol, Tobacco Cessation, Illicit/Recreational Drug/Substance Use, Intimate Partner Violence, Barriers to care, Unstable Housing, Communication Barriers, Environmental/Work Hazards, Anticipated Course of Care, Toxoplasmosis Precations, Use of Any medications, Sexual activity, Exercise, Dental Care, Sauna/Hot tub use, Seat Belt use, Childbirth classes/Hospital facilities, , Travel, Indications for US and Screening for Aneuploidy Diagnostics Diagnostics Labs Blood Type A NEGATIVE 04/03/18 Antibody Screen NEGATIVE 04/03/18 Hct 35.5 % (37-47) L 04/03/18 Hgb 12.2 g/dl (12.0-15.0) 04/03/18 Obstetrics Ultrasound 02/06/18 Rubella IgG Antibody 202.1 IU/mL 12/03/17 RPR NONREACTIVE (NONREACTIVE) 12/03/17 Hep Bs Antigen Negative (Negative) 12/03/17 Chlam trachomat DNA PCR Negative (Negative) 11/13/17 N.gonorrhoeae DNA (PCR) Negative (Negative) 11/13/17 Glucose 1 Hr 50 gm 120 mg/dL (70-140) 04/03/18 Miscellaneous Test 12/17/17 Details: HIV: Urine Culture: Sequential Screen: NIPT Screen: Results [id number] Office Urine Glucose Negative Last Edit by Jossy Nichols on 04/17/18 12:21 Office Urine Protein Negative Last Edit by Jossy Nichols on 04/17/18 12:21 Assessment AND Plan Problems 1. 30 weeks gestation of Z3A.30 NIPT low risk. carrier and NTD screening declined. anatomy scan normal. 2. Cytology examination positive for high risk human papillomavirus (HPV) 11/2017 neg pap, positive HPV. Repeat 1 year 3. Rh negative status during in third trimester O09.893 rhogam as needed and 28 weeks- given 4. Supervision of high risk elderly multigravida in first trimester O09.521 PRR MISBAH 06/24/18 Arben Menjivar Abner Plan movement and labor precautions reviewed. ACOG trimester education reviewed and updated. see problem list details for updated plan management information and see below for orders placed at this visit. GA appropriate handout given. Orders Orders: Coding Level of Care Code OB Routine Diagnoses 30 weeks gestation of Z3A.30 Weeks of gestation: 30 weeks Cytology examination positive for high risk human papillomavirus (HPV) Rh negative status during in third trimester O09.893 Trimester: third trimester Supervision of high risk elderly multigravida in first trimester O09.521 04/17/18 1242 <Electronically signed by Radha Das MD> Date Radha Das MD Cosigner Signature: Date (if applicable) CC: CBC W/DIFF, AUTOMATED Collected: 04/03/2018 Status: F Source: [facility] 12:56 PM [facility] [place] TYPE CODE TESTS RESULT OUT OF RANGE REFERENCE UNITS LAB L100.1000 4.4-11.0 K/mm3 Normal WBC 10.7 LAB L100.1200 4.2-5.4 M/mm3 Low RBC 4.07 LAB L100.1300 12.0-15.0 g/dl Normal HGB 12.2 LAB L100.1400 37-47 % Low HCT 35.5 LAB L100.1500 81-99 fL Normal MCV 87.2 LAB L100.1600 27.0-32.0 pg Normal MCH 30.0 LAB L100.1700 32-36 g/gl Normal MCHC 34.4 LAB L100.1810 11.6-14.6 % Normal RDW CV 13.7 LAB L100.1820 35.1-43.9 fl Normal RDW SD 43.3 LAB L100.1900 150-450 K/mm3 Normal PLT 210 LAB L100.2000 6.2-12.0 fl Normal MPV 9.3 LAB L100.2100 47-70 % High NEUT% 72.9 LAB L100.2200 19-41 % Low LY% 17.7 LAB L100.2300 0-10 % Normal MONO% 7.4 LAB L100.2400 0-5 % Normal EO% 1.2 LAB L100.2500 0-1 % Normal BASO% 0.2 LAB L100.2550 0.0-0.9 % Normal IM GRAN % 0.600 Result Comment: IG% - Immature Granulocytes (promyelocytes, myelocytes and metamyelocytes) > 1% indicates that a LEFT SHIFT is Present. LAB L100.2620 2.0-7.7 X10 3/uL High Absolute Neut 7.8 LAB L100.2720 0.83-4.51 X10 3/ul Normal Absolute Lymph 1.90 LAB L100.4500 SMEAR Normal COMMENT S Performed By: #### L100.0100, B101.7450 #### [facility] [address] [place], [address] TYPE AND SCREEN Collected: 04/03/2018 Status: F Source: [facility] 12:56 PM [facility] Order Comment: Reason for Type AND Screen/Red Cells: TYPE CODE TESTS RESULT OUT OF RANGE REFERENCE UNITS LAB B10.0800 A Normal BLOOD TYPE GEL NEGATIVE LAB B100.4000 Normal Antibody NEGATIVE Screen Performed By: #### L100.0100, B101.7450 #### [facility] [address] [place], [address] GLUCOSE CHALLENGE GEST Collected: 04/03/2018 Status: F Source: [facility]NE 1H 50G 12:56 PM [facility] TYPE CODE TESTS RESULT OUT OF RANGE REFERENCE UNITS LAB L501.0250 70-140 mg/dL Normal GLU GEST 120 50g 1H Performed By: #### L501.0250 #### [facility] [address] [place], [address] SODA CLERK OFFICE VISIT Observed: 04/03/2018 Status: F Source: [facility] REPORT 12:31 PM [facility] [address] [place] [address] OFFICE VISIT Date of Service: 04/03/18 MR#: [id number] Acct: [id number] Name: WAYNE VILLAR Rep #: [id number] : 1980 Provider: Radha Das MD Age/Sex: 37/F [place] [facility] [place]: Signed Intake Vital Signs04/03/18 Height 5 ft 3 in 04/03/18 Weight: 280 lb 6 oz 04/03/18 Body Mass Index (BMI) 49.6 04/03/18 Blood Pressure 133/78 H Intake Visit Reasons: 28 weeks Is patient in pain?: No Allergies No Known Allergies Allergy (Verified 04/03/18 12:05) Medications hydroxychloroquine 200 mg tablet 200 mg PO QDAY 11/13/17 [History Confirmed 04/03/18] vitamin,calcium,yrncoqwl-krtv-ymuxq acid tablet 1 tab PO QDAY 01/16/18 [History Confirmed 04/03/18] promethazine 12.5 mg tablet 12.5 mg PO Q6H PRN #30 tab 02/16/18 [Rx Confirmed 04/03/18] Last Menstral Period: 09/17/17 Zika: Zika virus screening: Negative : No PFSH PFSH Medical History Fibromyalgia (Acute) Rheumatoid arthritis (Acute) Surgical History H/O hernia repair (Acute) Hx of cholecystectomy (Acute) ankle surgery (Acute) Family History Father Hypertension Grandmother Hypoglycemia Social History Smoking Status: Never smoker alcohol intake: never substance use type: does not use caffeine: Yes what type of physical activity do you participate in: walking seatbelt use: always do you feel safe at home: Yes 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 DatName GA/WeeksOutcome Route [facility] LocaProviderFOB e ht en ia tn Unknown 2003 Mary live birNSVD [id number] epidural [facility]iel [facility] porfirio d Womens l term Care HPI 28 weeks: Details: WAYNE VILLAR is a 37 year old who presents for routine OB visit. OB Visit MISBAH Calculator Estimated Delivery Date 06/24/18 Based on LMP (certain) 09/17/17 Current WG 28w 2d Number 1 Expected Delivery Route/Plan Specific Issue/Plans flu vaccine: no minichart given: [] tdap vaccine: [] rhogam: [] LARC form signed: [] labor support person: Derek pain management: [] cut cord/dad catch: [] : [] PP control planned: [] special requests: [] Initial Weight: 273 lb Date Weight BP Urine PrFHR FuHt Pres MoCTX DilationFetal StVisit NoProviderComments E ot v te GA G Effac lucose ed Visit Notes Visit Date: 04/03/18 no vb lof good fm no regular ctx cbc gct rhogam tdap today Radha Das MD on 04/03/18 Visit Date: 03/13/18 no vb cramping having grant horses in her legs Radha Das MD on 03/13/18 Visit Date: 02/13/18 no vb lof good fm no regular ctx Radha Das MD on 02/13/18 Visit Date: 01/16/18 no vb cramping Radha Das MD on 01/16/18 Visit Date: 12/17/17 Some N AND V last 2 days. Thinks GI virus. Better today. No VB, LOF. Wants NIPT JUAN Smalls on 12/17/17 Visit Date: 12/03/17 Work in for brown vaginal spotting X 2 days. Had SAB 4 year ago. Anxious. Confirmed recent intercourse prior to spotting. JUAN Smalls on 12/03/17 ACOG First Trimester First Trimester: Desire for , Alcohol, Tobacco Cessation, Illicit/Recreational Drug/Substance Use, Intimate Partner Violence, Barriers to care, Unstable Housing, Communication Barriers, Environmental/Work Hazards, Anticipated Course of Care, Toxoplasmosis Precations, Use of Any medications, Sexual activity, Exercise, Dental Care, Sauna/Hot tub use, Seat Belt use, Childbirth classes/Hospital facilities, , Travel, Indications for US and Screening for Aneuploidy Diagnostics Diagnostics Labs Blood Type A NEGATIVE 12/03/17 Antibody Screen NEGATIVE 12/03/17 Hct 38.9 % (37-47) 12/03/17 Hgb 13.4 g/dl (12.0-15.0) 12/03/17 Obstetrics Ultrasound 02/06/18 Rubella IgG Antibody 202.1 IU/mL 12/03/17 RPR NONREACTIVE (NONREACTIVE) 12/03/17 Hep Bs Antigen Negative (Negative) 12/03/17 Chlam trachomat DNA PCR Negative (Negative) 11/13/17 N.gonorrhoeae DNA (PCR) Negative (Negative) 11/13/17 Miscellaneous Test 12/17/17 Details: HIV: Urine Culture: Sequential Screen: NIPT Screen: Office Meds RhoGAM Ultra-Filtered PLUS Performing Provider: Radha Das MD Administered by: Mya Cheung on 04/03/18 12:07 Dose Route Admin Location Lot Number Expiration Date [facility] [employer] Fin[employer] Machine Operator 1,500 unit IM right gluteal [id number] 10/25/19 6747-1537-59 [employer] Results [id number] Office Urine Glucose Negative Last Edit by Mya Cheung on 04/03/18 12:24 Office Urine Protein Negative Last Edit by Mya Cheung on 04/03/18 12:24 Immunizations Boostrix Tdap Performing Provider: Radha Das MD Administered by: Mya Cheung on 04/03/18 12:07 Dose Route Admin Location Lot Number Expiration Date [facility] [employer] Operator 0.5 mL IM Right Deltoid [id number] 05/30/19 06460-915-14 [employer] VIS Given Date VIS Publication Date 04/03/18 08/30/14 Eligibility Eligibility Date Assessment AND Plan Problems 1. 28 weeks gestation of Z3A.28 NIPT low risk. carrier and NTD screening declined. anatomy scan normal. 2. Cytology examination positive for high risk human papillomavirus (HPV) 11/2017 neg pap, positive HPV. Repeat 1 year 3. Rh negative status during in third trimester O09.893; Z67.91 rhogam as needed and 28 weeks 4. Supervision of high risk elderly multigravida in first trimester O09.521 PRR MISBAH 06/24/18 Arben Menjivar Chasitykane Plan ACOG trimester education reviewed and updated. see problem list details for updated plan management information and see below for orders placed at this visit. GA appropriate handout given. Orders Orders: Medications Discontinued: Boostrix Tdap (diphth,pertus(acell),tetanus) Discontinued 0.5 mL IM ONCE #1 0RF NS Z23 Reason: Office Medication has been Documented as given Coding Level of Care Code OB Routine Diagnoses 28 weeks gestation of Z3A.28 Weeks of gestation: 28 weeks Cytology examination positive for high risk human papillomavirus (HPV) Rh negative status during in third trimester O09.893; Z67.91 Trimester: third trimester Supervision of high risk elderly multigravida in first trimester O09.521 04/03/18 1231 <Electronically signed by Radha Das MD> Date Radha Das MD Cosigner Signature: Date (if applicable) CC: SODA CLERK OFFICE VISIT Observed: 03/14/2018 Status: F Source: ANNE REPORT 5:56 AM [facility] [address] [place] [address] OFFICE VISIT Date of Service: 03/13/18 MR#: [id number] Acct: [id number] Name: WAYNE VILLAR Rep #: [id number] : 1980 Provider: Radha Das MD Age/Sex: 37/F [place] [facility] [place]: Signed Intake Vital Signs03/13/18 Height 5 ft 3 in 03/13/18 Weight: 281 lb 03/13/18 Body Mass Index (BMI) 49.7 03/13/18 Blood Pressure 123/70 Intake Visit Reasons: 24 weeks Emergency Operator Required: No Is patient in pain?: No Allergies No Known Allergies Allergy (Verified 03/13/18 12:03) Medications hydroxychloroquine 200 mg tablet 200 mg PO QDAY 11/13/17 [History Confirmed 03/13/18] vitamin,calcium,piccumyr-ahfv-jbddt acid tablet 1 tab PO QDAY 01/16/18 [History Confirmed 03/13/18] promethazine 12.5 mg tablet 12.5 mg PO Q6H PRN #30 tab 02/16/18 [Rx Confirmed 03/13/18] Last Menstral Period: 09/17/17 Zika: Zika virus screening: Negative : No PFSH PFSH Medical History Fibromyalgia (Acute) Rheumatoid arthritis (Acute) Surgical History H/O hernia repair (Acute) Hx of cholecystectomy (Acute) ankle surgery (Acute) Family History Father Hypertension Grandmother Hypoglycemia Social History Smoking Status: Never smoker alcohol intake: never substance use type: does not use caffeine: Yes what type of physical activity do you participate in: walking seatbelt use: always do you feel safe at home: Yes 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 DatName GA/WeeksOutcome [facility] LocaProviderFOB e ht en ia tn Unknown 2003 [address] [id number] epidural Mansfiel an th - ful porfirio d Womens l term Care HPI 24 weeks: Details: WAYNE VILLAR is a 37 year old who presents for routine OB visit. OB Visit MISBAH Calculator Estimated Delivery Date 06/24/18 Based on LMP (certain) 09/17/17 Current WG 25w 3d Number 1 Expected Delivery Route/Plan Specific Issue/Plans flu vaccine: no minichart given: [] tdap vaccine: [] rhogam: [] LARC form signed: [] labor support person: Derek pain management: [] cut cord/dad catch: [] : [] PP control planned: [] special requests: [] Initial Weight: 273 lb Date Weight BP Urine PFHR FuHt Pres MCTX DilatioFetal SVisit NProvideComment rot ov n t ote r s EGA Ef Gluco faced se 12/03/1272 lb 125/86 [id number] Work in 8 (+0 oz) e for br 11 own vag w 0d Negati inal sp ve otting X 2 day s. Had SAB 4 y ear ago . Anxi ous. C onfirme d recen t inter course prior t o spott ing. Visit Notes Visit Date: 03/13/18 no vb cramping having grant horses in her legs Radha Das MD on 03/13/18 Visit Date: 02/13/18 no vb lof good fm no regular ctx Radha Das MD on 02/13/18 Visit Date: 01/16/18 no vb cramping Radha Das MD on 01/16/18 Visit Date: 12/17/17 Some N AND V last 2 days. Thinks GI virus. Better today. No VB, LOF. Wants NIPT JUAN Smalls on 12/17/17 Visit Date: 12/03/17 Work in for brown vaginal spotting X 2 days. Had SAB 4 year ago. Anxious. Confirmed recent intercourse prior to spotting. JUAN Smalls on 12/03/17 ACOG First Trimester First Trimester: Desire for , Alcohol, Tobacco Cessation, Illicit/Recreational Drug/Substance Use, Intimate Partner Violence, Barriers to care, Unstable Housing, Communication Barriers, Environmental/Work Hazards, Anticipated Course of Care, Toxoplasmosis Precations, Use of Any medications, Sexual activity, Exercise, Dental Care, Sauna/Hot tub use, Seat Belt use, Childbirth classes/Hospital facilities, , Travel, Indications for US and Screening for Aneuploidy Diagnostics Diagnostics Labs Blood Type A NEGATIVE 12/03/17 Antibody Screen NEGATIVE 12/03/17 Hct 38.9 % (37-47) 12/03/17 Hgb 13.4 g/dl (12.0-15.0) 12/03/17 Obstetrics Ultrasound 02/06/18 Rubella IgG Antibody 202.1 IU/mL 12/03/17 RPR NONREACTIVE (NONREACTIVE) 12/03/17 Hep Bs Antigen Negative (Negative) 12/03/17 Chlam trachomat DNA PCR Negative (Negative) 11/13/17 N.gonorrhoeae DNA (PCR) Negative (Negative) 11/13/17 Miscellaneous Test 12/17/17 Details: HIV: Urine Culture: Sequential Screen: NIPT Screen: Results [id number] Office Urine Glucose Negative Last Edit by Robina Miranda on 03/13/18 12:14 Office Urine Protein Negative Last Edit by Robina Miranda on 03/13/18 12:14 Assessment AND Plan Problems 1. Cytology examination positive for high risk human papillomavirus (HPV) 11/2017 neg pap, positive HPV. Repeat 1 year 2. Rh negative status during in second trimester O09.892 rhogam as needed and 28 weeks 3. Supervision of high risk elderly multigravida in first trimester O09.521 PRR MISBAH 06/24/18 GRAHAM Arben Crawford Abner 4. 25 weeks gestation of Z3A.25 NIPT low risk. carrier and NTD screening declined. anatomy scan normal. Plan ACOG trimester education reviewed and updated. see problem list details for updated plan management information and see below for orders placed at this visit. GA appropriate handout given. Orders Orders: Coding Level of Care Code OB Routine Diagnoses Cytology examination positive for high risk human papillomavirus (HPV) Rh negative status during in second trimester O09.892 Trimester: second trimester Supervision of high risk elderly multigravida in first trimester O09.521 25 weeks gestation of Z3A.25 Weeks of gestation: 25 weeks 03/14/18 0556 <Electronically signed by Radha Das MD> Date Radha Das MD Cosigner Signature: Date (if applicable) CC: SODA CLERK OFFICE VISIT Observed: 02/13/2018 Status: F Source: ANNE REPORT 1:43 PM [facility] [address] [place] [address] OFFICE VISIT Date of Service: 02/13/18 MR#: [id number] Acct: [id number] Name: WAYNE VILLAR Rep #: [id number] : 1980 Provider: Radha Das MD Age/Sex: 37/F [place] [facility] [place]: Signed Intake Vital Signs02/13/18 Height 5 ft 3 in 02/13/18 Weight: 273 lb 6 oz 02/13/18 Body Mass Index (BMI) 48.4 02/13/18 Blood Pressure 119/77 Intake Visit Reasons: 20 weeks Emergency Operator Required: No Is patient in pain?: No Allergies No Known Allergies Allergy (Verified 02/13/18 13:23) Medications hydroxychloroquine 200 mg tablet 200 mg PO QDAY 11/13/17 [History Confirmed 02/13/18] vitamin,calcium,mptjdcze-jrbt-yrfpe acid tablet 1 tab PO QDAY 01/16/18 [History Confirmed 02/13/18] Last Menstral Period: 09/17/17 Zika: Zika virus screening: Negative : No PFSH PFSH Medical History Fibromyalgia (Acute) Rheumatoid arthritis (Acute) Surgical History H/O hernia repair (Acute) Hx of cholecystectomy (Acute) ankle surgery (Acute) Family History Father Hypertension Grandmother Hypoglycemia Social History Smoking Status: Never smoker alcohol intake: never substance use type: does not use caffeine: Yes what type of physical activity do you participate in: walking seatbelt use: always do you feel safe at home: Yes 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 DatName GA/WeeksOutcome Route [facility] LgAnesthesDel LocaProviderFOB e ht en ia tn Unknown [address] [id number] epidural [facility]iel [facility] porfirio d Womens l term Care HPI 20 weeks: Details: WAYNE VILLAR is a 37 year old who presents for routine OB visit. OB Visit MISBAH Calculator Estimated Delivery Date 06/24/18 Based on LMP (certain) 09/17/17 Current WG 21w 2d Number 1 Expected Delivery Route/Plan Specific Issue/Plans flu vaccine: no minichart given: [] tdap vaccine: [] rhogam: [] LARC form signed: [] labor support person: Derek pain management: [] cut cord/dad catch: [] : [] PP control planned: [] special requests: [] Initial Weight: Not Recorded Date Weight BP Urine PFHR FuHt Pres MCTX DilatioFetal SVisit NProvideComment rot ov n t ote r s EGA Ef Gluco faced se 12/03/1272 lb 125/86 [id number] Work in 8 e for br 11 own vag w 0d Negati inal sp ve otting X 2 day s. Had SAB 4 y ear ago . Anxi ous. C onfirme d recen t inter course prior t o spott ing. Visit Notes Visit Date: 02/13/18 no vb lof good fm no regular ctx Radha Das MD on 02/13/18 Visit Date: 01/16/18 no vb cramping Radha Das MD on 01/16/18 Visit Date: 12/17/17 Some N AND V last 2 days. Thinks GI virus. Better today. No VB, LOF. Wants NIPT JUAN Smalls on 12/17/17 Visit Date: 12/03/17 Work in for brown vaginal spotting X 2 days. Had SAB 4 year ago. Anxious. Confirmed recent intercourse prior to spotting. JUAN Smalls on 12/03/17 ACOG First Trimester First Trimester: Desire for , Alcohol, Tobacco Cessation, Illicit/Recreational Drug/Substance Use, Intimate Partner Violence, Barriers to care, Unstable Housing, Communication Barriers, Environmental/Work Hazards, Anticipated Course of Care, Toxoplasmosis Precations, Use of Any medications, Sexual activity, Exercise, Dental Care, Sauna/Hot tub use, Seat Belt use, Childbirth classes/Hospital facilities, , Travel, Indications for US and Screening for Aneuploidy Diagnostics Diagnostics Labs Blood Type A NEGATIVE 12/03/17 Antibody Screen NEGATIVE 12/03/17 Hct 38.9 % (37-47) 12/03/17 Hgb 13.4 g/dl (12.0-15.0) 12/03/17 Obstetrics Ultrasound 02/06/18 Rubella IgG Antibody 202.1 IU/mL 12/03/17 RPR NONREACTIVE (NONREACTIVE) 12/03/17 Hep Bs Antigen Negative (Negative) 12/03/17 Chlam trachomat DNA PCR Negative (Negative) 11/13/17 N.gonorrhoeae DNA (PCR) Negative (Negative) 11/13/17 Miscellaneous Test 12/17/17 Details: HIV: Urine Culture: Sequential Screen: NIPT Screen: Results [id number] Office Urine Glucose Negative Last Edit by Robina Miranda on 02/13/18 13:39 Office Urine Protein Trace Last Edit by Robina Miranda on 02/13/18 13:39 Assessment AND Plan Problems 1. Rh negative status during in second trimester O09.892 rhogam as needed and 28 weeks 2. Cytology examination positive for high risk human papillomavirus (HPV) 11/2017 neg pap, positive HPV. Repeat 1 year 3. Supervision of high risk elderly multigravida in first trimester O09.521 PRR MISBAH 06/24/18 PC Arben Crawford Lukane Plan ACOG trimester education reviewed and updated. see problem list details for updated plan management information and see below for orders placed at this visit. [place] appropriate handout given. Orders Orders: Coding Level of Care Code OB Routine Diagnoses Rh negative status during in second trimester O09.892 Trimester: second trimester Cytology examination positive for high risk human papillomavirus (HPV) Supervision of high risk elderly multigravida in first trimester O09.521 02/13/18 1343 <Electronically signed by Radha Das MD> Date Radha Das MD Cosign Signature: Date (if applicable) CC: OB ANATOMY SCAN Observed: 02/06/2018 Status: F Source: [place] 12:22 PM [facility] [place] [place] [address] OB Anatomy Scan MR#: [id number] Acct: [id number] Name: WAYNE VILLAR Rep #: [id number] : 1980 F 37 From: Florentin Salomon MD PCP: Care Physician, No Primary Status: REG CLI Study: OB Anatomy Scan Date of Exam: 02/06/18 Exam# [id number] Ordering Dr: Radha Das MD STUDY: SECOND AND THIRD TRIMESTER OBSTETRICAL ULTRASOUND REASON FOR EXAM: Female, 37 years old. Routine survey. LMP: Unknown. TECHNIQUE: Transabdominal PRIOR ULTRASOUND: None. FINDINGS: There is a single intrauterine fetus. The fetus is in a breech presentation. There is demonstrated cardiac activity with a heart rate of 147 bpm. There is a normal amniotic fluid volume. The largest amniotic fluid pocket measures 4.6 cm. The amniotic fluid index (ALEX) is 3.3 cm. The placenta is anterior in location and is not low lying. There are Grade 0 placental changes. The cervix measures 4.1 cm in length. The adnexal regions are not visualized. BIOMETRY: BPD: 4.7 cm: 20 weeks, 1 days HC: 17.3 cm: 19 weeks, 6 days AC: 15.2 cm: 20 weeks, 3 days FL: 3.1 cm: 19 weeks, 6 days age by current US: 19 weeks, 1 days. MISBAH by current US: June 25, 2018. Estimated weight: 330 grams, +/- 48 grams, 33 %. ANATOMY: Cranium: Normal lateral ventricles. Normal choroid plexus. Normal cerebellum. Normal cisterna magna. Normal face, nose and lips. Chest: Normal 4-chamber heart. Abdomen/Pelvis: Normal diaphragm. Normal stomach. Normal abdominal wall. Normal cord insertion. Normal 3 vessel cord. Normal kidneys. Normal bladder. Spine: Normal cervical spine. Normal thoracic spine. Normal lumbar spine. Normal sacrum. Extremities: Normal bilateral upper extremities. Normal bilateral lower extremities. US/OB Anatomy Scan IMPRESSION: Single intrauterine gestation 19 weeks 1 day with estimated due date June 25, 2018. No anomalies on routine anatomic survey. Electronically Signed: Florentin Salomon MD at 15:48 EDT , Service support , CC: No Primary Care Physician; Radha Das MD Restaurant Associate: Signed SODA CLERK OFFICE VISIT Observed: 01/16/2018 Status: F Source: ANNE REPORT 2:06 PM [facility] [address] [place] [address] OFFICE VISIT Date of Service: 01/16/18 MR#: [id number] Acct: [id number] Name: WAYNE IVLLAR Rep #: [id number] : 1980 Provider: Radha Das MD Age/Sex: 37/F [place] [facility] [place]: Signed Intake Vital Signs01/16/18 Height 5 ft 3 in 01/16/18 Weight: 270 lb 01/16/18 Body Mass Index (BMI) 47.8 01/16/18 Blood Pressure 120/79 Intake Visit Reasons: 16 weeks Chief Complaint: est ob Emergency Operator Required: No Is patient in pain?: No Allergies No Known Allergies Allergy (Verified 01/16/18 13:55) Medications hydroxychloroquine 200 mg tablet 200 mg PO QDAY 11/13/17 [History Confirmed 12/17/17] vitamin,calcium,narqyyqo-trpz-wgfpc acid tablet 1 tab PO QDAY 01/16/18 [History Confirmed 01/16/18] Last Menstral Period: 09/17/17 Zika: Zika virus screening: Negative : No PFSH PFSH Medical History Fibromyalgia (Acute) Rheumatoid arthritis (Acute) Surgical History H/O hernia repair (Acute) Hx of cholecystectomy (Acute) ankle surgery (Acute) Family History Father Hypertension Grandmother Hypoglycemia Social History Smoking Status: Never smoker alcohol intake: never substance use type: does not use caffeine: Yes what type of physical activity do you participate in: walking seatbelt use: always do you feel safe at home: Yes 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 DatName GA/WeeksOutcome Route Bth WeigInfant GLanikole LgAnesthesDel LocaProviderFOB e ht en th ia tn Unknown 2003 Mary live birNSVD [id number] epidural Mansfiel an th - ful porfirio d Womens l term Care HPI 16 weeks: Details: WAYNE VILLAR is a 37 year old who presents for routine OB visit. OB Visit MISBAH Calculator Estimated Delivery Date 06/24/18 Based on LMP (certain) 09/17/17 Current WG 17w 2d Number 1 Expected Delivery Route/Plan Specific Issue/Plans flu vaccine: no minichart given: [] tdap vaccine: [] rhogam: [] LARC form signed: [] labor support person: Derek pain management: [] cut cord/dad catch: [] : [] PP control planned: [] special requests: [] Initial Weight: Not Recorded Date Weight BP Urine PrFHR FuHt Pres MoCTX DilationFetal StVisit NoProviderComments E ot v te GA G Effac lucose ed Visit Notes Visit Date: 01/16/18 no vb cramping Radha Das MD on 01/16/18 Visit Date: 12/17/17 Some N AND V last 2 days. Thinks GI virus. Better today. No VB, LOF. Wants NIPT JUAN Smalls on 12/17/17 Visit Date: 12/03/17 Work in for brown vaginal spotting X 2 days. Had SAB 4 year ago. Anxious. Confirmed recent intercourse prior to spotting. JUAN Smalls on 12/03/17 ACOG First Trimester First Trimester: Desire for , Alcohol, Tobacco Cessation, Illicit/Recreational Drug/Substance Use, Intimate Partner Violence, Barriers to care, Unstable Housing, Communication Barriers, Environmental/Work Hazards, Anticipated Course of Care, Toxoplasmosis Precations, Use of Any medications, Sexual activity, Exercise, Dental Care, Sauna/Hot tub use, Seat Belt use, Childbirth classes/Hospital facilities, , Travel, Indications for US and Screening for Aneuploidy Diagnostics Diagnostics Labs Blood Type A NEGATIVE 12/03/17 Antibody Screen NEGATIVE 12/03/17 Hct 38.9 % (37-47) 12/03/17 Hgb 13.4 g/dl (12.0-15.0) 12/03/17 Rubella IgG Antibody 202.1 IU/mL 12/03/17 RPR NONREACTIVE (NONREACTIVE) 12/03/17 Hep Bs Antigen Negative (Negative) 12/03/17 Chlam trachomat DNA PCR Negative (Negative) 11/13/17 N.gonorrhoeae DNA (PCR) Negative (Negative) 11/13/17 Miscellaneous Test 12/17/17 Details: HIV: Urine Culture: Sequential Screen: NIPT Screen: Assessment AND Plan Problems 1. Rheumatoid arthritis of multiple sites with negative rheumatoid factor M06.[address] Joyce 2. Fibromyalgia M79.[address] Joyce 3. Supervision of high risk elderly multigravida in first trimester O09.521 PRR MISBAH 06/24/18 GRAHAM Crawford, Arben Abner 4. Rh negative status during in second trimester O09.892; Z67.91 rhogam as needed and 28 weeks 5. Cytology examination positive for high risk human papillomavirus (HPV) 11/2017 neg pap, positive HPV. Repeat 1 year 6. 17 weeks gestation of Z3A.17 Plan Orders placed: us ACOG trimester education reviewed and updated. see problem list details for updated plan management information. [place] appropriate handout given. Coding Level of Care Code OB Routine Diagnoses Rheumatoid arthritis of multiple sites with negative rheumatoid factor M06.09 Rheumatoid arthritis location: multiple sites Rheumatoid factor presence: without rheumatoid factor Fibromyalgia M79.7 Supervision of high risk elderly multigravida in first trimester O09.521 Rh negative status during in second trimester O09.892; Z67.91 Trimester: second trimester Cytology examination positive for high risk human papillomavirus (HPV) 17 weeks gestation of Z3A.17 01/16/18 1406 <Electronically signed by Radha Das MD> Date Radha Das MD Cosigner Signature: Date (if applicable) CC: MISCELLANEOUS LAB Collected: 12/17/2017 Status: F Source: ANNE PROCEDURE 4:20 PM [facility] Order Comment: Test(s) Ordered: INFORMASEQ WITH X Y ANALYSIS TYPE CODE TESTS RESULT OUT OF RANGE REFERENCE UNITS LAB L801.1541 Normal [facility] [place] [facility] TEST Result Comment: TEST RESULT UNITS REF INTERVAL informaSeq(R) with XY Analysis Results Report Screen Result No Aneuploidy Detected Fraction (%): 6.1 Chromosome 21 Result No Aneuploidy Detected Chromosome 21 Interpretation Consistent with diploid chromosome 21 Chromosome 18 Result No Aneuploidy Detected Chromosome 18 Interpretation Consistent with diploid chromosome 18 Chromosome 13 Result No Aneuploidy Detected Chromosome 13 Interpretation Consistent with diploid chromosome 13 Sex Chromosome Result No Aneuploidy Detected Sex Chromosome Interpretation Consistent with two sex chromosomes (XX -Female) Comments Correlation of these results with clinical findings is recommended. For definitive diagnostic testing, consider CVS or amniocentesis. Number 1 Gestational Age at Collection 13.1 weeks Race Weight 270 lbs Indication for Testing Not provided. Test Description Cell-free DNA is isolated from the sample and analyzed using Next Generation Sequencing platform. Test Performance The informaSeq test performance indicators for sensitivity, specificity, respectively, are as follows: combined for 21, 18, 13 trisomies 98.89%, 99.79%; trisomy 21 99.14%, 99.94%; trisomy 18 98.31%, 99.90%; trisomy 13 98.15%, 99.95%. Positive predictive value and negative predictive value for combined 21, 18, 13 trisomies are 0.9200, 0.9997 and for trisomy 21 are 0.9681, 0.9999. The sensitivity and specificity for sex chromosomes: monosomy X (95% and 99%), XX (97.60% and 99.20%), and XY (99.10% and 98.90%). The more rare sex aneuploidies (XXX, XXY, XYY) have limited data which precludes performance calculations. Test Limitations The informaSeq(SM) test is a aneuploidy assay used for screening chromosomes 13, 18, 21, X and Y. The test is validated in dow (13, 18, 21, X, Y) and twin (13, 18, 21) pregnancies with gestational ages of at least 10 weeks. This test is not intended to identify pregnancies at risk for neural tube defects or ventral wall defects. This test is not intended to be used for diagnostic purposes or as a stand-alone diagnostic test without confirmation by another medically established diagnostic product or procedure. In rare cases, the test results may reflect confined placental mosaicism or maternal aneuploidy, rather than the status. A negative test result does not exclude aneuploidy of chromosomes 13, 18, 21, sex chromosomes, or the presence of other chromosomes or abnormalities. Disclaimer Correlation of these results with all clinical findings is recommended. This test was developed and the performance characteristics determined by [facility]. It has not been cleared or approved by the U.S. Food and Drug Administration. References Chela S, Godfrey S, Whit H, et al. Clinical Laboratory Experiencewith Noninvasive Testing: Update on Clinically Relevant Metrics. ISPD 2014 floor installation mechanic Padmini DW, Russel GAMBOA, Donna KingD, et al. Genome-wide aneuploidy detection by maternal plasma DNA sequencing. Obstet Gynecol. 2012 November; 119(5):890-901. Janak T, Ovidio J, Chela S, de Leobardo E, Nanci RP, Juan F AJ. Initial clinical laboratory experience in noninvasive testing for aneuploidy from maternal plasma DNA samples. Prenat Diagn. 2013 [place]; 33(6):569-574. Denton AR, Gross SJ, Damian RG, et al. ACMG statement on noninvasive screening for aneuploidy. Rhoda Med. 2013 November; 15(5):395-398. Internal correlation data on file. [place] [employer] [employer] Committee on Genetics. Noninvasive testing for aneuploidy. Committee Opinion No. 545. Obstet Gynecol 2012 Jun; 120(6):6441-8680. [facility]. Analytical Validation of the verifi(R) Test: Enhanced Test Performance for Detecting Trisomies 21, 18, 13 and the Option for Classification of Sex Chromosome Status. [facility]: [facility]; 2012. Director Review Laboratory Directors: Mark Richards, PhD, [facility] Caitie Reyes, PhD, [facility] Lowell Leary, PhD, [facility] Pelon Monzon, PhD, [facility] Aylin Mckeon, PhD, [facility] Nisha Mcfadden, PhD, [facility] TESTING PERFORMED AT [facility]. ORIGINAL REPORT ON FILE IN LAB CONTAINS ADDITIONAL TEST SITE INFORMATION. Performed By: #### L801.1541 #### [facility] [address] [place], [address] SODA CLERK OFFICE VISIT Observed: 12/17/2017 Status: F Source: [place]NE REPORT 4:06 PM [facility] [address] [address] [place] [address] OFFICE VISIT Date of Service: 12/17/17 MR#: [id number] Acct: [id number] Name: WAYNE VILLAR Rep #: [id number] : 1980 Provider: TOMÁS Blakely Age/Sex: 37/F [place] [facility] [place]: Signed Intake Vital Signs12/17/17 Height 5 ft 3 in 12/17/17 Weight: 270 lb 8 oz 12/17/17 Body Mass Index (BMI) 47.9 12/17/17 Blood Pressure 129/78 Intake Visit Reasons: 12 WEEK OB Chief Complaint: est ob Emergency Operator Required: No Is patient in pain?: No Allergies No Known Allergies Allergy (Verified 12/17/17 15:40) Medications duloxetine 60 mg capsule,delayed release 60 mg PO QDAY 11/13/17 [History Confirmed 12/17/17] hydroxychloroquine 200 mg tablet 200 mg PO QDAY 11/13/17 [History Confirmed 12/17/17] Last Menstral Period: 09/17/17 Zika: Zika virus screening: Negative : No PFSH PFSH Medical History Fibromyalgia (Acute) Rheumatoid arthritis (Acute) Surgical History H/O hernia repair (Acute) Hx of cholecystectomy (Acute) ankle surgery (Acute) Family History Father Hypertension Grandmother Hypoglycemia Social History Smoking Status: Never smoker alcohol intake: never substance use type: does not use caffeine: Yes what type of physical activity do you participate in: walking seatbelt use: always do you feel safe at home: Yes 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 DatName GA/WeeksOutcome Route Bt WeigInfant GLabor LgAnesthesDel LocaProviderFOB e ht en ia tn Unknown 2003 [address] [id number] epidural Mansfiel an - [facility] porfirio d Womens l term Care HPI 12 WEEK OB: Details: WAYNE VILLAR is a 37 year old who presents for routine OB visit. OB Visit MISBAH Calculator Estimated Delivery Date 06/24/18 Based on LMP (certain) 09/17/17 Current WG 13w 0d Number 1 Expected Delivery Route/Plan Specific Issue/Plans flu vaccine: no minichart given: [] tdap vaccine: [] rhogam: [] LARC form signed: [] labor support person: Derek pain management: [] cut cord/dad catch: [] : [] PP control planned: [] special requests: [] Initial Weight: Not Recorded Date Weight BP Urine PFHR FuHt Pres MCTX DilatioFetal SVisit NProvideComment rot ov n t ote r s EGA Ef Gluco faced se 12/03/1272 lb 125/86 [id number] Work in 8 e for br 11 own vag w 0d Negati inal sp ve otting X 2 day s. Had SAB 4 y ear ago . Anxi ous. C onfirme d recen t inter course prior t o spott ing. Visit Notes Visit Date: 12/17/17 Some N AND V last 2 days. Thinks GI virus. Better today. No VB, LOF. Wants NIPT Veronica Blakely NP-C on 12/17/17 Visit Date: 12/03/17 Work in for brown vaginal spotting X 2 days. Had SAB 4 year ago. Anxious. Confirmed recent intercourse prior to spotting. JUAN Smalls on 12/03/17 ACOG First Trimester First Trimester: Desire for , Alcohol, Tobacco Cessation, Illicit/Recreational Drug/Substance Use, Intimate Partner Violence, Barriers to care, Unstable Housing, Communication Barriers, Environmental/Work Hazards, Anticipated Course of Care, Toxoplasmosis Precations, Use of Any medications, Sexual activity, Exercise, Dental Care, Sauna/Hot tub use, Seat Belt use, Childbirth classes/Hospital facilities, , Travel, Indications for US and Screening for Aneuploidy Diagnostics Diagnostics Labs Blood Type A NEGATIVE 12/03/17 Antibody Screen NEGATIVE 12/03/17 Hct 38.9 % (37-47) 12/03/17 Hgb 13.4 g/dl (12.0-15.0) 12/03/17 Rubella IgG Antibody 202.1 IU/mL 12/03/17 RPR NONREACTIVE (NONREACTIVE) 12/03/17 Hep Bs Antigen Negative (Negative) 12/03/17 Chlam trachomat DNA PCR Negative (Negative) 11/13/17 N.gonorrhoeae DNA (PCR) Negative (Negative) 11/13/17 Details: HIV: Urine Culture: Sequential Screen: NIPT Screen: Results [id number] Office Urine Glucose Negative Last Edit by Julee Santos on 12/17/17 15:41 Office Urine Protein Negative Last Edit by Julee Santos on 12/17/17 15:41 Assessment AND Plan Problems 1. Supervision of high risk elderly multigravida in first trimester O09.521 PRR MISBAH 06/24/18 Arben Menjivar Abner 2. Rh negative status during in first trimester O09.891; Z67.91 rhogam as needed and 28 weeks 3. Nausea/vomiting in O21.9 4. 13 weeks gestation of Z3A.13 Plan Orders placed: NIPT Brief US to confirm FHT 150s Declines medication for nausea Reviewed of labor precautions, movement/kick counts ACOG trimester education reviewed and updated See problem list details for updated plan of care Gestational age appropriate handout given RTO: 4 weeks Orders Orders: Coding Level of Care Code OB Routine Diagnoses Supervision of high risk elderly multigravida in first trimester O09.521 Rh negative status during in first trimester O09.891; Z67.91 Trimester: first trimester Nausea/vomiting in O21.9 13 weeks gestation of Z3A.13 12/17/17 1606 <Electronically signed by Veronica MARTINEZ> Date Veronica MARTINEZ Cosigner Signature: Date (if applicable) CC: SODA CLERK OFFICE VISIT Observed: 12/03/2017 Status: F Source: ANNE REPORT 11:44 AM [facility] [address] [place] [address] OFFICE VISIT Date of Service: 12/03/17 MR#: [id number] Acct: [id number] Name: WAYNE VILLAR Rep #: [id number] : 1980 Provider: TOMÁS Blakely Age/Sex: 37/F [place] [facility] [place]: Signed Intake Vital Signs12/03/17 Height 5 ft 3 in 12/03/17 Weight: 273 lb 12/03/17 Body Mass Index (BMI) 48.3 12/03/17 Blood Pressure 125/86 Intake Visit Reasons: 11 weeks-Brown discharge Emergency Operator Required: No Accompanied by: Is patient in pain?: No Allergies No Known Allergies Allergy (Verified 12/03/17 11:20) Medications duloxetine 60 mg capsule,delayed release 60 mg PO QDAY 11/13/17 [History Confirmed 12/03/17] hydroxychloroquine 200 mg tablet 200 mg PO QDAY 11/13/17 [History Confirmed 12/03/17] Last Menstral Period: 09/17/17 Zika: Zika virus screening: Negative : No PFSH PFSH Medical History Fibromyalgia (Acute) Rheumatoid arthritis (Acute) Surgical History H/O hernia repair (Acute) Hx of cholecystectomy (Acute) ankle surgery (Acute) Family History Father Hypertension Grandmother Hypoglycemia Social History Smoking Status: Never smoker alcohol intake: never substance use type: does not use caffeine: Yes what type of physical activity do you participate in: walking seatbelt use: always do you feel safe at home: Yes 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 DatName GA/WeeksOutcome Route [facility] WeigIncharlyt Parviz LgAnesthesDel LocaProviderFOB e ht en ia tn Unknown 2003 [address] [id number] epidural Mansfiel an th - ful porfirio d Womens l term Care HPI 11 weeks-[facility] discharge: Details: WAYNE VILLAR is a 37 year old who presents for routine OB visit. OB Visit MISBAH Calculator Estimated Delivery Date 06/24/18 Based on LMP (certain) 09/17/17 Current WG 11w 0d Number 1 Expected Delivery Route/Plan Specific Issue/Plans flu vaccine: [] minichart given: [] tdap vaccine: [] rhogam: [] LARC form signed: [] labor support person: [] pain management: [] cut cord/dad catch: [] : [] PP control planned: [] special requests: [] Initial Weight: Not Recorded Date Weight BP Urine PFHR FuHt Pres MCTX DilatioFetal SVisit NProvideComment rot ov n t ote r s EGA Ef Gluco faced se 12/03/1272 lb 125/86 [id number] Work in 8 e for br 11 own vag w 0d Negati inal sp ve otting X 2 day s. Had SAB 4 y ear ago . Anxi ous. C onfirme d recen t inter course prior t o spott ing. Visit Notes Visit Date: 12/03/17 Work in for brown vaginal spotting X 2 days. Had SAB 4 year ago. Anxious. Confirmed recent intercourse prior to spotting. Veronica Reddy, TEAMCENTER SOLUTION ARCHITECT-C on 12/03/17 ACOG First Trimester First Trimester: Desire for , Alcohol, Tobacco Cessation, Illicit/Recreational Drug/Substance Use, Intimate Partner Violence, Barriers to care, Unstable Housing, Communication Barriers, Environmental/Work Hazards, Anticipated Course of Care, Toxoplasmosis Precations, Use of Any medications, Sexual activity, Exercise, Dental Care, Sauna/Hot tub use, Seat Belt use, Childbirth classes/Hospital facilities, , Travel, Indications for US and Screening for Aneuploidy Diagnostics Diagnostics Labs Hct Pending 12/03/17 Hgb Pending 12/03/17 Hep Bs Antigen Pending 12/03/17 Chlam trachomat DNA PCR Negative (Negative) 11/13/17 N.gonorrhoeae DNA (PCR) Negative (Negative) 11/13/17 Blood Type Pending 12/03/17 Antibody Screen Pending 12/03/17 Rubella IgG Antibody Pending 12/03/17 RPR Pending 12/03/17 Details: HIV: Urine Culture: Sequential Screen: NIPT Screen: Results [id number] Office Urine Glucose Negative Last Edit by Robina Miranda on 12/03/17 11:21 Office Urine Protein Negative Last Edit by Robina Miranda on 12/03/17 11:21 Assessment AND Plan Problems 1. Supervision of high risk elderly multigravida in first trimester O09.521 MISBAH 06/24/18 Arben Menjivar Lukane Plan Brief US confirms active fetus with FHT 170s. Reassured. Will do labs today Information given NIPT to check insurance coverage. RTO routine OB 2 weeks Orders Orders: Coding Level of Care Code OB Routine Diagnoses Supervision of high risk elderly multigravida in first trimester O09.521 12/03/17 1144 <Electronically signed by Veronica MARTINEZ> Date Veronica MARTINEZ Cosigner Signature: Date (if applicable) CC: CBC W/DIFF, AUTOMATED Collected: 12/03/2017 Status: F Source: [place] 11:39 [place] [facility] [place] [facility] CODE TESTS RESULT OUT OF RANGE REFERENCE UNITS LAB L100.1000 4.4-11.0 K/mm3 Normal WBC 5.9 LAB L100.1200 4.2-5.4 M/mm3 Normal RBC 4.57 LAB L100.1300 12.0-15.0 g/dl Normal HGB 13.4 LAB L100.1400 37-47 % Normal HCT 38.9 LAB L100.1500 81-99 fL Normal MCV 85.1 LAB L100.1600 27.0-32.0 pg Normal MCH 29.3 LAB L100.1700 32-36 g/gl Normal MCHC 34.4 LAB L100.1810 11.6-14.6 % Normal RDW CV 13.4 LAB L100.1820 35.1-43.9 fl Normal RDW SD 41.4 LAB L100.1900 150-450 K/mm3 Normal PLT 198 LAB L100.2000 6.2-12.0 fl Normal MPV 9.1 LAB L100.2100 47-70 % Normal NEUT% 55.5 LAB L100.2200 19-41 % Normal LY% 34.4 LAB L100.2300 0-10 % Normal MONO% 8.1 LAB L100.2400 0-5 % Normal EO% 1.5 LAB L100.2500 0-1 % Normal BASO% 0.3 LAB L100.2550 0.0-0.9 % Normal IM GRAN % 0.200 Result Comment: IG% - Immature Granulocytes (promyelocytes, myelocytes and metamyelocytes) > 1% indicates that a LEFT SHIFT is Present. LAB L100.2620 2.0-7.7 X10 3/uL Normal Absolute Neut 3.3 LAB L100.2720 0.83-4.51 X10 3/ul Normal Absolute Lymph 2.04 Performed By: #### L100.0100, B101.7450 #### [facility] [address] [place], [place], [id number] TYPE AND SCREEN Collected: 12/03/2017 Status: F Source: [place] 11:39 AM [facility] Order Comment: Reason for Type AND Screen/Red Cells: TYPE CODE TESTS RESULT OUT OF RANGE REFERENCE UNITS LAB B10.0800 A Normal BLOOD TYPE GEL NEGATIVE LAB B100.4000 Normal Antibody NEGATIVE Screen Performed By: #### L100.0100, B101.7450 #### [facility] [address] [facility] [facility] [address] RUBELLA IGG Collected: 12/03/2017 Status: F Source: [place] 11:39 AM [facility] [place] TYPE CODE TESTS RESULT OUT OF RANGE REFERENCE UNITS LAB L509.4000 IU/mL Normal Rubella IgG 202.1 Result Comment: Antibody results Interpretation of Immune Status < 5 IU/ml Presumed Non-immune 5 - < 10 IU/ml Equivocal > or = 10 IU/ml Presumed Immune Performed By: #### L509.4000, L3890.6005, L700.5000 #### [facility] [address] [place] [address]. [place] [id number] #### L3100.0390 #### [facility] (refer to report for specific site) refer to report for address and phone number HIV - [facility] Collected: 12/03/2017 Status: F Source: [place] 11:39 AM [facility] [place] TYPE CODE TESTS RESULT OUT OF RANGE REFERENCE UNITS LAB L3890.6005 Nonreactive Normal HIV - [facility] Non-Reactive Performed By: #### L509.4000, L3890.6005, L700.5000 #### [facility] [facility]. [place], [place], [id number] #### L3100.0390 #### [facility] (refer to report for specific site) refer to report for address and phone number HEPATITIS B SURFACE Collected: 12/03/2017 Status: F Source: [place] AG 11:39 AM [facility] [place] TYPE CODE TESTS RESULT OUT OF RANGE REFERENCE UNITS LAB L3100.0400 Negative Normal HB Negative SURF AG Result Comment: Performed at: [facility] [id number] Data Specialist: Cade Meeks PhD, Phone: [phone] Performed By: #### L509.4000, L3890.6005, L700.5000 #### [facility] [address] [place], [place], [id number] #### L3100.0390 #### [facility] (refer to report for specific site) refer to report for address and phone number RAPID PLASMIN REAGIN Collected: 12/03/2017 Status: F Source: ANNE (RPR) 11:39 AM [facility] [place] TYPE CODE TESTS RESULT OUT OF REFERENCE UNITS RANGE LAB L700.5000 NONREACTIVE NONREACTIVE Normal RPR Performed By: #### L509.4000, L3890.6005, L700.5000 #### [facility] [place], [place], [id number] #### L3100.0390 #### [facility] (refer to report for specific site) refer to report for address and phone number CT/NG [facility] BY PCR Collected: 11/13/2017 Status: F Source: [place]NE 6:08 PM [facility] [place] TYPE CODE TESTS RESULT OUT OF RANGE REFERENCE UNITS LAB L8200.2100 Negative Normal Chlam Negative Trac PCR LAB L8200.2200 Negative Normal NG by Negative PCR Performed By: #### L8200.2000 #### [facility] [address] [place], [place] [address]. [place], [place], [id number] Observed: 11/13/2017 Status: F Source: ANNE CULTURE, URINE 6:08 PM [facility] Urine Culture Below infection level. Probable skin contaminants. ORGANISM 1: Mixed Gram Positive Organisms [place] Count 1000-10,000 Performed By: #### M100.0650 #### [facility] [address] [place], [place] [address]. [place], [place], [id number] SODA CLERK OFFICE VISIT Observed: 11/13/2017 Status: F Source: [place]NE REPORT 9:58 AM [facility] [place] [facility] [place] [address] [facility] [facility] [place], [place] [address] OFFICE VISIT Date of Service: 11/13/17 MR#: [id number] Acct: [id number] Name: WAYNE VILLAR Rep #: [id number] : 1980 Provider: Radha Das MD Age/Sex: 37/F [facility] Status: Signed Intake Vital Signs11/13/17 Height 5 ft 3 in 11/13/17 Weight: 276 lb 2 oz 11/13/17 Body Mass Index (BMI) 48.9 11/13/17 Blood Pressure 120/82 Intake Visit Reasons: New OB LMP 09/17/17 Chief Complaint: NEW OB Emergency Operator Required: No Is patient in pain?: No Allergies No Known Allergies Allergy (Unverified 11/13/17 09:15) Medications duloxetine 60 mg capsule,delayed release 60 mg PO QDAY 11/13/17 [History Confirmed 11/13/17] hydroxychloroquine 200 mg tablet 200 mg PO QDAY 11/13/17 [History Confirmed 11/13/17] Last Menstral Period: 09/17/17 Zika: Zika virus screening: Negative : No PFSH PFSH Medical History Fibromyalgia (Acute) Rheumatoid arthritis (Acute) Surgical History H/O hernia repair (Acute) Hx of cholecystectomy (Acute) ankle surgery (Acute) Family History Father Hypertension Grandmother Hypoglycemia Social History Smoking Status: Never smoker alcohol intake: never substance use type: does not use caffeine: Yes what type of physical activity do you participate in: walking seatbelt use: always do you feel safe at home: Yes 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 DatName GA/WeeksOutcome [facility] LgAnesthesDel LocaProviderFOB e ht en ia tn Unknown 2003 [address] [id number] epidural Mansfiel an th - ful porfirio d Womens l term Care HPI New OB LMP 09/17/17: Details: WAYNE VILLAR is a 37 year old who presents for New OB visit. OB Visit MISBAH Calculator Estimated Delivery Date 06/24/18 Based on LMP (certain) 09/17/17 Current WG 8w 1d Number 1 Comments: US consistent with LMP fht 150 Expected Delivery Route/Plan Specific Issue/Plans flu vaccine: [] minichart given: [] tdap vaccine: [] rhogam: [] LARC form signed: [] labor support person: [] pain management: [] cut cord/dad catch: [] : [] PP control planned: [] special requests: [] Menstrual History Last Menstral Period: 09/17/17 Reported LMP: definite Normal amount/duration: Yes On hormonal BC at conception: No Antepartum Record Genetic Screening: Congenital Heart Defect: Other, Neural Tube Defect: Other, Hemoglobinopathy Or Carrier: Other, Cystic Fibrosis: Other, Chromosome Abnormality: Other, Juvenal-Sachs: Other, Hemophilia: Other, Intellectual Disability/Autism: Other, Recurrent Loss/Stillbirth: Other, Other Structural Defect: Other, Other Genetic Disease: Other, Maternal Metabolic Disorder: Other Infection History: Live with someone with TB or Exposed to TB: No, Patient or Partner has history of Genital Herpes: No, Rash or Viral illness since last mentrual period: No, Prior GBS-Infected child: No, History of STD: No, HIV Infection: No, History of Hepatitis: No, Recent travel outside of [place]: No, Concern for Hep exposure: No, Varicella immune: Yes Medical History Medical History: Positive: Auto-immune disorder, Negative: Diabetes, Hypertension, Heart disease, Kidney disease/UTI, Neurologic/epilepsy, Psychiatric, Depression/ depression, Hepatitis/liver disease, Varicosities/phlebitis, Thyroid dysfunction, Trauma/domestic violence, History of blood transfusions, D (Rh) Sensitized, Pulmonary (e.g.,TB,Asthma), Seasonal allergies, Drug/latex allergies/reactions, Breast, Commissions Specialist surgery, Operations/hospitalizations, Anesthetic complications, History of abnormal pap, Uterine anomaly/lizet, Infertility, Anti-retroviral treatment, Relevant family history, Other ACOG First Trimester First Trimester: Desire for , Alcohol, Tobacco Cessation, Illicit/Recreational Drug/Substance Use, Intimate Partner Violence, Barriers to care, Unstable Housing, Communication Barriers, Environmental/Work Hazards, Anticipated Course of Care, Nurtrition and weight gain, Toxoplasmosis Precations, Use of Any medications, Sexual activity, Exercise, Dental Care, Sauna/Hot tub use, Seat Belt use, Childbirth classes/Hospital facilities, , Travel, Indications for US and Screening for Aneuploidy ROS Const Denies fever(s), Reports system reviewed and no additional complaints, except as docu, Reports fatigue Eyes Reports system reviewed and no additional complaints, except as docu ENT Reports system reviewed and no additional complaints, except as docu Card Denies chest pain, Denies shortness of breath Resp Reports system reviewed and no additional complaints, except as docu, Denies shortness of breath, Denies cough GI Reports nausea, Denies abdominal pain Reports system reviewed and no additional complaints, except as docu Musc Reports system reviewed and no additional complaints, except as docu Skin/Breast Reports system reviewed and no additional complaints, except as docu Neuro Yes system reviewed and no additional complaints, except as docu Psych Reports system reviewed and no additional complaints, except as docu Endo Reports fatigue, Reports system reviewed and no additional complaints, except as docu Exam Const General: healthy appearing, comfortable, no acute distress Orientation: alert [facility] Head: normal to inspection, atraumatic, normocephalic Ears: external ears normal, hearing grossly normal bilaterally Nose: nares normal, external nose normal Mouth: oral mucosae normal Teeth and gingiva: dentition normal Eyes General: appearance normal, both eyes and all related structures Neck Neck: no lymphadenopathy, supple, normal visual inspection Thyroid: thyroid normal Chest Chest palpation AND inspection: normal inspection of the chest Breast inspection: normal inspection of the breasts, normal inspection of the axillae Breast palpation: normal palpation of the breasts, normal palpation of the axillae Resp Effort AND Inspection: normal respiratory effort GI Inspection: normal to inspection Palpation: soft, no hepatosplenomegaly General: bladder normal to palpation External Female Exam: normal external appearance, normal appearance of the urethra Urethra: normal appearance of the urethra Speculum Exam - Vagina: normal appearance of the vagina, normal vaginal discharge Speculum Exam - Cervix: normal appearance of the cervix Bimanual Exam- Vagina AND Uterus: bladder normal to palpation, normal bimanual exam, uterus non-tender, other Bimanual Exam- Adnexa, other: adnexae non-tender Skin General: no rashes or lesions noted Neuro Motor: muscle tone normal throughout, no movement abnormalities noted Extrem General: normal to inspection, full ROM Assessment AND Plan Problems 1. Supervision of high risk elderly multigravida in first trimester O09.521 MISBAH 06/24/18 Arben Menjivar Abner 2. Rheumatoid arthritis of multiple sites with negative rheumatoid factor M06.[address] Joyce 3. Fibromyalgia M79.[address] Joyce Plan Patient oriented to practice and discussed care expectations and screenings. ACOG book offered to patient. labs and 19-20 week anatomy ultrasound ordered. Genetic screening offered to patient and patient chose: considering NIPT Supplemental Info ACOG book given and patient encouraged to read about nutrition, exercise, weight gain, and food avoidance in . Coding Level of Care Code OB Routine Diagnoses Supervision of high risk elderly multigravida in first trimester O09.521 Rheumatoid arthritis of multiple sites with negative rheumatoid factor M06.09 Rheumatoid arthritis location: multiple sites Rheumatoid factor presence: without rheumatoid factor Fibromyalgia M79.7 11/13/17 0958 <Electronically signed by Radha Das MD> Date Radha Das MD Cosigner Signature: Date (if applicable) CC: PAP IG HPV APTIMA Collected: 11/13/2017 Status: F Source: [place] 16/18,45 9:30 AM [facility] Order Comment: CYTOLOGY INFORMATION: - CLINICAL INFORMATION: HYSTERECTOMY - DATE LMP/MENOPAUSE: LMP - COLLECTION VIAL: Thin Prep Vial - CURRICULUM COUNSELOR SOURCE: CERVICAL - COLLECTION TECHNIQUE: CX BROOM ONLY Specimen Comment: [id number] Specimen Comment: No. of containers..01 ThinPrep Vial TYPE CODE TESTS RESULT OUT OF RANGE REFERENCE UNITS LAB L7400.0800 . Normal DIAGN Comment Result Comment: NEGATIVE FOR INTRAEPITHELIAL LESION AND MALIGNANCY. LAB L7400.0900 . Normal ADEQ Comment Result Comment: Satisfactory for evaluation. Endocervical and/or squamous metaplastic cells (endocervical component) are present. LAB L7400.1400 . Normal PERFORM Comment Result Comment: Holden Cronin, Program Checker (ASCP) LAB L7400.2575 . Normal TEST METHOD Comment Result Comment: This liquid based ThinPrep(R) pap test was screened with the use of an image guided system. LAB L7400.2600 . Normal . COMM LAB L7400.2700 . Normal PAPSMR Comment Result Comment: The Pap smear is a screening test designed to aid in the detection of premalignant and malignant conditions of the uterine cervix. It is not a diagnostic procedure and should not be used as the sole means of detecting cervical cancer. Both false-positive and false-negative reports do occur. LAB L7400.2760 Negative High HPV APTIMA, HR Positive Result Comment: This test detects fourteen high-risk HPV types (16/18/31/33/35/39/45/ 51/52/56/58/59/66/68) without differentiation. LAB L7400.2940 Negative Normal HPV Genotype Negative 16 LAB L7400.2945 Negative Normal HPV Sadie 18,45 Negative Result Comment: Performed at: - [facility] [address] [id number] Data Specialist: Amanda Gomes MD, Phone: [phone] Performed at: =G - [facility] [id number] Data Specialist: Amanda Gomes MD, Phone: [phone] Performed By: #### L7400.0280 #### [facility] (refer to report for specific site) refer to report for address and phone number CBC W/ AUTO DIFF Collected: 09/26/2017 Status: F Source: [facility] 5:12 PM [facility] REPOSITORY TYPE CODE TESTS RESULT OUT OF RANGE REFERENCE UNITS LAB [id number](L 3.6-11.0 E3/mcL OINC) Normal WBC 7.5 LAB 11462015(L 3.90-5.40 E6/mcL OINC) Normal RBC 4.83 LAB 74408614(L 12.0-16.0 G/DL OINC) Normal Hgb 14.2 LAB 78529534(L 36.0-48.0 % OINC) Normal Hct 41.5 LAB 88481973(L 11.5-14.5 % OINC) Normal RDW 13.7 LAB 63855381(L 27.0-31.0 pg OINC) Normal MCH 29.3 LAB 23320577(L 33.0-37.0 G/DL OINC) Normal MCHC 34.2 LAB 97552895(L 78.0-100.0 fL OINC) Normal MCV 85.8 LAB 67313003(L 7.4-11.0 fL OINC) Low MPV 7.3 LAB 96821277(L 130-400 E3/mcL OINC) Normal Platelet 275 Performed By: #### [id number] #### [place] [facility] [place] [address] AUTO DIFF Collected: 09/26/2017 Status: F Source: [facility] 5:12 PM [facility] REPOSITORY Order Comment: Order Added by Discern Expert. TYPE CODE TESTS RESULT OUT OF RANGE REFERENCE UNITS LAB 21200909(L 37.0-75.0 % OINC) Normal Neutro Auto 55.4 LAB 30168911(L 20.0-55.0 % OINC) Normal Lymph Auto 34.4 LAB 94332414(L 0.0-10.0 % OINC) Normal Lander Auto 7.5 LAB 21939125(L 0.0-11.0 % OINC) Normal Eos Auto 2.3 LAB 00579331(L 0.0-2.0 % OINC) Normal Basophil Auto 0.4 LAB 61199930(L 1.4-6.5 E3/mcL OINC) Normal Neutro 4.2 Absolute LAB 55515632(L 1.2-3.4 E3/mcL OINC) Normal Lymph Absolute 2.6 LAB 70310252(L 0.0-0.7 E3/mcL OINC) Normal Lander Absolute 0.6 LAB 29350469(L 0.0-0.7 E3/mcL OINC) Normal Eos Absolute 0.2 LAB 62551162(L 0.0-0.2 E3/mcL OINC) Normal Basophil 0.0 Absolute Performed By: #### [id number] #### [place] [facility] [place] [address] LAB MISCELLANEOUS Collected: 09/26/2017 Status: F Source: [facility] 5:12 [facility] REPOSITORY TYPE CODE TESTS RESULT OUT OF RANGE REFERENCE UNITS LAB 99220763(LO INC) Normal Test Name quant TB gold LAB 86591498(LO INC) Normal Status See Ref Lab Report Performed By: #### [id number] #### [place]O Send Outs Subsection [address] [place] [address] SED RATE AUTOMATED Collected: 09/26/2017 Status: F Source: [facility] 5:[address] [facility] REPOSITORY TYPE CODE TESTS RESULT OUT OF RANGE REFERENCE UNITS LAB 33517869(L mm/hr OINC) Sed Normal Rate Automated 13 Result Comment: AGE-SPECIFIC REFERENCE RANGES FOR SEDIMENTATION RATE AUTOMATED REFERENCE RANGE - MM/HR AGE MEN WOMEN 0-2 0-2 - PUBERTY 3-13 3-13 PUBERTY - 50 YRS 0-15 0-20 > 50 YRS 0-20 0-30 Performed By: #### [id number] #### [place]O Hematology Manual Subsection [facility] [place] [id number] CMP Collected: 09/26/2017 Status: F Source: [facility] 5:12 PM [facility] REPOSITORY TYPE CODE TESTS RESULT OUT OF RANGE REFERENCE UNITS LAB 50636037(L 70-99 mg/dL OINC) Glucose Normal Lvl 79 LAB 14915423(L 7-18 mg/dL OINC) BUN Normal 11 LAB 2806454(LO 0.6-1.3 mg/dL INC) Normal Creatinine 0.6 LAB 65721873(L 8.4-10.2 mg/dL OINC) Calcium Normal Lvl 9.3 LAB 36525568(L 136-145 mEq/L OINC) Sodium Normal Lvl 140 LAB 98440037(L 3.5-5.1 mEq/L OINC) Normal Potassium Lvl 3.6 LAB 56801868(L 98-107 mEq/L OINC) Chloride Normal 106 LAB 81086103(L 24.0-30.0 mEq/L OINC) CO2 Normal 27.2 LAB 94703963(L 42-121 Int._Unit/ OINC) L Alk Phos Normal 79 LAB 86060285(L 0.2-1.0 mg/dL OINC) High Bili Total 1.1 LAB 42941198(L 3.2-5.0 G/DL OINC) Albumin Normal Lvl 4.4 LAB 85773830(L 6.4-8.3 G/DL OINC) Total Normal Protein 7.6 LAB 38544904(L 10-40 Int._Unit/ OINC) High L ALT 69 LAB 74093329(L 10-42 Int._Unit/ OINC) L AST Normal 42 LAB 69861498(L 5.4-30.0 ratio OINC) Normal BUN/Creat Ratio 18.3 LAB 54671595(L 2.0-4.0 G/DL OINC) Globulin Normal 3.2 LAB 72213306(L 1.1-1.9 ratio OINC) A/G Normal Ratio 1.4 Performed By: #### [id number] #### [place] [facility] [facility] [place] [address] EGFR Collected: 09/26/2017 Status: F Source: [facility] 5:12 PM [facility] REPOSITORY Order Comment: Order added by Discern Expert. TYPE CODE TESTS RESULT OUT OF RANGE REFERENCE UNITS LAB 24752518(LO mL/min/1.73 INC) m2 Normal eGFR >60 LAB 35159914(LO mL/min/1.73 INC) m2 Normal eGFR AA >60 Performed By: #### 84556491 #### [place] [employer] [address] [place] [address] CRP Collected: 09/26/2017 Status: F Source: [facility] 5:12 PM [facility] REPOSITORY TYPE CODE TESTS RESULT OUT OF RANGE REFERENCE UNITS LAB 20703262(LO 0.00-0.75 mg/dL INC) Normal CRP <0.50 Performed By: #### 7342510 #### [place] [facility] [place] [id number] ALLERGIES ALLERGIES DATE TYPE / CODE NAME / CODE REACTION SEVERITY SOURCE 06/21/2018 Drug No Known Unknown [employer] [facility] Allergy/416 Allergies/O09441 Hospital 167657(SNOM 0388(RXNORM) Repository ED CT) Drug/670298 No Known Buddhist 003(SNOMED Allergies [facility] CT) System Repository ENCOUNTERS ENCOUNTERS ADMIT/DISCHARGE ACCOUNT ADMITTING ENCOUNTER LOCATION SOURCE NUMBER CLASS 06/21/2018/06/24/20 [id number] [facility] Inpatient Anne Garcia Encounter [facility] ing:WPRoom: Repository HA870Ivq: 1 06/21/2018 [id number] [place] Ambulatory BMSBuilding:Dion Garcia MS.CF.[facility] Repository 06/21/2018 [id number] Marcanth[place], Ambulatory [facility] MS.CF.[facility] Repository 06/21/2018 [id number] Marccastilloony, Ambulatory BMSBuilding:Dion Garcia MS.CF.[facility] Repository 06/21/2018 [id number] Marcanthony, Ambulatory BMSBuilding:Dion Garcia MS.CF.[facility] Repository 06/17/2018/06/17/20 [id number] Ambulatory BMSBuilding:B Anne 18 MS.[facility] Repository 06/12/2018/06/12/20 [id number] Ambulatory BMSBuilding:B Anne 18 MS.[facility] Repository 06/08/2018 [id number] Ambulatory [facility] HospitalBuild Hospital ing:US Repository 06/05/2018/06/05/20 [id number] Ambulatory BMSBuilding:B Anne 18 MS.[facility] Repository 06/01/2018 [id number] Ambulatory [facility] HospitalBuild Hospital ing:[facility] Repository 05/27/2018/05/27/20 [id number] Ambulatory BMSBuilding:B [employer] 18 MS.[facility] Repository 05/22/2018/05/22/20 [id number] Ambulatory BMSBuilding:B [employer] 18 MS.[facility] Repository 05/15/2018/05/15/20 [id number] Ambulatory BMSBuilding:B Anne 18 MS.[facility] Repository 05/14/2018 [id number] Ambulatory BMSBuilding:B Anne MS.CF.[facility] Hospital Repository 05/14/2018 [id number] Ambulatory [facility] HospitalBuild Hospital ing:[facility] Repository 05/07/2018/05/07/20 [id number] Ambulatory BMSBuilding:B [employer] 18 MS.[facility] Repository 05/01/2018 [id number] Ambulatory [facility] HospitalBuild Hospital ing:US Repository 04/30/2018/04/30/20 [id number] Ambulatory BMSBuilding:B Anne 18 MS.[facility] Repository 04/17/2018/04/17/20 [id number] Ambulatory BMSBuilding:B Anne 18 MS.[facility] Repository 04/03/2018 [id number] [facility] Repository 04/03/2018/04/03/20 [id number] Ambulatory BMSBuilding:B Anne 18 MS.[facility] Repository 03/13/2018/03/13/20 [id number] Ambulatory BMSBuilding:B [employer] 18 MS.[facility] Repository 02/13/2018/02/14/20 [id number] Ambulatory BMSBuilding:B Anne 18 MS.[facility] Repository 02/06/2018 [id number] Ambulatory [facility] Hospitalild Hospital ing:OPUS Repository 01/16/2018/01/17/20 [id number] Ambulatory BMSBuilding:B Anne 18 MS.[facility] Repository 01/09/2018 [id number] Ambulatory BMSBuilding:[place] [employer] MS.[facility] Repository 12/17/2017 [id number] Ambulatory [facility] HospitalBuild Hospital ing:LAB Repository 12/17/2017/12/18/19 [id number] Ambulatory BMSBuilding:B [employer] 18 MS.[facility] Repository 12/12/2017 [id number] Ambulatory BMSBuilding:B Anne MS.[facility] Repository 12/03/2017 [id number] Ambulatory [facility] HospitalBuild Hospital ing:POLAB3 Repository 12/03/2017/12/04/19 [id number] Ambulatory BMSBuilding:B [employer] 18 MS.[facility] Repository 11/13/2017 [id number] Ambulatory [facility] HospitalBuild Hospital ing:[facility] Repository 11/13/2017/11/14/19 [id number] Ambulatory BMSBuilding:B Anne 18 MS.[facility] Repository 09/26/2017/09/27/19 [id number] [place], Ambulatory [address] ing:SH.[facility] Repository PAYERS PAYERS ENCOUNTER GUARANTOR PAYER SUBSCRIBER SOURCE 06/21/2018 FORREST [id number] Primary FORREST HICKSDOB: [employer] [place] [address], Insurance:ANTHEMPolic [id number] [place] [address]Frj: y Number: [facility] [id number] Repository () romeo Date:2057-74-34QY [address]YMTVN, [place] [address]IN: 06/21/2018 Secondary NOT GIVENUNK [employer] Insurance:SELF PAY Community [facility] Hospital Number: Effective Repository Date:2018-06-21 06/21/2018 FORREST [id number] Primary FORREST HICKSDOB: [employer] [address], Insurance:ANTHEMPolic [id number] [facility] [place] [address]Cks: y Number: [facility] [id number] Repository () romeo Date:8488-96-46EW [address]EKAHFEJ, [place] [address]AB: 06/21/2018 Secondary NOT GIVENUNK [employer] Insurance:SELF PAY Community [facility] Hospital Number: Effective Repository Date:2018-06-21 06/21/2018 FORREST [id number] Primary FORREST HICKSDOB: [place] [address], Insurance:ANTHEMPolic [id number] [facility] [place] [address]Emr: y Number: [facility] [id number] Repository () romeo Date:8445-37-35MV [address]VEQGPFF, [place] [address]TI: 06/21/2018 Secondary NOT GIVENUNK [employer] Insurance:SELF PAY Community [facility] Hospital Number: Effective Repository Date:2018-06-21 06/21/2018 FORREST [id number] Primary FORREST HICKSDOB: [place] [address], Insurance:ANTHEMPolic [id number] [facility] [place] [address]Cmo: y Number: [facility] [id number] Repository () romeo Date:3137-98-65CX [address]JUNAOV, [place] [address]YM: 06/21/2018 Secondary NOT GIVENUNK [employer] Insurance:SELF PAY Community [facility] Hospital Number: Effective Repository Date:2018-06-21 06/21/2018 FORREST [id number] Primary FORREST HICKSDOB: [employer] [address], Insurance:ANTHEMPolic [id number] [facility] [place] [address]Qgs: y Number: [facility] [id number] Repository () romeo Date:0235-01-97MR [address]UDXKAFL, [place] [address]TY: 06/21/2018 Secondary NOT GIVENUNK [employer] Insurance:SELF PAY Community [facility] Hospital Number: Effective Repository Date:2018-06-21 06/17/2018 FORREST [id number] Primary FORREST HICKSDOB: [employer] [address], Insurance:ANTHEMPolic [id number] [facility] [place] [address]Rxe: y Number: [facility] [id number] Repository () romeo Date:8069-64-94QF [address]HJVLHVB, [place] [address]SK: 06/17/2018 Secondary NOT GIVENUNK [employer] Insurance:SELF PAY Community [facility] Hospital Number: Effective Repository Date:2018-06-17 06/12/2018 FORREST [id number] Primary FORREST HICKSDOB: [place] [address], Insurance:ANTHEMPolic [id number] [facility] [place] [address]Yct: y Number: [facility] [id number] Repository () romeo Date:6101-82-44OL [address]APYMAZM, [place] [address]UG: 06/12/2018 Secondary NOT GIVENUNK [employer] Insurance:SELF PAY Community [facility] Hospital Number: Effective Repository Date:2018-04-30 06/08/2018 FORREST [id number] Primary FORREST HICKSDOB: [employer] [address], Insurance:ANTHEMPolic [id number] [facility] [place] [address]Hjg: y Number: [facility] [id number] Repository () romeo Date:2249-97-38SE [address]ZSBNPI[address] NARVAEZ [address]I: 06/08/2018 Secondary NOT GIVENUNK [employer] Insurance:SELF PAY [facility] Hospital Number: Effective Repository Date:2018-06-05 06/05/2018 FORRESTTAJ [id number] Primary FORREST HICKSDOB: [employer] HELTMAN Insurance:ANTHEMPolic [id number] [place] Number[place] Hospital [address]Bto: (419) [id number] Repository [phone] () [place]o Date:3438-25-47JZ [address] [place] [address]BJ: 06/05/2018 Secondary NOT GIVENUNK Anne Insurance:SELF PAY [facility] Hospital Number: Effective Repository Date:2018-04-30 06/01/2018 FORREST [id number] Primary FORREST HICKSDOB: Anne HELTM[place] Insurance:ANTHEMPolic [id number] [facility] [place] Number: Hospital [address]Gvo: (419) [id number] Repository [phone] () romeo Date:7159-15-61EA [address] [place] [address]KL: 06/01/2018 Secondary NOT GIVENUNK [employer] Insurance:SELF PAY [facility] Hospital Number: Effective Repository Date:2018-06-01 05/27/2018 FORREST [id number] Primary FORREST HICKSDOB: [employer] HELTMAN Insurance:ANTHEMPolic [id number] [facility] [place] Number: Hospital [address]Noj: (419) [id number] Repository [phone] () romeo Date:6434-59-53JE [address] [place] [address]LU: 05/27/2018 Secondary NOT GIVENUNK [employer] Insurance:SELF PAY [facility] Hospital Number: Effective Repository Date:2018-04-30 05/22/2018 FORREST [id number] Primary FORREST HICKSDOB: [employer] HELTMAN Insurance:ANTHEMPolic [id number] [facility] [place] [facility] Number[facility] Hospital [address]Vbb: (419) [id number] Repository [phone] () romeo Date:5158-18-26OK [address] [place] [address]ON: 05/22/2018 Secondary NOT GIVENUNK [employer] Insurance:SELF PAY Community [facility] Hospital Number: Effective Repository Date:2018-05-05 05/15/2018 FORREST [id number] Primary FORREST HICKSDOB: [employer] HELTMAN Insurance:ANTHEMPolic [id number] [place] Number: [place] [address]Tel: (419) [id number] Repository [phone] () romeo Date:3104-29-34DF [address] [place] [address]KW: 05/15/2018 Secondary NOT GIVENUNK Anne Insurance:SELF PAY [facility] Hospital Number: Effective Repository Date:2018-04-30 05/14/2018 FORREST [id number] Primary FORREST HICKSDOB: [employer] HELTMAN Insurance:ANTHEMPolic [id number] [facility] [place] Number: [place] [address]Tel: (419) [id number] Repository [phone] () [place]o Date:6975-83-37QQ [address] [place] [address]RU: 05/14/2018 Secondary NOT GIVENUNK [place] Insurance:SELF PAY Community [facility] Hospital Number: Effective Repository Date:2018-05-14 05/14/2018 FORREST [id number] Primary FORREST HICKSDOB: [place] Insurance:ANTHEMPolic [id number] [facility] [place] Number: Hospital [address]Qwt: (419) [id number] Repository [phone] () rome[place] Date:5761-13-89GV [address] [place] [address] 218[address]JO: 05/14/2018 Secondary NOT GIVENUNK [place] Insurance:SELF PAY Community [facility] Hospital Number: Effective Repository Date:2018-05-13 05/07/2018 FORREST [id number] Primary FORREST HICKSDOB: [place] Insurance:ANTHEMPolic [id number] [facility] [place] Number: Hospital [address]Bnn: (419) [id number] Repository [phone] () romeo Date:6351-63-74RG [address]SIGAQIENY NARVAEZ [address]PV: 05/07/2018 Secondary NOT GIVENUNK [place] Insurance:SELF PAY [facility] Hospital Number: Effective Repository Date:2018-05-05 05/01/2018 FORREST [id number] Primary FORREST HICKSDOB: [place] Insurance:ANTHEMPolic [id number] [facility] [place] Number: Hospital [address]Iyx: (419) [id number] Repository [phone] () romeo Date:6429-19-73PX [address]COMFPDR, [place] [address]HX: 05/01/2018 Secondary NOT GIVENUNK Anne Insurance:SELF PAY Community [facility] Hospital Number: Effective Repository Date:2018-04-30 04/30/2018 FORREST [id number] Primary FORREST HICKSDOB: [place] Insurance:ANTHEMPolic [id number] [facility] [place] Number: [place] [address]Tel: (419) [id number] Repository [phone] () romeo Date:8786-95-20QR [address]SVONCDV, [place] [address]ZW: 04/30/2018 Secondary NOT GIVENUNK Anne Insurance:SELF PAY [facility] Hospital Number: Effective Repository Date:2018-04-30 04/17/2018 FORREST [id number] Primary FORREST HICKSDOB: [place] Insurance:ANTHEMPolic [id number] [place] [facility] Number: Hospital [address]Rgj: (419) [id number] Repository [phone] () romeo Date:0953-84-08DS [address]PBKI, [place] [address]BS: 04/17/2018 Secondary NOT GIVENUNK Anne Insurance:SELF PAY Community [facility] Hospital Number: Effective Repository Date:2018-04-17 04/03/2018 FORREST [id number] Primary FORREST HICKSDOB: [place] Insurance:ANTHEMPolic [id number] [place] Number[place] Hospital [address]Hjy: (419) [id number] Repository [phone] () romeo Date:7159-17-74VA [address] [place] [address]BA: 04/03/2018 Secondary NOT GIVENUNK Anne Insurance:SELF PAY [facility] Hospital Number: Effective Repository Date:2018-04-03 04/03/2018 FORRESTTAJ [id number] Primary FORREST HICKSDOB: [place] Insurance:ANTHEMPolic [id number] [facility] [place] Number: Hospital [address]Unw: (419) [id number] Repository [phone] () romeo Date:2061-00-92LN [address]JBBCV[address] [place] [address]VO: 04/03/2018 Secondary NOT GIVENUNK Anne Insurance:SELF PAY Community [facility] Hospital Number: Effective Repository Date:2018-03-27 03/13/2018 FORRESTTAJ [id number] Primary FORREST HICKSDOB: Anne [place] Insurance:ANTHEMPolic [id number] [facility] [place] Number: Hospital [id number]: (419) [id number] Repository [phone] () romeo Date:5720-08-57NB [address]DXUERVC, [place] [address]CL: 03/13/2018 Secondary NOT GIVENUNK [employer] Insurance:SELF PAY Community [facility] Hospital Number: Effective Repository Date:2017-12-17 02/13/2018 FORRESTTAJ [id number] Primary FORREST HICKSDOB: Anne [place] Insurance:ANTHEMPolic [id number] [facility] [place] Number: Hospital [address]Wpg: (419) [id number] Repository [phone] () romeo Date:8303-47-21XS [address]WPSOIDZNY N[place]VAEZ [address]EL: 02/13/2018 Secondary NOT GIVENUNK [employer] Insurance:SELF PAY [facility] Hospital Number: Effective Repository Date:2017-12-17 02/06/2018 FORREST [id number] Primary FORREST HICKSDOB: [place] Insurance:ANTHEMPolic [id number] [facility] [place] Number: Hospital [address]Amf: (419) [id number] Repository [phone] () romeo Date:4632-24-38BB [address]VCNWQDRNY N[place]VAEZ [address]UJ: 02/06/2018 Secondary NOT GIVENUNK [employer] Insurance:SELF PAY [facility] Hospital Number: Effective Repository Date:2018-01-19 01/16/2018 FORREST [id number] Primary FORREST HICKSDOB: [employer] [place]TM[place] Insurance:ANTHEMPolic [id number] [place] [facility] Number: Hospital [address]Ytq: (419) [id number] Repository [phone] () romeo Date:1176-12-17RJ [address]VCVXNULNY [place] [address]VP: 01/16/2018 Secondary NOT GIVENUNK [employer] Insurance:SELF PAY [facility] Hospital Number: Effective Repository Date:2017-12-17 01/09/2018 FORREST [id number] Primary FORREST HICKSDOB: [employer] HELTMAN Insurance:ANTHEMPolic [id number] [facility] [place] Number: Hospital [address]Kaf: (419) [id number] Repository [phone] () romeo Date:1986-60-01PS [address]RHMOTJINY [place] [address]FD: 01/09/2018 Secondary NOT GIVENUNK [place] Insurance:SELF PAY [facility] Hospital Number: Effective Repository Date:2017-11-13 12/17/2017 FORREST [id number] Primary FORREST HICKSDOB: [employer] [place]TM[place] Insurance:ANTHEMPolic [id number] [facility] [place] Number: Hospital [address]Wys: (419) [id number] Repository [phone] () romeo Date:8694-47-70VJ [address] [place] [address] 8[address]LF: 12/17/2017 Secondary NOT GIVENUNK [employer] Insurance:SELF PAY Community [facility] Hospital Number: Effective Repository Date:2017-12-17 12/17/2017 FORREST [id number] Primary FORREST HICKSDOB: [place] Insurance:ANTHEMPolic [id number] [facility] [place] Number: Hospital [address]Zbn: (419) [id number] Repository [phone] () romeo Date:7087-46-79TQ [address]TSWEJXO[address] [place] [address] 44[address]FB: 12/17/2017 Secondary NOT GIVENUNK [employer] Insurance:SELF PAY [facility] Hospital Number: Effective Repository Date:2017-12-17 12/12/2017 FORREST [id number] Primary FORREST HICKSDOB: [place] Insurance:ANTHEMPolic [id number] [facility] [place] Number: Hospital [id number]: (419) [id number] Repository [phone] () romeo Date:2974-12-53DI [address]QPCWWRC[address] [place] [address] 725[address]ZT: 12/12/2017 Secondary NOT GIVENUNK [employer] Insurance:SELF PAY Community [facility] Hospital Number: Effective Repository Date:2017-11-13 12/03/2017 FORREST [id number] Primary FORREST HICKSDOB: [place] Insurance:ANTHEMPolic [id number] [facility] [place] Number: Hospital [address]Nvw: (419) [id number] Repository [phone] () romeo Date:1806-23-95WH [address]RYIMJER[address] [place] [address]28[address]UQ: 12/03/2017 Secondary NOT GIVENUNK [place] Insurance:SELF PAY Community [facility] Hospital Number: Effective Repository Date:2017-12-03 12/03/2017 FORREST [id number] Primary FORREST HICKSDOB: [place] Insurance:ANTHEMPolic [id number] [facility] [place] Number: Hospital [id number]: (419) [id number] Repository [phone] () romeo Date:2805-44-32VM [address] [place] [address] 256[address]YU: 12/03/2017 Secondary NOT GIVENUNK [place] Insurance:SELF PAY [facility] Hospital Number: Effective Repository Date:2017-12-03 11/13/2017 FORREST [id number] Primary FORREST HICKSDOB: [employer] [place]TM[place] Insurance:ANTHEMPolic [id number] [place] Number: [place] [id number]: (419) [id number] Repository [phone] () romeo Date:7663-91-89HU [address] [place] [address] 61058TL: 11/13/2017 Secondary NOT GIVENUNK [employer] Insurance:SELF PAY [facility] Hospital Number: Effective Repository Date:2017-11-13 11/13/2017 Forrest [id number] Primary Forrest HiclanDOB: [employer] [place] Insurance:ANTHEMPolic [id number] [place] Number: Hospital [address]Tcg: (419) [id number] Repository [phone] () romeo Date:[id number] [address] [place] [id number]: 11/13/2017 Secondary NOT GIVENUNK [employer] Insurance:SELF PAY [facility] Hospital Number: Effective Repository Date:2017-11-13 09/26/2017 WAYNE S Primary FORREST D Buddhist HICLANDOB: Insurance:ANTHEMPolic [facility] y Number: Effective [id number] System [place] Date:2017-09-26 - [place], [place] [id number] [phone]: Name:John CHRISTOPHER [id number]: [id number], [place] () [id number]: [phone]
== END ==
PROVIDERS: Referring Provider Obstetrics & Gynecology; Visit Provider Obstetrics & Gynecology
DX: Z34.93 Encounter for supervision of normal pregnancy, unspecified, third trimester (principal)
CPT/HCPCS: 76816

== ENCOUNTER 2018-06-21 21:08 | Inpatient (IN) | payer BC, SELFPAY ==
[2018-06-17 08:47] VITALS: BMI 50.0
--- NOTE | 2018-06-21 21:45 | PCM.HP.OB ---
- Problem List (1) SROM (spontaneous rupture of membranes) Status: Acute (2) Obesity affecting Status: Acute Qualifiers: Comment: NST through delivery (3) Supervision of high risk elderly multigravida in third trimester Status: Acute Comment: PRR MISBAH 06/24/18 emaline girl Arben Menjivar Abner (4) Status: Acute Qualifiers: Comment: NIPT low risk. carrier and NTD screening declined. anatomy scan normal. (5) Cytology examination positive for high risk human papillomavirus (HPV) Status: Acute Comment: 11/2017 neg pap, positive HPV. Repeat 1 year (6) Rh negative status during Status: Acute Qualifiers: Comment: rhogam as needed and 28 weeks- given (7) Fibromyalgia Status: Chronic Comment: sees Dr Joyce (8) Rheumatoid arthritis Status: Chronic Qualifiers: Comment: see Dr Joyce History Date of Admission: 06/21/18 Final MISBAH: 06/24/18 Gestational age: 39 Weeks and 4 Days History of this : This is a 37 year-old, at 39w4d weeks gestational age presents with SROM clear fluid. she has had a complicated by obesity and AMA. She has a history of 2 previous uncomplicated vaginal deliveries. She denies any vb and admits good fm but has only a few contractions Medical History: Medical History (Last Reviewed 06/17/18 @ 08:46 by Jossy Nichols) Fibromyalgia M79.7 Rheumatoid arthritis M06.9 Surgical History: Surgical History (Last Reviewed 06/17/18 @ 08:46 by Jossy Nichols) H/O hernia repair Z98.890, Z87.19 Hx of cholecystectomy Z90.49 ankle surgery Allergies No Known Allergies Allergy (Verified 06/17/18 08:46) Home Medications: Home Medications hydroxychloroquine 200 mg tablet 200 mg PO QDAY 11/13/17 vitamin,calcium,fuxkzvyh-cakm-hykuf acid tablet 1 tab PO QDAY 01/16/18 promethazine 12.5 mg tablet 12.5 mg PO Q6H PRN #30 tab 02/16/18 ranitidine 150 mg tablet 150 mg PO BID #60 tab 04/03/18 Flucelvax Quad [id number] (PF) 60 mcg (15 mcg x 4)/0.5 mL IM syringe 0.5 ml IM ONCE #1 ml NS 04/17/18 ondansetron HCl 4 mg tablet 4 mg PO Q4H #60 tab 04/30/18 Smoking Status: Never smoker Alcohol: None Number of Fetus(es): 1 Heart Tracin moderate variability reactive no decels cat I tracing TOCO Analysis: q 5-8 History Past Pregnancies: Pregancy History 4 Elective abortions Hx Para 2 Spontaneous abortions Hx # Term Pregnancies Ectopic pregnancies Hx # Pregnancies Multiple births # of living children Past Pregnancies Del. Date Name GA/Weeks Outcome Route Bth Weight Infant Gen Labor Lgth Anesthesia Del Locatn Provider FOB Unknown 2003 Yvette live - full term [id number] Female epidural [facility] Care Unknown 2005 Frandy live - full term [id number] Male epidural [facility] Labs: Social History Smoking Status Never smoker Expected Delivery Method: Spontaneous Vaginal Describe any other labor & delivery plans:: OB Visit. MISBAH Calculator. Estimated Delivery Date 06/24/18. Based on LMP (certain) 09/17/17. Current WG 39w 1d. Number 1. Expected Delivery Route/Plan. . Specific Issue/Plans. flu vaccine: given. tdap vaccine: given. rhogam given. LARC form signed: declined. labor support person: Derek. pain management: []. cut cord/dad catch: []. : []. PP control planned: []. special requests: [] Review of Systems Constitutional: Denies: Fever, Malaise Eyes: Denies: Blurred vision, Vision Change HEENT: Denies: Head Aches, Visual Changes Cardiovascular: Denies: Chest Pain, Palpitations Respiratory: Denies: Cough, Shortness of Breath, Wheezing Gastrointestinal: Denies: Abdominal Pain, Diarrhea, Nausea, Vomiting Genitourinary: Denies: Dysuria, Hematuria Gynecological: Reports: Vaginal discharge Musculoskeletal: Reports: Joint Pain. Denies: Muscle pain Skin: Denies: Lesions, Rash Neurological: Denies: Blurred vision, Focal weakness, Headaches Psychiatric: Denies: Anxiety, Depression Endocrine: Denies: Heat/ Cold Intolerance Hematologic/ Lymphatic: Denies: Easy Bruising, Easy Bleeding Physical Exam General: Alert, Cooperative, No apparent distress HEENT: Atraumatic, Normocephalic. Negative for: Thyromegaly, Lymphadenopathy Cardiovascular: Regular rate Lungs: Normal air movement Abdomen: Soft, Non Tender, Gravid Neurological: Deep Tendon Reflexes 2+/4 and Symmetrical, Neuro grossly intact. 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 Negative for: Vulvar lesions Estimated gestational size: Appropriate for gestational size Presentation: Cephalic Cervix Dilation (cm): 3 Station: -2 Effacement (%): 80 Assessment/Plan All Active Problems (Last Reviewed 06/17/18 @ 08:46 by Jossy Nichols) SROM (spontaneous rupture of membranes) (Acute) Obesity affecting (Acute) Supervision of high risk elderly multigravida in third trimester (Acute) (Acute) Cytology examination positive for high risk human papillomavirus (HPV) (Acute) Rh negative status during (Acute) BMI 50.0-59.9, adult (Resolved) This is a 37 year-old, at [id number] gestational age presents with SROM Patient presents IAL, plan expectant management for , pitocin PRN if needed. Pain management: plans epidural. GBS negtive. Management of any complications: ANYI I have reviewed the [facility] and made any clinically relevant updates.
--- NOTE | 2018-06-21 21:49 | HP.PCM_ITS ---
- Problem List (1) SROM (spontaneous rupture of membranes) Status: Acute (2) Obesity affecting Status: Acute Qualifiers: Comment: NST through delivery (3) Supervision of high risk elderly multigravida in third trimester Status: Acute Comment: PRR MISBAH 06/24/18 emaline girl Arben Menjivar Abner (4) Status: Acute Qualifiers: Comment: NIPT low risk. carrier and NTD screening declined. anatomy scan normal. (5) Cytology examination positive for high risk human papillomavirus (HPV) Status: Acute Comment: 11/2017 neg pap, positive HPV. Repeat 1 year (6) Rh negative status during Status: Acute Qualifiers: Comment: rhogam as needed and 28 weeks- given (7) Fibromyalgia Status: Chronic Comment: sees Dr Joyce (8) Rheumatoid arthritis Status: Chronic Qualifiers: Comment: see Dr Joyce History Date of Admission: 06/21/18 Final MISBAH: 06/24/18 Gestational age: 39 Weeks and 4 Days History of this : This is a 37 year-old, at 39w4d weeks gestational age presents with SROM clear fluid. she has had a complicated by obesity and AMA. She has a history of 2 previous uncomplicated vaginal deliveries. She denies any vb and admits good fm but has only a few contractions Medical History: Medical History (Last Reviewed 06/17/18 @ 08:46 by Jossy Nichols) Fibromyalgia M79.7 Rheumatoid arthritis M06.9 Surgical History: Surgical History (Last Reviewed 06/17/18 @ 08:46 by Jossy Nichols) H/O hernia repair Z98.890, Z87.19 Hx of cholecystectomy Z90.49 ankle surgery Allergies No Known Allergies Allergy (Verified 06/17/18 08:46) Home Medications: Home Medications hydroxychloroquine 200 mg tablet 200 mg PO QDAY 11/13/17 vitamin,calcium,kxamzfvk-iitb-wnraz acid tablet 1 tab PO QDAY 01/16/18 promethazine 12.5 mg tablet 12.5 mg PO Q6H PRN #30 tab 02/16/18 ranitidine 150 mg tablet 150 mg PO BID #60 tab 04/03/18 Flucelvax Quad [id number] (PF) 60 mcg (15 mcg x 4)/0.5 mL IM syringe 0.5 ml IM ONCE #1 ml NS 04/17/18 ondansetron HCl 4 mg tablet 4 mg PO Q4H #60 tab 04/30/18 Smoking Status: Never smoker Alcohol: None Number of Fetus(es): 1 Heart Tracin moderate variability reactive no decels cat I tracing TOCO Analysis: q 5-8 History Past Pregnancies: Pregancy History 4 Elective abortions Hx Para 2 Spontaneous abortions Hx # Term Pregnancies Ectopic pregnancies Hx # Pregnancies Multiple births # of living children Past Pregnancies Del. Date Name GA/Weeks Outcome Route Bth Weight Infant Gen Labor Lgth Anesthesia Del Locatn Provider FOB Unknown 2003 Yvette live - full term [id number] Female epidural [facility] Care Unknown 2005 Frandy live - full term [id number] Male epidural [facility] Labs: Social History Smoking Status Never smoker Expected Delivery Method: Spontaneous Vaginal Describe any other labor & delivery plans:: OB Visit. MISBAH Calculator. Estimated Delivery Date 06/24/18. Based on LMP (certain) 09/17/17. Current WG 39w 1d. Number 1. Expected Delivery Route/Plan. . Specific Issue/Plans. flu vaccine: given. tdap vaccine: given. rhogam given. LARC form signed: declined. labor support person: Derek. pain management: []. cut cord/dad catch: []. : []. PP control planned: []. special requests: [] Review of Systems Constitutional: Denies: Fever, Malaise Eyes: Denies: Blurred vision, Vision Change HEENT: Denies: Head Aches, Visual Changes Cardiovascular: Denies: Chest Pain, Palpitations Respiratory: Denies: Cough, Shortness of Breath, Wheezing Gastrointestinal: Denies: Abdominal Pain, Diarrhea, Nausea, Vomiting Genitourinary: Denies: Dysuria, Hematuria Gynecological: Reports: Vaginal discharge Musculoskeletal: Reports: Joint Pain. Denies: Muscle pain Skin: Denies: Lesions, Rash Neurological: Denies: Blurred vision, Focal weakness, Headaches Psychiatric: Denies: Anxiety, Depression Endocrine: Denies: Heat/ Cold Intolerance Hematologic/ Lymphatic: Denies: Easy Bruising, Easy Bleeding Physical Exam General: Alert, Cooperative, No apparent distress HEENT: Atraumatic, Normocephalic. Negative for: Thyromegaly, Lymphadenopathy Cardiovascular: Regular rate Lungs: Normal air movement Abdomen: Soft, Non Tender, Gravid Neurological: Deep Tendon Reflexes 2+/4 and Symmetrical, Neuro grossly intact. 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 Negative for: Vulvar lesions Estimated gestational size: Appropriate for gestational size Presentation: Cephalic Cervix Dilation (cm): 3 Station: -2 Effacement (%): 80 Assessment/Plan All Active Problems (Last Reviewed 06/17/18 @ 08:46 by Jossy Nichols) SROM (spontaneous rupture of membranes) (Acute) Obesity affecting (Acute) Supervision of high risk elderly multigravida in third trimester (Acute) (Acute) Cytology examination positive for high risk human papillomavirus (HPV) (Acute) Rh negative status during (Acute) BMI 50.0-59.9, adult (Resolved) This is a 37 year-old, at [id number] gestational age presents with SROM Patient presents IAL, plan expectant management for , pitocin PRN if needed. Pain management: plans epidural. GBS negtive. Management of any complications: ANYI I have reviewed the [facility] and made any clinically relevant updates.
[2018-06-21 21:50] VITALS: BMI 50.1
[2018-06-21] MEDS: Lactated Ringers 1,000 ML 50 ML IV (22:10)
[2018-06-21 22:50] LABS: Hemoglobin 11.3 g/dl (12.0-15.0); Mean Corp Hgb Conc 34.2 g/gl (32-36); Mean Corpuscular Hgb 29.3 pg (27.0-32.0); Mean Corpuscular Volume 85.5 fL (81-99); Mean Platelet Vol. 9.4 fl (6.2-12.0); Platelet Count 195 K/mm3 (150-450); RBC Distribution Width CV 13.8 % (11.6-14.6); RBC Distribution Width SD 42.6 fl (35.1-43.9); Red Blood Count 3.86 M/mm3 (4.2-5.4); White Blood Count 9.7 K/mm3 (4.4-11.0)
[2018-06-21 22:51] LABS: Scan Indicated on CBC? Y/N NO
[2018-06-22] MEDS: fentaNYL-bupivacaine (epidural) 100 ML BAG EPIDURAL ×2 (02:00→06:45)
[2018-06-22] MEDS: Lactated Ringers 1,000 ML 50 ML IV ×2 (02:02→09:52)
[2018-06-22] MEDS: Oxytocin 30 units/NS 500 ml 30 UNITS/500 ML IV.SOLN IV (06:13)
[2018-06-22] MEDS: Ondansetron 4 MG/2 ML Vial IV (08:52)
[2018-06-22] MEDS: Oxytocin 30 units/NS 500 ml 30 UNITS/500 ML IV.SOLN 334 UNITS IV (11:27)
--- NOTE | 2018-06-22 11:29 | PCM.OB.VAG ---
- Problem List (1) SROM (spontaneous rupture of membranes) Status: Acute (2) Obesity affecting Status: Acute Qualifiers: Comment: NST through delivery (3) Supervision of high risk elderly multigravida in third trimester Status: Acute Comment: PRR MISBAH 06/24/18 emaline girl Arben Menjivar Abner (4) Status: Acute Qualifiers: Comment: NIPT low risk. carrier and NTD screening declined. anatomy scan normal. (5) Cytology examination positive for high risk human papillomavirus (HPV) Status: Acute Comment: 11/2017 neg pap, positive HPV. Repeat 1 year (6) Rh negative status during Status: Acute Qualifiers: Comment: rhogam as needed and 28 weeks- given (7) Fibromyalgia Status: Chronic Comment: sees Dr Joyce (8) Rheumatoid arthritis Status: Chronic Qualifiers: Comment: see Dr Joyce Vaginal Delivery Maternal Presentation: Active Labor 37-year-old presents in active labor with rupture of membranes Amniotic Membrane Rupture Type: Spontaneous at home Amniotic Fluid Description: Clear Final MISBAH: 06/24/18 Gestational age: 39 Weeks and 5 Days Date of Procedure: 06/22/18 Pre-Operative Diagnosis: In active labor rupture of membranes Post-Operative Diagnosis: Same Surgery/ Procedure Performed: Spontaneous Vaginal Delivery Type of Anesthesia: Epidural Description of Procedure: Patient began pushing and delivered the head in the LB presentation. The head was delivered atraumatically . The anterior and posterior shoulders delivered without complication followed by the rest of the and the infant was placed on the maternal abdomen. Delayed cord clamping was employed for approximately 60 seconds. Cord was clamped and cut and gentle traction was applied to the cord and the placenta delivered spontaneously immediately following it was noted to be intact with three-vessel cord. The perineum and vagina were inspected and noted to have no laceration. EBL was 200 cc. Patient and infant tolerated delivery well. Presentation: LB Placental Delivery Description: Spontaneous Placenta Disposition: [facility] Cord Vessel Description: 3 Vessels Cord Entanglement: None Estimated Blood Loss: 200 Infant A gender: Female Episiotomy Description: None Laceration: None Medications given after delivery: IV Pitocin Complications: None
[2018-06-22] MEDS: Oxytocin 30 units/NS 500 ml 30 UNITS/500 ML IV.SOLN 167 UNITS IV (11:57)
[2018-06-22] MEDS: 0.9% Saline Lock 10 ML Syringe IV (14:30)
[2018-06-22 15:30] VITALS: BP 119/60; PULSE 75; RESP 16; TEMP 36.8
--- NOTE | 2018-06-22 15:30 | NURSING ---
Epidural cath removed, blue tip intact.
[2018-06-22] MEDS: Naproxen 250 MG Tablet PO (18:41)
[2018-06-22 19:56] VITALS: PULSE 70; RESP 18; TEMP 36.7; O2SAT 98
[2018-06-22] MEDS: Acetaminophen 500 MG Tablet 1000 MG PO (20:35)
[2018-06-22 20:36] VITALS: BP 132/70
[2018-06-23 00:15] VITALS: BP 115/65; PULSE 73; RESP 17; TEMP 36.6; O2SAT 95
[2018-06-23 04:01] VITALS: BP 116/70; PULSE 66; RESP 17; TEMP 37.1; O2SAT 96
--- NOTE | 2018-06-23 07:39 | PCM.PN.OB ---
Patient Problems: Active and Suspected Problems (Last Reviewed 06/17/18 @ 08:46 by Jossy Nichols) SROM (spontaneous rupture of membranes) (Acute) Subjective: Doing well. No CP, SOB. - Physical Exam General: Alert, Oriented x3 Abdomen: Soft, Non Tender, - - FF below U Vital Signs Temp Pulse Resp BP Pulse Ox 98.7 F 66 17 116/70 96 06/23/18 04:01 06/23/18 04:01 06/23/18 04:01 06/23/18 04:01 06/23/18 04:01 Oxygen Delivery Method Room Air Weight: 283 lb Body Mass Index (BMI) 50.1 Intake and Output for Last 24 Hours 06/21/18 06/22/18 06/23/18 23:59 23:59 23:59 Intake Total 3551 / 3551 Output Total 2750 / 2750 Balance 801 / 801 Medical Necessity - Tobacco Use Smoking Status: Former smoker Assessment/Plan All Active Problems (Last Reviewed 06/17/18 @ 08:46 by Jossy Nichols) SROM (spontaneous rupture of membranes) (Acute) Obesity affecting (Acute) Supervision of high risk elderly multigravida in third trimester (Acute) (Acute) Cytology examination positive for high risk human papillomavirus (HPV) (Acute) Rh negative status during (Acute) BMI 50.0-59.9, adult (Resolved) PPD #1: Routine care. Denies concerns. . Rh neg
[2018-06-23 08:00] VITALS: BP 122/70; PULSE 66; RESP 18; TEMP 36.2
[2018-06-23] MEDS: Acetaminophen 500 MG Tablet 1000 MG PO (08:05)
[2018-06-23] MEDS: Senna/Docusate Sodium 1 Tablet PO (08:06)
[2018-06-23] MEDS: Prenatal Vits Tablet 1 TABLET PO (13:38)
[2018-06-23] MEDS: Naproxen 250 MG Tablet PO ×2 (13:42→22:09)
[2018-06-23 13:48] VITALS: BP 113/60; PULSE 80; RESP 18; TEMP 36.5
[2018-06-23 19:57] VITALS: BP 109/64; PULSE 79; RESP 16; TEMP 36.6; O2SAT 98
[2018-06-24 01:45] VITALS: BP 126/70; PULSE 73; RESP 18; TEMP 36.9; O2SAT 96
[2018-06-24] MEDS: Acetaminophen 500 MG Tablet 1000 MG PO (05:24)
--- NOTE | 2018-06-24 08:13 | PCM.PN.OB ---
Patient Problems: Active and Suspected Problems (Last Reviewed 06/17/18 @ 08:46 by Jossy Nichols) SROM (spontaneous rupture of membranes) (Acute) Subjective: No CP, SOB. Doing well. Plans home today - Physical Exam General: Alert, Oriented x3 Abdomen: Soft, Non Tender, - - FF below U Vital Signs Temp Pulse Resp BP Pulse Ox 98.4 F 73 18 126/70 H 96 06/24/18 01:45 06/24/18 01:45 06/24/18 01:45 06/24/18 01:45 06/24/18 01:45 Oxygen Delivery Method Room Air Weight: 283 lb Body Mass Index (BMI) 50.1 Intake and Output for Last 24 Hours 06/22/18 06/23/18 06/24/18 23:59 23:59 23:59 Intake Total 3551 / 3551 Output Total 2750 / 2750 Balance 801 / 801 Medical Necessity - Tobacco Use Smoking Status: Former smoker Assessment/Plan All Active Problems (Last Reviewed 06/17/18 @ 08:46 by Jossy Nichols) SROM (spontaneous rupture of membranes) (Acute) Obesity affecting (Acute) Supervision of high risk elderly multigravida in third trimester (Acute) (Acute) Cytology examination positive for high risk human papillomavirus (HPV) (Acute) Rh negative status during (Acute) BMI 50.0-59.9, adult (Resolved) PPD#2: Routine care. . Home today
--- NOTE | 2018-06-24 08:15 | PCM.DCVAG ---
Additional Instructions: If you experience any of the following, contact your healthcare provider. Bleeding that soaks a pad every hour for 2 hours Fever 100.4 or higher Unrelieved incision or abdominal pain Swelling, redness, discharge or bleeding from your incision or episiotomy site Your incision begins to separate Problems urinating (including inability to urinate or burning while urinating). Visual changes Severe headache Flu-like symptoms Pain or redness in one of both of your breasts Pain, warmth, tenderness or swelling in your legs, especially the calf area Frequent nausea and vomiting Symptoms of depression or anxiety If you experience any of the following, call 911 or go to the nearest Emergency Room. Chest pain Problems breathing Seizure activity Partial or complete paralysis of a body part, slurred speech, weakness or drooping of the face, or a sudden inability to walk or hold your balance Allergies/Adverse Reactions: Allergies No Known Allergies Allergy (Verified 06/21/18 21:47) Medications to take at Discharge vitamin,calcium,bwbvajjy-ufqa-rmyin acid tablet 1 tab PO QDAY 01/16/18 Ondansetron HCl [Zofran] 4 mg PO Q4H PRN 06/21/18 Primary Care Physician: Care Physician,No Primary [Primary Care Provider] - Test Results: Test results from this visit will be discussed in further detail at your follow-up appointment, if applicable.
--- NOTE | 2018-06-24 08:16 | DCINST_ITS ---
Additional Instructions: If you experience any of the following, contact your healthcare provider. * Bleeding that soaks a pad every hour for 2 hours * Fever 100.4 or higher * Unrelieved incision or abdominal pain * Swelling, redness, discharge or bleeding from your incision or episiotomy site * Your incision begins to separate * Problems urinating (including inability to urinate or burning while urinating). * Visual changes * Severe headache * Flu-like symptoms * Pain or redness in one of both of your breasts * Pain, warmth, tenderness or swelling in your legs, especially the calf area * Frequent nausea and vomiting * Symptoms of depression or anxiety If you experience any of the following, call 911 or go to the nearest Emergency Room. * Chest pain * Problems breathing * Seizure activity * Partial or complete paralysis of a body part, slurred speech, weakness or drooping of the face, or a sudden inability to walk or hold your balance Allergies/Adverse Reactions: Allergies No Known Allergies Allergy (Verified 06/21/18 21:47) Medications to take at Discharge vitamin,calcium,wjscnhrf-vogr-wtctt acid tablet 1 tab PO QDAY 01/16/18 Ondansetron HCl [Zofran] 4 mg PO Q4H PRN 06/21/18 Primary Care Physician: Care Physician,No Primary [Primary Care Provider] - Test Results: Test results from this visit will be discussed in further detail at your follow- up appointment, if applicable.
[2018-06-24 08:40] VITALS: BP 128/73; PULSE 65; RESP 16; TEMP 36.6; O2SAT 99
--- OUTSIDE RECORDS SUMMARY | 2018-09-23 14:05 | XMS RPT_ITS ---
:1980 Author Organization OHIP Support Name Relationship Address Phone [facility] Unavailable [address] + [place] [address] [place], [place] Unavailable [address] + [address] [facility]available [address] + [place] [address] VILL[place], FOR[place] Unavailable [address] + [address] [facility] Unavailable [address] + [place] [address] VILL[facility], FOR[place] Unavailable [address] + [address] [facility] Unavailable [address] + [place] [id number] VILL[facility], FORREST Unavailable [address] + [address] [facility] Unavailable [address] + [place] [address] VILL[facility], FOR[place] Unavailable [address] + [address] [facility] Unavailable [address] + [place] [phone] VILLAR, FOR[place] Unavailable [address] + [address] [facility] Unavailable [address] + [place] [phone] VILL[facility], FOR[place] Unavailable [address] + [address] [facility] Unavailable [address] + [place] [phone] VILL[facility], FOR[place] Unavailable [address] + [address] [facility] Unavailable [address] + [place], [facility], [place] Unavailable [address] + [place], [address] [facility] Unavailable [address] + [place], [place] [address] [facility], [place] Unavailable [address] + [place], [address] [facility] Unavailable [address] + [place], [place] [address] [facility], [place] Unavailable [address] + [place], [address] [facility] Unavailable [address] + [place], [place] [address] VILL[place], [place] Unavailable [address] + [place], [address] [facility] Unavailable [address] + [place], [place] [address] [place], [place] Unavailable [address] + [place], [address] [facility] Unavailable [address] + [place], [place] [address] [place], [place] Unavailable [address] + [place], [address] [facility] Unavailable [address] + [place], [place] [address] [place], [place] Unavailable [address] + [place], [address] [facility] Unavailable [address] + [place], [place] [address] [place], [place] Unavailable [address] + [place], [address] [facility] Unavailable [address] + [place], [place] [address] [place], [place] Unavailable [address] + [place], [address] [facility] Unavailable [address] + [place], [place] [address] [place], [place] Unavailable [address] + [place], [address] [facility] Unavailable [address] + [place], [facility], [place] Unavailable [address] + [place], [address] [facility] Unavailable [address] + [place], [place] [address] [place], [place] Unavailable [address] + [place], [address] [facility] Unavailable [address] + [place], [place] [address] [place], [place] Unavailable [address] + [place], [address] [facility] Unavailable [address] + [place], [place] [address] [place], [place] Unavailable [address] + [place], [address] [facility] Unavailable [address] + [place], [place] [address] V[place], [place] Unavailable [address] + [place], [address] [facility] Unavailable [address] + [place], [place] [address] [place], [place] Unavailable [address] + [place], [address] [facility] Unavailable [address] + [place], [place] [address] [place], [place] Unavailable [address] + [place], [address] [facility] Unavailable [address] + [place], [place] [address] [place], [place] Unavailable [address] + [place], [address] [facility] Unavailable [address] + [place], [place] [address] [place], [place] Unavailable [address] + [place], [address] [facility] Unavailable [address] + [place], [place] [address] [place], FOR[place] Unavailable [address] + [place], [address] [facility] Unavailable [address] + [place] [id number] V[place], [place] Unavailable [address] + [address] [facility] Unavailable [address] + [place] [address] [place], [place] Unavailable [address] + [address] [facility] Unavailable [address] + [place] [address] [place], [place] Unavailable [address] + [address] [facility] Unavailable [address] + [place] [address] [place], [place] Unavailable [address] + [address] [facility] Unavailable Unavailable + [address], [place] Unavailable [address] + [place] [address] Care Team Providers Name Role Phone Litzy [...] Radha Consulting Unavailable Marcanthony, Radha Admitting Unavailable NewcastleVeronica Attending Unavailable Marcanthony, Radha Referring Unavailable Primay [...] Primary Care Unavailable Marcanthony, Radha Attending Unavailable Newcastle, Veronica Attending Unavailable Primay Care Physicia, No Referring Unavailable Primay Care Physicia, No Primary Care Unavailable Marcanthony, Radha Attending Unavailable Marcanthony, Radha Referring Unavailable Primay Care Physicia, No Primary Care Unavailable Marcanthony, Radha Attending Unavailable Primay Care Physicia, No Referring Unavailable Marcanthony, aRdha Attending Unavailable Primay Care Physicia, No Referring [...] Primary Care Unavailable Marcanthony, Radha Referring Unavailable Newcastle, Veronica Attending Unavailable Primay Care Physicia, No Referring Unavailable Marcanthony, Radha Attending Unavailable Marcanthony, Radha Referring Unavailable Primay Care Physicia, No Primary Care Unavailable CebulSanket Attending Unavailable Marcanthony, Radha Referring Unavailable Primay Care Physicia, No Primary Care Unavailable Marcanthony, Radha Consulting Unavailable Reddy, Veronica Attending Unavailable Primay Care Physicia, No Referring Unavailable Reddy, Veronica Attending Unavailable Primay Care Physicia, No Referring Unavailable Newcastle, Veronica Attending Unavailable Primay Care Physicia, No [...] 06/17/2018 Unknown O99.210 - Obesity Thiago, Active [place] complicating [facility] , Hospital unspecified Repository trimester / O99.210(ICD-10) 06/12/2018 Unknown O09.521 - Marcanthony, Active [place] Supervision of [facility] multigravida, Repository first trimester / O09.521(ICD-10) 06/12/2018 Unknown M06.09 - Marcanthony, Active [place] Rheumatoid [facility] arthritis without Hospital rheumatoid factor, Repository multiple sites / M06.09(ICD-10) 06/12/2018 Unknown M79.7 - Marcanthony, Active [place] Fibromyalgia / [facility] M79.7(ICD-10) Hospital Repository 06/12/2018 Unknown O09.893 - Marcanthony, Active [place] Supervision of [facility] other high risk Hospital pregnancies, third Repository trimester / O09.893(ICD-10) 06/12/2018 Unknown Z68.43 - Body mass Marcanthony, Active [place] index (BMI) [facility] 50-59.9, adult / Hospital Z68.43(ICD-10) Repository 06/12/2018 Unknown O09.523 - Marcanthony, Active [place] Supervision of [facility] multigravida, Repository third trimester / O09.523(ICD-10) 06/12/2018 Unknown Z3A.38 - 38 weeks Marcanthony, Active [place] gestation of [facility] / Hospital Z3A.38(ICD-10) Repository 06/08/2018 Unknown Z3A.37 - 37 weeks Marcanthony, Active [place] gestation of [facility] / Hospital Z3A.37(ICD-10) Repository 06/01/2018 Unknown Z34.90 - Encounter Veronica Blakely Active [place] for supervision of [facility] normal , Hospital unspecified, Repository unspecified trimester / Z34.90(ICD-10) 05/14/2018 Unknown M79.89 - Other Sanket Zuñiga Active [place] specified soft Community tissue disorders / Hospital M79.89(ICD-10) Repository 05/07/2018 Unknown Z3A.33 - 33 weeks Reddy Veronica Active [place] gestation of [facility] / Hospital Z3A.33(ICD-10) Repository 04/30/2018 Unknown Z3A.32 - 32 weeks Thiago, Active [place] gestation of [facility] / Hospital Z3A.32(ICD-10) Repository 04/03/2018 Unknown Z67.91 - [facility] [place] Unspecified blood [facility] type, Rh negative Hospital / Z67.91(ICD-10) Repository 04/03/2018 Unknown Z23 - Encounter Marcanthony, Active [place] for immunization / [place] [address](ICD-10) Hospital Repository 04/03/2018 Unknown O09.899 - [facility] [place] Supervision of [facility] other high risk Hospital pregnancies, Repository unspecified trimester / O09.899(ICD-10) 04/03/2018 Unknown Z3A.28 - 28 weeks [facility], Active [place] gestation of [facility] / Hospital Z3A.28(ICD-10) Repository 02/13/2018 Unknown O09.892 - Marctutwiler, Active [place] Supervision of [facility] high risk Hospital pregnancies, Repository second trimester / O09.892(ICD-10) 01/16/2018 Unknown Z3A.17 - 17 weeks [facility], Active [place] gestation of [facility] / Hospital Z3A.17(ICD-10) Repository PROCEDURES PROCEDURES No Procedure Records FoundRESULTS RESULTS DISCHARGE INSTRUCTION Observed: 06/24/2018 Status: F Source: [place] 8:16 AM [facility] REPOSITORY [facility] Medical Records Department [address] [place] [address] Instructions for Home/Discharge Instructions 06/24/18 0815 MR#: [id number] Acct: [id number] Name: WAYNE VILLAR Rep #: [id number] : 1980 37 From: Veronica Blakely SAL[employer]ICE CONS[employer]ANT[employer]C PCP: Care Physician, No Primary Status: ADM [...] 06/21/18 21:47) Medications to take at Discharge vitamin,calcium,xjbvkqph-gmxj-wzpwp acid tablet 1 tab PO QDAY 01/16/18 [...] OPERATIVE REPORT Observed: 06/22/2018 Status: F Source: [place] 11:31 AM [facility] REPOSITORY [facility] Medical Records Department [address] [facility] [place] [address] Operative Report 06/22/18 1129 MR#: [id number] Acct: [id number] Name: WAYNE VILLAR Rep #: [id number] : 1980 37 From: Radha Das MD PCP: Care Physician, No Primary Status: ADM IN Y Location: HL519-3 - Problem List (1) SROM (spontaneous rupture [...] Status: F Source: [place] EXAM 9:49 PM [facility] REPOSITORY [facility] Medical Records Department [address] [place] [address] History and Physical 06/21/185 MR#: [id number] Acct: [id number] Name: WAYNE VILLAR Rep #: [id number] : 1980 37 From: Radha Das MD PCP: Care Physician, No Primary Status: ADM IN Y Location: [id number] - Problem List (1) SROM (spontaneous rupture [...] mg tablet 200 mg PO QDAY 11/13/17 vitamin,calcium,zmijcpki-efii-ketsu acid tablet 1 tab PO QDAY 01/16/18 promethazine 12.5 mg tablet 12.5 mg PO Q6H PRN #30 tab 02/16/18 ranitidine 150 mg tablet 150 mg PO BID #60 tab 04/03/18 Flucelvax Quad [id number] (PF) 60 mcg (15 mcg x 4)/0.5 [...] abortions Past Pregnancies Del. DatName GA/WeeksOutcome Route [facility] LocaProviderFOB e ht en ia tn Unknown 2003 Mary live birNSVD 6eil8anuCktkgz epidural Mansfiel an th - [facility] porfirio d Womens l term Care Labs: [...] Symmetrical, Neuro grossly intact. Negative for: Clonus BEHAVIORAL PEDIATRICIAN: Normal external genitalia. Negative for: Vulvar lesions [...] (Resolved) This is a 37 year-old, at 49t4ccdydl gestational age presents with SROM Patient presents IAL, plan expectant management for , pitocin PRN if needed. Pain management: plans epidural. GBS negtive. Management of any complications: AMA I have reviewed the [facility] and made any clinically relevant updates. 06/21/182148 <Electronically signed by Radha Das MD> Date Radha Das MD Cosigner Signature: Date (if applicable) CC: No Primary Care Physician; Radha Das MD Signed CBC-COMPLETE BLOOD CNT Collected: 06/21/2018 Status: F Source: [place] NO DIFF 9:36 PM [facility] REPOSITORY TYPE CODE TESTS RESULT OUT OF [...] MPV 9.4 Performed By: #### L100.0500 #### [facility] [address] [place], [place], [address] TYPE AND SCREEN Collected: 06/21/2018 Status: F Source: [place] 9:36 PM [facility] REPOSITORY Order Comment: Reason for Type AND Screen/Red Cells: ROUTINE TYPE CODE TESTS RESULT OUT OF RANGE REFERENCE UNITS LAB B10.0800 A Normal BLOOD TYPE GEL NEGATIVE LAB B100.4000 Normal Antibody NEGATIVE Screen Performed By: #### B101.7450 #### [facility] [address] [place], [place], [address] RECONCILIATION MACHINE OPERATOR OFFICE VISIT Observed: 06/18/2018 Status: F Source: [place] REPORT 4:18 PM [facility] REPOSITORY [facility] [address] [place], [place] [address] OFFICE VISIT Date of Service: 06/17/18 MR#: [id number] Acct: [id number] Name: WAYNE VILLAR Rep #: [id number] : 1980 Provider: Radha Das MD Age/Sex: 37/F Location[facility] Status: Signed Intake Vital Signs06/17/18 Body [...] mg PO QDAY 11/13/17 [History Confirmed 06/17/18] vitamin,calcium,vikemxtz-msfm-hnjlx acid tablet 1 tab PO QDAY 01/16/18 [...] safe at home: Yes additional social history: [employer] in [place] Patient works at [employer] Pregancy History 4 Elective abortions Hx Para 2 Spontaneous abortions Past Pregnancies Del. DatName GA/WeeksOutcome Route Bth WeigInfant GLabor LgAnesthesDel LocaProviderFOB e ht en ia tn Unknown 2003 Mary live birNSVD 5dzg4cniOgfoyl epidural Mansfiel an th - ful porfirio [...] Trimester: third trimester Additional Codes Non-Stress Test (50403) 06/17/18 2305 <Electronically signed by Radha Das MD> Date Radha Das MD 06/18/18 1618<Electronically signed by Veronica MARTINEZ> Cosigner Signature: Date (if applicable) Veronica Blakely CC: RECONCILIATION MACHINE OPERATOR OFFICE VISIT Observed: 06/12/2018 Status: F Source: [place] REPORT 10:11 AM [facility] REPOSITORY [facility] [address] [place] [address] OFFICE VISIT Date of Service: 06/12/18 MR#: [id number] Acct: [id number] Name: WAYNE VILLAR Rep #: [id number] : 1980 Provider: Radha Das MD Age/Sex: 37/F Location: [facility] Status: Signed Intake Vital Signs06/12/18 Body Mass Index (BMI) 50.0 06/12/18 Height 5 ft 3 in 06/12/18 Weight: 286 lb 06/12/18 Body Mass Index (BMI) 50.6 06/12/18 Blood Pressure 122/74 H Intake Visit Reasons: 38 week ob Lead Mason Tender Required: No Is patient in pain?: No Allergies No Known Allergies Allergy (Verified 06/12/18 09:32) Medications hydroxychloroquine 200 mg tablet 200 mg PO QDAY 11/13/17 [History Confirmed 06/12/18] vitamin,calcium,efailvie-eikj-vogfq acid tablet 1 tab PO QDAY 01/16/18 [...] safe at home: Yes additional social history: [employer] in [place] Patient works at [employer] Pregancy History 4 Elective abortions Hx Para 2 Spontaneous abortions Past Pregnancies Del. DatName GA/WeeksOutcome Route [facility] WeigIncharlyt Parviz LgAnesthesDel LocaProviderFOB e ht en ia tn Unknown 2003 Mary live birNSVD 6xhy5etjLgnlgo epidural Mansfiel an th - ful porfirio [...] first trimester O09.52 Additional Codes Non-Stress Test (86440) 06/12/18 1011 <Electronically signed by Radha Das MD> Date Radha Das MD Cosigner Signature: Date (if applicable) CC: OB LIMITED WITH Observed: 06/08/2018 Status: F Source: [place] BIOMETRICS 1:19 PM [facility] REPOSITORY [facility] Imaging Services [address] [place] [address] OB Limited With Biometrics MR#: [id number] Acct: [id number] Name: WAYNE VILLAR Rep #: [id number] : 1980 F 37 From: Angel Gilbert MD PCP: Care Physician, No Primary Status: REG CLI Study: OB Limited With Biometrics Date of Exam: 06/08/18 Exam# [id number] Ordering Dr: Radha Das MD STUDY: SECOND [...] No Primary Care Physician; Radha Das MD Resawyer: Signed RECONCILIATION MACHINE OPERATOR OFFICE VISIT Observed: 06/05/2018 Status: F Source: [place] REPORT 2:21 PM [facility] Women's [address] [place] [address] OFFICE VISIT Date of Service: 06/05/18 MR#: [id number] Acct: [id number] Name: WAYNE VILLAR Rep #: [id number] : 1980 Provider: Radha Das MD Age/Sex: 37/F Location: [facility] Status: Signed with Addenda ADDENDUM by Radha Das MD on 06/05/18 at 7566 OFFICE PROCEDURES Office Procedure Documentation entered by [...] 37 week ob Chief Complaint: est ob Lead Mason Tender Required: No Is patient in pain?: Yes Allergies No Known Allergies Allergy (Verified 05/27/18 15:37) Medications hydroxychloroquine 200 mg tablet 200 mg PO QDAY 11/13/17 [History Confirmed 05/27/18] vitamin,calcium,prkmxzos-ewfa-mjahf acid tablet 1 tab PO QDAY 01/16/18 [...] safe at home: Yes additional social history: [employer] in [place] Patient works at [employer] Pregancy History 4 Elective abortions Hx Para 2 Spontaneous abortions Past Pregnancies Del. DatName GA/WeeksOutcome Route Bth WeigInfant GLabor LgAnesthesDel LocaProviderFOB e ht en th ia tn Unknown 2003 Mary live birNSVD 2rso6rasAlnjiu epidural Mansfiel an th - ful porfirio [...] regular ctx cbc gct rhogam tdap today Rahda Das MD on 04/03/18 Visit Date: 03/13/18 [...] Source: [place]NE CULTURE, GROUP B 1:56 PM [facility] STREPTOCOCCUS REPOSITORY [place] Culture Group B Beta Streptococcus is not isolated. Performed By: #### M100.1800 #### [facility] [address] [place], [address] RECONCILIATION MACHINE OPERATOR OFFICE VISIT Observed: 05/27/2018 Status: F Source: [place] REPORT 3:58 PM [facility] REPOSITORY [facility] [address] [place] [address] OFFICE VISIT Date of Service: 05/27/18 MR#: [id number] Acct: [id number] Name: WAYNE VILLAR Rep #: [id number] : 1980 Provider: TOMÁS Blakely Age/Sex: 37/F Location: [facility] Status: Signed Intake Vital Signs05/27/18 Height 5 ft 3 in 05/27/18 Weight: 285 lb 2 oz 05/27/18 Body Mass Index (BMI) 50.5 05/27/18 Blood Pressure 112/70 Intake Visit Reasons: 36 week ob - NST - coming @3 Lead Mason Tender Required: No Is patient in pain?: No Allergies No Known Allergies Allergy (Verified 05/27/18 15:37) Medications hydroxychloroquine 200 mg tablet 200 mg PO QDAY 11/13/17 [History Confirmed 05/27/18] vitamin,calcium,rrbmfslt-apbu-iqswk acid tablet 1 tab PO QDAY 01/16/18 [...] safe at home: Yes additional social history: [employer] in [place] Patient works at [place] [employer] Pregancy History 4 Elective abortions Hx Para 2 Spontaneous abortions Past Pregnancies Del. DatName GA/WeeksOutcome Route Bt WeigInfant GLabor LgAnesthesDel LocaProviderFOB e ht en ia tn Unknown 2003 Mary live birNSVD 4vqb0varMdrvzf epidural Mansfiel an th - ful porfirio [...] Trimester: third trimester Additional Codes Non-Stress Test (25097) 05/27/18 1558 <Electronically signed by Veronica MARTINEZ> Date Veronica MARTINEZ Cosigner Signature: Date (if applicable) CC: RECONCILIATION MACHINE OPERATOR OFFICE VISIT Observed: 05/22/2018 Status: F Source: [place] REPORT 9:21 AM [facility] Women's [place] [address] [place] [address] OFFICE VISIT Date of Service: 05/22/18 MR#: [id number] Acct: [id number] Name: WAYNE VILLAR Rep #: [id number] : 1980 Provider: TOMÁS Blakely Age/Sex: 37/F Location: [facility] Status: Signed Intake Vital Signs05/22/18 Height 5 ft 3 in 05/22/18 Weight: 282 lb 4 oz 05/22/18 Body Mass Index (BMI) 50.0 05/22/18 Blood Pressure 116/68 Intake Visit Reasons: 35 weeks NST Chief Complaint: est ob Lead Mason Tender Required: No Is patient in pain?: No Allergies No Known Allergies Allergy (Verified 05/22/18 08:42) Medications hydroxychloroquine 200 mg tablet 200 mg PO QDAY 11/13/17 [History Confirmed 05/22/18] vitamin,calcium,nekdgvqs-sthr-cjhmz acid tablet 1 tab PO QDAY 01/16/18 [...] safe at home: Yes additional social history: [employer] in [place] Patient works at [place] [employer] Pregancy History 4 Elective abortions Hx Para 2 Spontaneous abortions Past Pregnancies Del. DatName GA/WeeksOutcome Route [facility] LocaProviderFOB e ht en th ia tn Unknown 2003 Mary live birNSVD 0rvd6qjbXntait epidural Mansfiel an th - ful porfirio [...] without rheumatoid factor Additional Codes Non-Stress Test (38041) 05/22/18 0921 <Electronically signed by Veronica MARTINEZ> Date Veronica MARTINEZ Cosigner Signature: Date (if applicable) CC: RECONCILIATION MACHINE OPERATOR OFFICE VISIT Observed: 05/15/2018 Status: F Source: [place] REPORT 11:40 AM [facility] Women's Care [facility] [address] [place] [address] OFFICE VISIT Date of Service: 05/15/18 MR#: [id number] Acct: [id number] Name: WAYNE VILLAR Rep #: [id number] : 1980 Provider: TOMÁS Blakely Age/Sex: 37/F Location: [facility] Status: Signed Intake Vital Signs05/15/18 Height 5 ft 3 in 05/15/18 Weight: 282 lb 3 oz 05/15/18 Body Mass Index (BMI) 49.9 05/15/18 Blood Pressure 118/78 Intake Visit Reasons: 34 week ob - NST Lead Mason Tender Required: No Is patient in pain?: No Allergies No Known Allergies Allergy (Verified 05/15/18 10:34) Medications hydroxychloroquine 200 mg tablet 200 mg PO QDAY 11/13/17 [History Confirmed 05/15/18] vitamin,calcium,ntardcey-mxhf-qrnte acid tablet 1 tab PO QDAY 01/16/18 [...] safe at home: Yes additional social history: [employer] in [place] Patient works at [employer] Pregancy History 4 Elective abortions Hx Para 2 Spontaneous abortions Past Pregnancies Del. DatName GA/WeeksOutcome Route Bt SilvestregInamber Jj LgAnesthesDel LocaProviderFOB e ht en ia tn Unknown 2003 Mary live birNSVD 5vmp4beeFcobsh epidural Mansfiel an th - ful porfirio [...] Ef Gluco faced se 12/03/1272 lb 125/86 [place]up261 Work in 8 (+0 oz) e for [...] Trimester: third trimester Additional Codes Non-Stress Test (59178) 05/15/18 1140 <Electronically signed by Veronica MARTINEZ> Date Veronica MARTINEZ Cosigner Signature: Date (if applicable) CC: VENOUS DUPLEX LOWER Observed: 05/14/2018 Status: F Source: [place] EXTREMITY 10:48 AM [facility] REPOSITORY [facility] Cardiovascular Services [address] [place] [place] [address] Venous Duplex US, Unilateral 05/14/18 1002 MR#: [id number] Acct: [id number] Name: WAYNE VILLAR Rep #: [id number] : 1980 37 From: Sanket Zuñiga MD [...] Date Dictated: 05/14/18 1002 Date Transcribed: 05/14/181046 Resawyer: Signed RECONCILIATION MACHINE OPERATOR OFFICE VISIT Observed: 05/07/2018 Status: F Source: [place] REPORT 9:38 AM [facility] [address] [place] [address] OFFICE VISIT Date of Service: 05/07/18 MR#: [id number] Acct: [id number] Name: WAYNE VILLAR Rep #: [id number] : 1980 Provider: TOMÁS Blakely Age/Sex: 37/F Location: [facility] Status: Signed Intake Vital Signs05/07/18 Height 5 ft 3 in 05/07/18 Weight: 283 lb 05/07/18 Body Mass Index (BMI) 50.1 05/07/18 Blood Pressure 120/64 Intake Visit Reasons: 33 weeks NST Lead Mason Tender Required: No Is patient in pain?: No Allergies No Known Allergies Allergy (Verified 05/07/18 09:09) Medications hydroxychloroquine 200 mg tablet 200 mg PO QDAY 11/13/17 [History Confirmed 05/07/18] vitamin,calcium,myqqeuui-yolh-xowxp acid tablet 1 tab PO QDAY 01/16/18 [...] safe at home: Yes additional social history: [employer] in [place] Patient works at [place] [employer] Pregancy History 4 Elective abortions Hx Para 2 Spontaneous abortions Past Pregnancies Del. DatName GA/WeeksOutcome Route Bth WeigInfant GLabor LgAnesthesDel LocaProviderFOB e ht en th ia tn Unknown 2003 Mary live birNSVD 0kve9jfwAjqyrz epidural Mansfiel an th - ful porfirio [...] O09.523 PRR MISBAH 06/24/18 PC Arben Crawford Abner 2. BMI 50.0-59.9, adult Z68.43 growth us [...] Trimester: third trimester Additional Codes Non-Stress Test (16084) 05/07/18 0938 <Electronically signed by Veronica MARTINEZ> Date Veronica MARTINEZ Cosigner Signature: Date (if applicable) CC: OB LIMITED WITH Observed: 05/01/2018 Status: F Source: [place] [employer] 1:58 PM [facility] REPOSITORY [facility] Imaging Services [facility] [place] [address] OB Limited With Biometrics MR#: [id number] Acct: [id number] Name: WAYNE VILLAR Rep #: [id number] : 1980 F 37 From: Eddie Graham MD PCP: Care Physician, No Primary Status: REG CLI Study: OB Limited With Biometrics Date of Exam: 05/01/18 Exam# [id number] Ordering Dr: Radha Das MD STUDY: SECOND [...] No Primary Care Physician; Radha Das MD Resawyer: Signed RECONCILIATION MACHINE OPERATOR OFFICE VISIT Observed: 04/30/2018 Status: F Source: [place] REPORT 10:25 AM [facility] [place] [address] [place] [address] OFFICE VISIT Date of Service: 04/30/18 MR#: [id number] Acct: [id number] Name: WAYNE VILLAR Rep #: [id number] : 1980 Provider: Radha Das MD Age/Sex: 37/F [place] [facility] Status: Signed Intake Vital Signs04/30/18 Height 5 ft 3 in 04/30/18 Weight: 282 lb 04/30/18 Body Mass Index (BMI) 49.9 04/30/18 Blood Pressure 124/68 H Intake Visit Reasons: 32 week ob Lead Mason Tender Required: No Is patient in pain?: No Allergies No Known Allergies Allergy (Verified 04/30/18 09:51) Medications hydroxychloroquine 200 mg tablet 200 mg PO QDAY 11/13/17 [History Confirmed 04/30/18] vitamin,calcium,vstrmltq-jgcn-pzqrd acid tablet 1 tab PO QDAY 01/16/18 [...] safe at home: Yes additional social history: [employer] in [employer] Patient works at [employer] Pregancy History 4 Elective abortions Hx Para 2 Spontaneous abortions Past Pregnancies Del. DatName GA/WeeksOutcome Route [facility] WeigInfant GLanikole LgAnesthesDel LocaProviderFOB e ht en ia tn Unknown 2003 Mary live birNSVD [id number] epidural Mansfiel an th - ful porfirio [...] MD Cosigner Signature: Date (if applicable) CC: RECONCILIATION MACHINE OPERATOR OFFICE VISIT Observed: 04/17/2018 Status: F Source: [place] REPORT 12:42 PM [facility] [address] [place] [address] OFFICE VISIT Date of Service: 04/17/18 MR#: [id number] Acct: [id number] Name: WAYNE VILLAR Rep #: [id number] : 1980 Provider: Radha Das MD Age/Sex: 37/F [place] [facility] Status: Signed Intake Vital Signs04/17/18 Height 5 ft 3 in 04/17/18 Weight: 281 lb 8 oz 04/17/18 Body Mass Index (BMI) 49.8 04/17/18 Blood Pressure 130/80 H Intake Visit Reasons: 30 weeks Lead Mason Tender Required: No Is patient in pain?: No Allergies No Known Allergies Allergy (Verified 04/17/18 12:22) Medications hydroxychloroquine 200 mg tablet 200 mg PO QDAY 11/13/17 [History Confirmed 04/17/18] vitamin,calcium,fikphbep-oedy-wgtku acid tablet 1 tab PO QDAY 01/16/18 [...] safe at home: Yes additional social history: [employer] in [place] Patient works at [employer] Pregancy History 4 Elective abortions Hx Para 2 Spontaneous abortions Past Pregnancies Del. DatName GA/WeeksOutcome Route [facility] LocaProviderFOB e ht en th ia tn Unknown 2003 Mary live birNSVD 8bly9bocOdqzzp epidural Mansfiel an th - ful porfirio [...] 04/03/2018 Status: F Source: [place] 12:56 PM [facility] REPOSITORY TYPE CODE TESTS RESULT OUT OF [...] S Performed By: #### L100.0100, B101.7450 #### [facility] [address] [place], [address] TYPE AND SCREEN Collected: 04/03/2018 Status: F Source: [place] 12:56 PM [facility] REPOSITORY Order Comment: Reason for Type AND Screen/Red Cells: TYPE CODE TESTS RESULT OUT OF RANGE REFERENCE UNITS LAB B10.0800 A Normal BLOOD TYPE GEL NEGATIVE LAB B100.4000 Normal Antibody NEGATIVE Screen Performed By: #### L100.0100, B101.7450 #### [facility] [address] [place], [address] GLUCOSE CHALLENGE GEST Collected: 04/03/2018 Status: F Source: ANNE 1H 50G 12:56 PM [facility] REPOSITORY TYPE CODE TESTS RESULT OUT OF RANGE REFERENCE UNITS LAB L501.0250 70-140 mg/dL Normal GLU GEST 120 50g 1H Performed By: #### L501.0250 #### [facility] [address] [place], [address] RECONCILIATION MACHINE OPERATOR OFFICE VISIT Observed: 04/03/2018 Status: F Source: [place] REPORT 12:31 PM [facility] REPOSITORY [facility] [address] [place] [address] OFFICE VISIT Date of Service: 04/03/18 MR#: [id number] Acct: [id number] Name: WAYNE VILLAR Rep #: [id number] : 1980 Provider: Radha Das MD Age/Sex: 37/F Location: [facility] Status: Signed Intake Vital Signs04/03/18 Height 5 ft 3 in 04/03/18 Weight: 280 lb 6 oz 04/03/18 Body Mass Index (BMI) 49.6 04/03/18 Blood Pressure 133/78 H Intake Visit Reasons: 28 weeks Is patient in pain?: No Allergies No Known Allergies Allergy (Verified 04/03/18 12:05) Medications hydroxychloroquine 200 mg tablet 200 mg PO QDAY 11/13/17 [History Confirmed 04/03/18] vitamin,calcium,sxbwqqgb-hcna-eazjk acid tablet 1 tab PO QDAY 01/16/18 [...] safe at home: Yes additional social history: [employer] in [place] Patient works at [employer] Pregancy History 4 Elective abortions Hx Para 2 Spontaneous abortions Past Pregnancies Del. DatName GA/WeeksOutcome Route [facility] LocaProviderFOB e ht en ia tn Unknown 2003 Mary live birNSVD 0rmo7adrCaymvq epidural Mansfiel an - [facility] porfirio d Womens l term Care HPI [...] Route Admin Location Lot Number Expiration Date FORMERLY NAMED [facility] Back Strip Machine Operator 1,500 unit IM right gluteal [id number] 10/25/19 8657-9963-85 [employer] Results [id number] Office Urine Glucose Negative Last Edit by Mya Cheung on 04/03/18 12:24 Office Urine Protein Negative Last Edit by Mya Cheung on 04/03/18 12:24 Immunizations Boostrix Tdap Performing Provider: Radha Das MD Administered by: Mya Cheung on 04/03/18 12:07 Dose Route Admin Location Lot Number Expiration Date FORMERLY NAMED [facility] Back Strip Machine Operator 0.5 mL IM Right Deltoid [id number] 05/30/19 63807-671-69 SANOFI-PASTEUR VIS Given Date VIS Publication Date [...] MD Cosigner Signature: Date (if applicable) CC: RECONCILIATION MACHINE OPERATOR OFFICE VISIT Observed: 03/14/2018 Status: F Source: [place] REPORT 5:56 AM [facility] [address] [place] [address] OFFICE VISIT Date of Service: 03/13/18 MR#: [id number] Acct: [id number] Name: WAYNE VILLAR Rep #: [id number] : 1980 Provider: Radha Das MD Age/Sex: 37/F Location: [facility] Status: Signed Intake Vital Signs03/13/18 Height 5 ft 3 in 03/13/18 Weight: 281 lb 03/13/18 Body Mass Index (BMI) 49.7 03/13/18 Blood Pressure 123/70 Intake Visit Reasons: 24 weeks Lead Mason Tender Required: No Is patient in pain?: No Allergies No Known Allergies Allergy (Verified 03/13/18 12:03) Medications hydroxychloroquine 200 mg tablet 200 mg PO QDAY 11/13/17 [History Confirmed 03/13/18] vitamin,calcium,drdtxmuo-lqvh-doece acid tablet 1 tab PO QDAY 01/16/18 [...] safe at home: Yes additional social history: [employer] in [place] Patient works at [employer] Pregancy History 4 Elective abortions Hx Para 2 Spontaneous abortions Past Pregnancies Del. DatName GA/WeeksOutcome Route [facility] LgAnesthesDel LocaProviderFOB e ht en ia tn Unknown 2003 Mary live birNSVD 8tix8zzeTsowwm epidural Mansfiel an th - ful porfirio [...] Ef Gluco faced se 12/03/1272 lb 125/86 Bzzawcf944 Work in 8 (+0 oz) e for [...] MD Cosigner Signature: Date (if applicable) CC: RECONCILIATION MACHINE OPERATOR OFFICE VISIT Observed: 02/13/2018 Status: F Source: [place] REPORT 1:43 PM [facility] [address] [place] [address] OFFICE VISIT Date of Service: 02/13/18 MR#: [id number] Acct: [id number] Name: WAYNE VILLAR Rep #: [id number] : 1980 Provider: Radha Das MD Age/Sex: 37/F Location: [facility] Status: Signed Intake Vital Signs02/13/18 Height 5 ft 3 in 02/13/18 Weight: 273 lb 6 oz 02/13/18 Body Mass Index (BMI) 48.4 02/13/18 Blood Pressure 119/77 Intake Visit Reasons: 20 weeks Lead Mason Tender Required: No Is patient in pain?: No Allergies No Known Allergies Allergy (Verified 02/13/18 13:23) Medications hydroxychloroquine 200 mg tablet 200 mg PO QDAY 11/13/17 [History Confirmed 02/13/18] vitamin,calcium,uvtcjeot-xdsd-aawkh acid tablet 1 tab PO QDAY 01/16/18 [...] safe at home: Yes additional social history: [employer] in [place] Patient works at [employer] Pregancy History 4 Elective abortions Hx Para 2 Spontaneous abortions Past Pregnancies Del. DatName GA/WeeksOutcome Route [facility] LgAnesthesDel LocaProviderFOB e ht en ia tn Unknown 2003 Mary live birNSVD 7ofo5nloLsurok epidural Mansfiel an - [facility] porfirio d Womens l term Care HPI [...] Ef Gluco faced se 12/03/1272 lb 125/86 Ectpgti287 Work in 8 e for br 11 [...] ANATOMY SCAN Observed: 02/06/2018 Status: F Source: [place] 12:22 PM [facility] REPOSITORY [facility] Imaging Services [facility] [place] [address] [place] [address] OB Anatomy Scan MR#: [id number] Acct: [id number] Name: WAYNE VILLAR Rep #: [id number] : 1980 F 37 From: Florentin Salomon MD PCP: Care Physician, No Primary Status: REG CLI Study: OB Anatomy Scan Date of Exam: 02/06/18 Exam# [id number] Ordering Dr: Radha Das MD STUDY: SECOND [...] No Primary Care Physician; Radha Das MD Resawyer: Signed RECONCILIATION MACHINE OPERATOR OFFICE VISIT Observed: 01/16/2018 Status: F Source: [place] REPORT 2:06 PM [facility] REPOSITORY [facility] [address] [place] [address] OFFICE VISIT Date of Service: 01/16/18 MR#: [id number] Acct: [id number] Name: WAYNE VILLAR Rep #: [id number] : 1980 Provider: Radha Das MD Age/Sex: 37/F Location: [facility] Status: Signed Intake Vital Signs01/16/18 Height 5 ft 3 in 01/16/18 Weight: 270 lb 01/16/18 Body Mass Index (BMI) 47.8 01/16/18 Blood Pressure 120/79 Intake Visit Reasons: 16 weeks Chief Complaint: est ob Lead Mason Tender Required: No Is patient in pain?: No Allergies No Known Allergies Allergy (Verified 01/16/18 13:55) Medications hydroxychloroquine 200 mg tablet 200 mg PO QDAY 11/13/17 [History Confirmed 12/17/17] vitamin,calcium,aypigdez-wncl-woyjm acid tablet 1 tab PO QDAY 01/16/18 [...] safe at home: Yes additional social history: [employer] in [place] Patient works at [employer] Pregancy History 4 Elective abortions Hx Para 2 Spontaneous abortions Past Pregnancies Del. DatName GA/WeeksOutcome Route Bth WeigInfant GLanikole LgAnesthesDel LocaProviderFOB e ht en th ia tn Unknown 2003 Mary live birNSVD 4xwa6gkmJnpbba epidural Mansfiel an th - ful porfirio [...] Status: F Source: [place] PROCEDURE 4:20 PM [facility] REPOSITORY Order Comment: Test(s) Ordered: INFORMASEQ WITH X Y ANALYSIS TYPE CODE TESTS RESULT OUT OF RANGE REFERENCE UNITS LAB L801.1541 Normal [facility] TEST Result Comment: TEST RESULT UNITS [...] developed and the performance characteristics determined by [facility]. It has not been cleared or approved by the U.S. Food and Drug Administration. References Chela S, Godfrey S, Whit H, et al. Clinical Laboratory Experiencewith Noninvasive Testing: Update on Clinically Relevant Metrics. ISPD 2014 plastic fixture builder Padmini DW, Russel GAMBOA, Donna KingD, et [...] November; 15(5):395-398. Internal correlation data on file. [employer]st[employer]nec[employer] Committee on Genetics. Noninvasive testing for aneuploidy. Committee Opinion No. 545. Obstet Gynecol 2012 Jun; 120(6):5211-2176. Lezu365. Analytical Validation of the verifi(R) Test: Enhanced Test Performance for Detecting Trisomies 21, 18, 13 and the Option for Classification of Sex Chromosome Status. [facility]: Lezu365; 2012. Director Review Laboratory Directors: Mark Richards, PhD, [facility] Caitie Reyes, PhD, [facility] Lowell Leary, PhD, [facility] Pelon Monzon, PhD, [facility] Aylin Mckeon, PhD, [facility] Nisha Mcfadden, PhD, [facility] TESTING PERFORMED AT [facility]. ORIGINAL REPORT ON FILE IN LAB CONTAINS ADDITIONAL TEST SITE INFORMATION. Performed By: #### L801.1541 #### [facility] [address] [place], [address] RECONCILIATION MACHINE OPERATOR OFFICE VISIT Observed: 12/17/2017 Status: F Source: [place] REPORT 4:06 PM [facility] REPOSITORY [facility] [address] [place] [address] OFFICE VISIT Date of Service: 12/17/17 MR#: [id number] Acct: [id number] Name: WAYNE VILLAR Rep #: [id number] : 1980 Provider: TOMÁS Blakely Age/Sex: 37/F Location: [facility] Status: Signed Intake Vital Signs12/17/17 Height 5 ft 3 in 12/17/17 Weight: 270 lb 8 oz 12/17/17 Body Mass Index (BMI) 47.9 12/17/17 Blood Pressure 129/78 Intake Visit Reasons: 12 WEEK OB Chief Complaint: est ob Lead Mason Tender Required: No Is patient in pain?: No [...] safe at home: Yes additional social history: [employer] in [place] Patient works at [employer] Pregancy History 4 Elective abortions Hx Para 2 Spontaneous abortions Past Pregnancies Del. DatName GA/WeeksOutcome Route Bt WeigInfant GLabor LgAnesthesDel LocaProviderFOB e ht en ia tn Unknown 2003 Mary live birNSVD 0mzc2xnqBewwnf epidural Mansfiel an - [facility] porfirio d Womens l term Care HPI [...] Ef Gluco faced se 12/03/1272 lb 125/86 Bcbbuni436 Work in 8 e for br 11 [...] MARTINEZ Cosigner Signature: Date (if applicable) CC: RECONCILIATION MACHINE OPERATOR OFFICE VISIT Observed: 12/03/2017 Status: F Source: ANNE REPORT 11:44 AM [facility] [address] [place] [address] OFFICE VISIT Date of Service: 12/03/17 MR#: [id number] Acct: [id number] Name: WAYNE VILLAR Rep #: [id number] : 1980 Provider: TOMÁS Blakely Age/Sex: 37/F Location: [facility] Status: Signed Intake Vital Signs12/03/17 Height 5 ft 3 in 12/03/17 Weight: 273 lb 12/03/17 Body Mass Index (BMI) 48.3 12/03/17 Blood Pressure 125/86 Intake Visit Reasons: 11 weeks-Brown discharge Lead Mason Tender Required: No Accompanied by: Is patient in [...] safe at home: Yes additional social history: [employer] in [place] Patient works at [employer] Pregancy History 4 Elective abortions Hx Para 2 Spontaneous abortions Past Pregnancies Del. DatName GA/WeeksOutcome Route [facility] WeigIncharlyt Parviz LgAnesthesDel LocaProviderFOB e ht en ia tn Unknown 2003 Mary live birNSVD 7kts0ovqPoawol epidural Mansfiel an th - ful porfirio d Womens l term Care HPI 11 weeks-[facility] discharge: Details: WAYNE VILLAR is a 37 [...] Ef Gluco faced se 12/03/1272 lb 125/86 Jepdjva942 Work in 8 e for br 11 [...] recent intercourse prior to spotting. Veronica Reddy, SALES AND SERVICE CONSULTANT-C on 12/03/17 ACOG First Trimester First Trimester: [...] 12/03/2017 Status: F Source: ANNE 11:39 AM [facility] REPOSITORY TYPE CODE TESTS RESULT OUT OF [...] 2.04 Performed By: #### L100.0100, B101.7450 #### [facility] [address] [place], [place], [address] TYPE AND SCREEN Collected: 12/03/2017 Status: F Source: [place] 11:39 AM [facility] REPOSITORY Order Comment: Reason for Type AND Screen/Red Cells: TYPE CODE TESTS RESULT OUT OF RANGE REFERENCE UNITS LAB B10.0800 A Normal BLOOD TYPE GEL NEGATIVE LAB B100.4000 Normal Antibody NEGATIVE Screen Performed By: #### L100.0100, B101.7450 #### [facility] [address] [facility] [address] RUBELLA IGG Collected: 12/03/2017 Status: F Source: [place] 11:39 AM [facility] REPOSITORY TYPE CODE TESTS RESULT OUT OF RANGE REFERENCE UNITS LAB L509.4000 IU/mL Normal Rubella IgG 202.1 Result Comment: Antibody results Interpretation of Immune Status < 5 IU/ml Presumed Non-immune 5 - < 10 IU/ml Equivocal > or = 10 IU/ml Presumed Immune Performed By: #### L509.4000, L3890.6005, L700.5000 #### [facility] [address] [place] [address]. [place] [id number] #### L3100.0390 #### [facility] (refer to report for specific site) refer to report for address and phone number HIV - [facility] Collected: 12/03/2017 Status: F Source: [place] 11:39 AM [facility] REPOSITORY TYPE CODE TESTS RESULT OUT OF RANGE REFERENCE UNITS LAB L3890.6005 Nonreactive Normal HIV - [facility] Non-Reactive Performed By: #### L509.4000, L3890.6005, L700.5000 #### [facility] [facility]. [place], [place], [address] #### L3100.0390 #### [facility] (refer to report for specific site) refer to report for address and phone number HEPATITIS B SURFACE Collected: 12/03/2017 Status: F Source: [place] AG 11:39 AM [facility] REPOSITORY TYPE CODE TESTS RESULT OUT OF RANGE REFERENCE UNITS LAB L3100.0400 Negative Normal HB Negative SURF AG Result Comment: Performed at: [facility] [id number] [place] Insulator Helper: Cade Meeks PhD, Phone: [phone] Performed By: #### L509.4000, L3890.6005, L700.5000 #### [facility] [address] [place], [place], [address] #### L3100.0390 #### [facility] (refer to report for specific site) refer to report for address and phone number RAPID PLASMIN REAGIN Collected: 12/03/2017 Status: F Source: ANNE (RPR) 11:39 AM [facility] REPOSITORY TYPE CODE TESTS RESULT OUT OF REFERENCE UNITS RANGE LAB L700.5000 NONREACTIVE NONREACTIVE Normal RPR Performed By: #### L509.4000, L3890.6005, L700.5000 #### [facility] [facility] [place], [place], [address] #### L3100.0390 #### [facility] (refer to report for specific site) refer to report for address and phone number CT/NG [facility] BY PCR Collected: 11/13/2017 Status: F Source: ANNE 6:08 PM [facility] REPOSITORY TYPE CODE TESTS RESULT OUT OF RANGE REFERENCE UNITS LAB L8200.2100 Negative Normal Chlam Negative Trac PCR LAB L8200.2200 Negative Normal NG by Negative PCR Performed By: #### L8200.2000 #### [facility] [address] [place], [place] [address]. [place], [place], [id number] Observed: 11/13/2017 Status: F Source: ANNE CULTURE, URINE 6:08 PM [facility] REPOSITORY Urine Culture Below infection level. Probable skin contaminants. ORGANISM 1: Mixed Gram Positive Organisms [place] Count 1000-10,000 Performed By: #### M100.0650 #### [facility] [address] [place], [place] [address]. [place], [place], [address] RECONCILIATION MACHINE OPERATOR OFFICE VISIT Observed: 11/13/2017 Status: F Source: ANNE REPORT 9:58 AM [facility] REPOSITORY [facility] [place] [address] [place], [place] [address] OFFICE VISIT Date of Service: 11/13/17 MR#: [id number] Acct: [id number] Name: WAYNE VILLAR Rep #: [id number] : 1980 Provider: Radha Das MD Age/Sex: 37/F Location: [facility] Status: Signed Intake Vital Signs11/13/17 Height 5 ft 3 in 11/13/17 Weight: 276 lb 2 oz 11/13/17 Body Mass Index (BMI) 48.9 11/13/17 Blood Pressure 120/82 Intake Visit Reasons: New OB LMP 09/17/17 Chief Complaint: NEW OB Lead Mason Tender Required: No Is patient in pain?: No [...] safe at home: Yes additional social history: [employer] in [place] Patient works at [employer] Pregancy History 4 Elective abortions Hx Para 2 Spontaneous abortions Past Pregnancies Del. DatName [place]/WeeksOutcome Route [facility] LgAnesthesDel LocaProviderFOB e ht en ia tn Unknown 2003 [address] 0lch0wloZmkjnf epidural Mansfiel an th - ful porfirio [...] Pulmonary (e.g.,TB,Asthma), Seasonal allergies, Drug/latex allergies/reactions, Breast, Calibration Engineer surgery, Operations/hospitalizations, Anesthetic complications, History of abnormal [...] appearing, comfortable, no acute distress Orientation: alert [facility] Head: normal to inspection, atraumatic, normocephalic Ears: [...] Status: F Source: ANNE 16/18,45 9:30 AM [facility] REPOSITORY Order Comment: CYTOLOGY INFORMATION: - CLINICAL INFORMATION: HYSTERECTOMY - DATE LMP/MENOPAUSE: LMP - COLLECTION VIAL: Thin Prep Vial - BEHAVIORAL PEDIATRICIAN SOURCE: CERVICAL - COLLECTION TECHNIQUE: CX BROOM ONLY Specimen Comment: [id number] Specimen Comment: No. of containers..01 ThinPrep Vial TYPE CODE TESTS RESULT OUT OF RANGE REFERENCE UNITS LAB L7400.0800 . Normal DIAGN Comment Result Comment: NEGATIVE FOR INTRAEPITHELIAL LESION AND MALIGNANCY. LAB L7400.0900 . Normal ADEQ Comment Result Comment: Satisfactory for evaluation. Endocervical and/or squamous metaplastic cells (endocervical component) are present. LAB L7400.1400 . Normal PERFORM Comment Result Comment: Holden Cronin, [employer] (ASCP) LAB L7400.2575 . Normal TEST METHOD [...] 18,45 Negative Result Comment: Performed at: - [facility] [id number] [employer] Helper: Amanda Gomes MD, Phone: [phone] Performed at: =G - [facility] [id number] [employer] Helper: Amanda Gomes MD, Phone: [phone] Performed By: #### L7400.0280 #### [facility] (refer to report for specific site) refer to report for address and phone number CBC W/ AUTO DIFF Collected: 09/26/2017 Status: F Source: [facility] 5:12 PM [facility] REPOSITORY TYPE CODE TESTS RESULT OUT OF RANGE REFERENCE UNITS LAB 63118236(L 3.6-11.0 E3/mcL OINC) Normal WBC 7.5 LAB 92292041(L 3.90-5.40 E6/mcL OINC) Normal RBC 4.83 LAB 79237006(L 12.0-16.0 G/DL OINC) Normal Hgb 14.2 LAB 86684965(L 36.0-48.0 % OINC) Normal Hct 41.5 LAB 77242860(L 11.5-14.5 % OINC) Normal RDW 13.7 LAB 13980842(L 27.0-31.0 pg OINC) Normal MCH 29.3 LAB 59523043(L 33.0-37.0 G/DL OINC) Normal MCHC 34.2 LAB 22331059(L 78.0-100.0 fL OINC) Normal MCV 85.8 LAB 60239005(L 7.4-11.0 fL OINC) Low MPV 7.3 LAB 30497343(L 130-400 E3/mcL OINC) Normal Platelet 275 Performed By: #### [id number] #### [facility] [place] [address] AUTO DIFF Collected: 09/26/2017 Status: F Source: [facility] 5:12 PM [facility] REPOSITORY Order Comment: Order Added by Discern Expert. TYPE CODE TESTS RESULT OUT OF RANGE REFERENCE UNITS LAB 33134386(L 37.0-75.0 % OINC) Normal Neutro Auto 55.4 LAB 41610626(L 20.0-55.0 % OINC) Normal Lymph Auto 34.4 LAB 98042570(L 0.0-10.0 % OINC) Normal Hodgeman Auto 7.5 LAB 56487191(L 0.0-11.0 % OINC) Normal Eos Auto 2.3 LAB 11020558(L 0.0-2.0 % OINC) Normal Basophil Auto 0.4 LAB 72637364(L 1.4-6.5 E3/mcL OINC) Normal Neutro 4.2 Absolute LAB 19625321(L 1.2-3.4 E3/mcL OINC) Normal Lymph Absolute 2.6 LAB 76745984(L 0.0-0.7 E3/mcL OINC) Normal Hodgeman Absolute 0.6 LAB 11597575(L 0.0-0.7 E3/mcL OINC) Normal Eos Absolute 0.2 LAB 74004005(L 0.0-0.2 E3/mcL OINC) Normal Basophil 0.0 Absolute Performed By: #### [id number] #### [facility] [place] [address] LAB MISCELLANEOUS Collected: 09/26/2017 Status: F Source: [facility] 5:12 [facility] REPOSITORY TYPE CODE TESTS RESULT OUT OF RANGE REFERENCE UNITS LAB [id number](LO INC) Normal Test Name quant TB gold LAB [id number](LO INC) Normal Status See Ref Lab Report Performed By: #### [id number] #### PANCHITO Send Outs Subsection [address] [place] [address] SED RATE AUTOMATED Collected: 09/26/2017 Status: F Source: [facility] 5:12 PM [facility] REPOSITORY TYPE CODE TESTS RESULT OUT OF RANGE REFERENCE UNITS LAB [id number](L mm/hr OINC) Sed Normal Rate Automated 13 Result Comment: AGE-SPECIFIC REFERENCE RANGES FOR SEDIMENTATION RATE AUTOMATED REFERENCE RANGE - MM/HR AGE MEN WOMEN 0-2 0-2 - PUBERTY 3-13 3-13 PUBERTY - 50 YRS 0-15 0-20 > 50 YRS 0-20 0-30 Performed By: #### [id number] #### PANCHITO Hematology Manual Subsection [facility] [place] [id number] CMP Collected: 09/26/2017 Status: F Source: [facility] 5:12 PM [facility] REPOSITORY TYPE CODE TESTS RESULT OUT OF RANGE REFERENCE UNITS LAB 24051032(L 70-99 mg/dL OINC) Glucose Normal Lvl 79 LAB 50727673(L 7-18 mg/dL OINC) BUN Normal 11 LAB 8558019(LO 0.6-1.3 mg/dL INC) Normal Creatinine 0.6 LAB 78019381(L 8.4-10.2 mg/dL OINC) Calcium Normal Lvl 9.3 LAB 62592964(L 136-145 mEq/L OINC) Sodium Normal Lvl 140 LAB 46701277(L 3.5-5.1 mEq/L OINC) Normal Potassium Lvl 3.6 LAB 31348447(L 98-107 mEq/L OINC) Chloride Normal 106 LAB 21107605(L 24.0-30.0 mEq/L OINC) CO2 Normal 27.2 LAB 78534802(L 42-121 Int._Unit/ OINC) L Alk Phos Normal 79 LAB 81802182(L 0.2-1.0 mg/dL OINC) High Bili Total 1.1 LAB 35353204(L 3.2-5.0 G/DL OINC) Albumin Normal Lvl 4.4 LAB 02075209(L 6.4-8.3 G/DL OINC) Total Normal Protein 7.6 LAB 03832255(L 10-40 Int._Unit/ OINC) High L ALT 69 LAB 70149273(L 10-42 Int._Unit/ OINC) L AST Normal 42 LAB 58125488(L 5.4-30.0 ratio OINC) Normal BUN/Creat Ratio 18.3 LAB 01603422(L 2.0-4.0 G/DL OINC) Globulin Normal 3.2 LAB 57387413(L 1.1-1.9 ratio OINC) A/G Normal Ratio 1.4 Performed By: #### [id number] #### PANCHITO [employer] [facility] [place] [address] EGFR Collected: 09/26/2017 Status: F Source: [facility] 5:12 PM [facility] REPOSITORY Order Comment: Order added by Discern Expert. TYPE CODE TESTS RESULT OUT OF RANGE REFERENCE UNITS LAB 72257571(LO mL/min/1.73 INC) m2 Normal eGFR >60 LAB 92845179(LO mL/min/1.73 INC) m2 Normal eGFR AA >60 Performed By: #### [id number] #### PANCHITO [employer] [address] [place] [address] CRP Collected: 09/26/2017 Status: F Source: [facility] 5:12 PM [facility] REPOSITORY TYPE CODE TESTS RESULT OUT OF RANGE REFERENCE UNITS LAB 76552805(LO 0.00-0.75 mg/dL INC) Normal CRP <0.50 Performed By: #### [id number] #### PANCHITO [employer] [facility] [place] 8951005 ALLERGIES ALLERGIES DATE TYPE / CODE NAME / CODE REACTION SEVERITY SOURCE 06/21/2018 Drug No Known Unknown [place] [facility] Allergy/416 Allergies/A25393 Hospital 264862(SNOM 0388(RXNORM) Repository ED CT) Drug/342455 No Known [facility] 003(SNOMED Allergies [facility] CT) System Repository ENCOUNTERS ENCOUNTERS ADMIT/DISCHARGE ACCOUNT ADMITTING ENCOUNTER LOCATION SOURCE NUMBER CLASS 06/21/2018/06/24/20 [id number] [place] Inpatient Anne Garcia Encounter [facility] ing:WPRoom: Repository LB303Syn: 1 06/21/2018 [id number] [facility] Ambulatory BMSBuilding:Dion Garcia [place].CF.[facility] Repository 06/21/2018 [id number] Marcanthony, Ambulatory BMSBuilding:B Morleysukh Garcia MS.CF.[facility] Hospital Repository 06/21/2018 [id number] Marccastilloony, Ambulatory BMSBuilding:Dion Garcia MS.CF.[facility] Hospital Repository 06/21/2018 [id number] Marcanthony, Ambulatory BMSBuilding:Dion Garcia MS.CF.[facility] Hospital Repository 06/17/2018/06/17/20 [id number] Ambulatory BMSBuilding:B Anne 18 MS.[facility] Hospital Repository 06/12/2018/06/12/20 [id number] Ambulatory BMSBuilding:B Anne 18 MS.[facility] Repository 06/08/2018 [id number] Ambulatory [facility] HospitalBuild Hospital ing:US Repository 06/05/2018/06/05/20 [id number] Ambulatory BMSBuilding:B Anne 18 MS.[facility] Repository 06/01/2018 [id number] Ambulatory [facility] HospitalBuild Hospital ing:LABSPEC Repository 05/27/2018/05/27/20 [id number] Ambulatory BMSBuilding:B [place] 18 MS.[facility] Hospital Repository 05/22/2018/05/22/20 [id number] Ambulatory BMSBuilding:B [place] 18 MS.[facility] Hospital Repository 05/15/2018/05/15/20 [id number] Ambulatory BMSBuilding:B Anne 18 MS.[facility] Hospital Repository 05/14/2018 [id number] Ambulatory BMSBuilding:B Anne MS.CF.[facility] Hospital Repository 05/14/2018 [id number] Ambulatory [facility] HospitalBuild Hospital ing:[facility]S Repository 05/07/2018/05/07/20 [id number] Ambulatory BMSBuilding:B [place] 18 MS.[facility] Hospital Repository 05/01/2018 [id number] Ambulatory [facility] HospitalBuild Hospital ing:US Repository 04/30/2018/04/30/20 [id number] Ambulatory BMSBuilding:B Anne 18 MS.[facility] Hospital Repository 04/17/2018/04/17/20 [id number] Ambulatory BMSBuilding:B Anne 18 MS.[facility] Hospital Repository 04/03/2018 [id number] [facility] Repository 04/03/2018/04/03/20 [id number] Ambulatory BMSBuilding:B Anne 18 MS.[facility] Hospital Repository 03/13/2018/03/13/20 [id number] Ambulatory BMSBuilding:B [place] 18 MS.[facility] Hospital Repository 02/13/2018/02/14/20 [id number] Ambulatory BMSBuilding:B Anne 18 MS.[facility] Repository 02/06/2018 [id number] Ambulatory [facility] Hospitalild Hospital ing:OPUS Repository 01/16/2018/01/17/20 [id number] Ambulatory BMSBuilding:B Anne 18 MS.[facility] Hospital Repository 01/09/2018 [id number] Ambulatory BMSBuilding:B [place] MS.[facility] Hospital Repository 12/17/2017 [id number] Ambulatory [facility] HospitalBuild Hospital ing:LAB Repository 12/17/2017/12/18/19 [id number] Ambulatory BMSBuilding:B [place] 18 MS.[facility] Hospital Repository 12/12/2017 [id number] Ambulatory BMSBuilding:B Anne MS.[facility] Hospital Repository 12/03/2017 [id number] Ambulatory [facility] HospitalBuild Hospital ing:POLAB3 Repository 12/03/2017/12/04/19 [id number] Ambulatory BMSBuilding:B [place] 18 MS.[facility] Hospital Repository 11/13/2017 [id number] Ambulatory [facility] HospitalBuild Hospital ing:LABSPEC Repository 11/13/2017/11/14/19 [id number] Ambulatory BMSBuilding:B Anne 18 MS.[facility] Hospital Repository 09/26/2017/09/27/19 [id number] [place], Ambulatory [address] ing:SH.[facility] Repository PAYERS PAYERS ENCOUNTER GUARANTOR PAYER SUBSCRIBER SOURCE 06/21/2018 FORREST [id number] Primary FORREST HICKSDOB: [place] [address], Insurance:ANTHEMPolic [id number] [place] [address]Aqe: y Number: [facility] [id number] Repository () romeo Date:9059-23-91PT [address], [place] [address]OV: 06/21/2018 Secondary NOT GIVENUNK [place] Insurance:SELF PAY Community [facility]: Effective Repository Date:2018-06-21 06/21/2018 FORREST [id number] Primary FORREST HICKSDOB: [place] [address], Insurance:ANTHEMPolic [id number] [facility] [place] [address]Nvr: y Number: [facility] [id number] Repository () [place] Date:0541-53-79HK [address], [place] [address]AA: 06/21/2018 Secondary NOT GIVENUNK [place] Insurance:SELF PAY Community [facility] Number: Effective Repository Date:2018-06-21 06/21/2018 FORREST [id number] Primary FORREST HICKSDOB: [place] [address], Insurance:ANTHEMPolic [id number] [facility] [place] [address]Bxy: y Number: [facility] [id number] Repository () [place] Date:1237-73-68TH [address]QBQWFVN, [place] [address]PE: 06/21/2018 Secondary NOT GIVENUNK [place] Insurance:SELF PAY Community [facility] Number: Effective Repository Date:2018-06-21 06/21/2018 FORREST [id number] Primary FORREST HICKSDOB: [place] [address], Insurance:ANTHEMPolic [id number] [facility] [place] [address]Ylr: y Number: [facility] [id number] Repository () [place] Date:3092-79-07FU [address], [place] [address]AH: 06/21/2018 Secondary NOT GIVENUNK [place] Insurance:SELF PAY Community [facility] Hospital Number: Effective Repository Date:2018-06-21 06/21/2018 FORREST [id number] Primary FORREST HICKSDOB: [place] [address], Insurance:ANTHEMPolic [id number] [facility] [place] [address]Jog: y Number: [facility] [id number] Repository () [place] Date:0221-20-87BJ [address]Z[place], [place] [address]KI: 06/21/2018 Secondary NOT GIVENUNK [place] Insurance:SELF PAY Community [facility] Number: Effective Repository Date:2018-06-21 06/17/2018 FORREST [id number] Primary FORREST HICKSDOB: [place] [address], Insurance:ANTHEMPolic [id number] [facility] [place] [address]Thm: y Number: [facility] [id number] Repository () [place] Date:4459-30-59EC [address], [place] [address]NT: 06/17/2018 Secondary NOT GIVENUNK [place] Insurance:SELF PAY Community [facility] Number: Effective Repository Date:2018-06-17 06/12/2018 FORREST [id number] Primary FORREST HICKSDOB: [place] [address], Insurance:ANTHEMPolic [id number] [facility] [place] [address]Irp: y Number: [facility] [id number] Repository () [place] Date:8435-48-61DV [address]FEFRFP, [place] [address]HV: 06/12/2018 Secondary NOT GIVENUNK [place] Insurance:SELF PAY Community [facility] Number: Effective Repository Date:2018-04-30 06/08/2018 FORREST [id number] Primary FORREST HICKSDOB: [place] [address], Insurance:ANTHEMPolic [id number] [facility] [place] [address]Yaw: y Number: [facility] [id number] Repository () [place] Date:5568-25-79KF [address]OBBVNDMNY N[place]VAEZ [address]MT: 06/08/2018 Secondary NOT GIVENUNK [place] Insurance:SELF PAY [facility] Number: Effective Repository Date:2018-06-05 06/05/2018 FORRESTTAJ [id number] Primary FORREST HICKSDOB: [place] Insurance:ANTHEMPolic [id number] [place] Number: Hospital [address]Ldy: (419) [id number] Repository [phone] () [place] Date:4570-14-77GZ [address] [place] [address]PC: 06/05/2018 Secondary NOT GIVENUNK Anne Insurance:SELF PAY [facility] Number: Effective Repository Date:2018-04-30 06/01/2018 FORREST [id number] Primary FORREST HICKSDOB: Anne [place] Insurance:ANTHEMPolic [id number] [facility] [place] Number: Hospital [address]Wsi: (419) [id number] Repository [phone] () [place] Date:1873-33-14RF [address] [place] [address]IU: 06/01/2018 Secondary NOT GIVENUNK [place] Insurance:SELF PAY [facility] Number: Effective Repository Date:2018-06-01 05/27/2018 FORREST [id number] Primary FORREST HICKSDOB: [place] Insurance:ANTHEMPolic [id number] [facility] Number: Hospital [address]Tgq: (419) [id number] Repository [phone] () [place] Date:7567-64-08YC [address] [place] [address]IF: 05/27/2018 Secondary NOT GIVENUNK [place] Insurance:SELF PAY [facility] Hospital Number: Effective Repository Date:2018-04-30 05/22/2018 FORREST [id number] Primary FORREST HICKSDOB: [place] Insurance:ANTHEMPolic [id number] [facility] [place] [facility] Number: Hospital [address]Wdd: (419) [id number] Repository [phone] () [place] Date:8559-30-14HV [address] [place] [address]67[address]GG: 05/22/2018 Secondary NOT GIVENUNK [place] Insurance:SELF PAY [facility] Hospital Number: Effective Repository Date:2018-05-05 05/15/2018 FORREST [id number] Primary FORREST HICKSDOB: [place] Insurance:ANTHEMPolic [id number] [place] Number: [place] [address]Tel: (419) [id number] Repository [phone] () [place] Date:9852-66-25FV [address] [place] [address] 365[address]AT: 05/15/2018 Secondary NOT GIVENUNK Anne Insurance:SELF PAY [facility] Hospital Number: Effective Repository Date:2018-04-30 05/14/2018 FORREST [id number] Primary FORREST HICKSDOB: [place] Insurance:ANTHEMPolic [id number] [facility] [place] Number: [place] [address]Tel: (419) [id number] Repository [phone] () [place] Date:0874-12-46ER [address] [place] [address]JD: 05/14/2018 Secondary NOT GIVENUNK Anne Insurance:SELF PAY Community [facility] Hospital Number: Effective Repository Date:2018-05-14 05/14/2018 FORREST [id number] Primary FORREST HICKSDOB: Anne [place] Insurance:ANTHEMPolic [id number] [facility] [place] Number: Hospital [address]Koz: (419) [id number] Repository [phone] () [place] Date:7760-05-45VB [address] [place] [address] 28[address]BT: 05/14/2018 Secondary NOT GIVENUNK Anne Insurance:SELF PAY [facility] Hospital Number: Effective Repository Date:2018-05-13 05/07/2018 FORREST [id number] Primary FORREST HICKSDOB: Anne [place] Insurance:ANTHEMPolic [id number] [facility] Number: Hospital [address]Ovi: (419) [id number] Repository [phone] () [place] Date:8498-33-47KO [address]HTXQQXCNY NARVAEZ [address]LB: 05/07/2018 Secondary NOT GIVENUNK Anne Insurance:SELF PAY [facility] Number: Effective Repository Date:2018-05-05 05/01/2018 FORREST [id number] Primary FORREST HICKSDOB: Anne [place] Insurance:ANTHEMPolic [id number] [facility] Number: Hospital [address]Otr: (419) [id number] Repository [phone] () [place] Date:9998-88-76QW [address]J, [place] [address]NU: 05/01/2018 Secondary NOT GIVENUNK Anne Insurance:SELF PAY [facility] Hospital Number: Effective Repository Date:2018-04-30 04/30/2018 FORREST [id number] Primary FORREST HICKSDOB: Anne [place] Insurance:ANTHEMPolic [id number] [facility] Number: [place] [address]Tel: (419) [id number] Repository [phone] () [place] Date:6758-10-05VM [address]YUEY[place], [place] [address]ZJ: 04/30/2018 Secondary NOT GIVENUNK Anne Insurance:SELF PAY [facility] Hospital Number: Effective Repository Date:2018-04-30 04/17/2018 FORREST [id number] Primary FORREST HICKSDOB: Anne [place] Insurance:ANTHEMPolic [id number] [place] [facility] Number[facility] Hospital [address]Obw: (419) [id number] Repository [phone] () [place] Date:7187-15-50NU [address]DPOD, [place] [address]LH: 04/17/2018 Secondary NOT GIVENUNK Anne Insurance:SELF PAY [facility] Hospital Number: Effective Repository Date:2018-04-17 04/03/2018 FORREST [id number] Primary FORREST HICKSDOB: Anne [place] Insurance:ANTHEMPolic [id number] [place] Number: Hospital [address]Prr: (419) [id number] Repository [phone] () [place]o Date:6194-44-42PT [address] [place] [address]PO: 04/03/2018 Secondary NOT GIVENUNK Anne Insurance:SELF PAY [facility] Number: Effective Repository Date:2018-04-03 04/03/2018 FORRESTTAJ [id number] Primary FORREST HICKSDOB: Anne [place] Insurance:ANTHEMPolic [id number] [facility] [place] Number: Hospital [address]Jem: (419) [id number] Repository [phone] () [place] Date:7908-73-91ZA [address] [place] [address] 124[address]TG: 04/03/2018 Secondary NOT GIVENUNK Anne Insurance:SELF PAY Community [facility] Hospital Number: Effective Repository Date:2018-03-27 03/13/2018 FORRESTTAJ [id number] Primary FORREST HICKSDOB: Anne [place] Insurance:ANTHEMPolic [id number] [facility] [place] Number: Hospital [address]Qlj: (419) [id number] Repository [phone] () romeo Date:4280-95-03GA [address]AFPVGYI, [place] [address]TV: 03/13/2018 Secondary NOT GIVENUNK [place] Insurance:SELF PAY [facility] Number: Effective Repository Date:2017-12-17 02/13/2018 FORRESTTAJ [id number] Primary FORREST HICKSDOB: Anne [place] Insurance:ANTHEMPolic [id number] [facility] [place] Number: Hospital [address]Yju: (419) [id number] Repository [phone] () [place] Date:9471-39-88KP [address]BCEPJQTNY N[place]VAEZ [address]NL: 02/13/2018 Secondary NOT GIVENUNK [place] Insurance:SELF PAY [facility] Number: Effective Repository Date:2017-12-17 02/06/2018 FORREST [id number] Primary FORREST HICKSDOB: Anne [place] Insurance:ANTHEMPolic [id number] [facility] Number: Hospital [address]Htp: (419) [id number] Repository [phone] () [place] Date:3650-21-91JD [address]YIEJZFNNY N[place] [address]PS: 02/06/2018 Secondary NOT GIVENUNK [place] Insurance:SELF PAY [facility] Number: Effective Repository Date:2018-01-19 01/16/2018 FORREST [id number] Primary FORREST HICKSDOB: [place] Insurance:ANTHEMPolic [id number] [place] Number: Hospital [address]Aub: (419) [id number] Repository [phone] () [place] Date:6460-45-97QG [address]YLCNWBJNY [place] [address]QC: 01/16/2018 Secondary NOT GIVENUNK [place] Insurance:SELF PAY [facility] Number: Effective Repository Date:2017-12-17 01/09/2018 FORREST [id number] Primary FORREST HICKSDOB: [place] Insurance:ANTHEMPolic [id number] [facility] Number: Hospital [address]Bdv: (419) [id number] Repository [phone] () [place] Date:7328-85-74ML [address]VSVZKLENY [place] [address]QO: 01/09/2018 Secondary NOT GIVENUNK Anne Insurance:SELF PAY [facility] Number: Effective Repository Date:2017-11-13 12/17/2017 FORREST [id number] Primary FORREST HICKSDOB: [place] Insurance:ANTHEMPolic [id number] [facility] Number: Hospital [address]Cls: (419) [id number] Repository [phone] () romeo Date:7477-50-68OD [address] [place] [address] 100[address]VK: 12/17/2017 Secondary NOT GIVENUNK [place] Insurance:SELF PAY [facility] Number: Effective Repository Date:2017-12-17 12/17/2017 FORREST [id number] Primary FORREST HICKSDOB: Anne [place] Insurance:ANTHEMPolic [id number] [facility] Number: Hospital [address]Rat: (419) [id number] Repository [phone] () romeo Date:8538-43-00AE [address]BOIGKW[address] [place] [address]HJ: 12/17/2017 Secondary NOT GIVENUNK [place] Insurance:SELF PAY [facility] Number: Effective Repository Date:2017-12-17 12/12/2017 FORREST [id number] Primary FORREST HICKSDOB: Anne [place] Insurance:ANTHEMPolic [id number] [facility] Number: Hospital [address]Ueu: (419) [id number] Repository [phone] () romeo Date:8100-97-28ZZ [address]YKFNCMF[address] [place] [address]45[address]TJ: 12/12/2017 Secondary NOT GIVENUNK [place] Insurance:SELF PAY [facility] Number: Effective Repository Date:2017-11-13 12/03/2017 FORREST [id number] Primary FORREST HICKSDOB: Anne [place] Insurance:ANTHEMPolic [id number] [facility] Number: Hospital [address]Elq: (419) [id number] Repository [phone] () romeo Date:2604-54-75UV [address]GJHEZYD[address] [place] [address] 39[address]EH: 12/03/2017 Secondary NOT GIVENUNK Anne Insurance:SELF PAY Community [facility] Number: Effective Repository Date:2017-12-03 12/03/2017 FORREST [id number] Primary FORREST HICKSDOB: Anne [place] Insurance:ANTHEMPolic [id number] [facility] Number: Hospital [address]Wvn: (419) [id number] Repository [phone] () romeo Date:8013-38-58TJ [address] [place] [address] 80212PR: 12/03/2017 Secondary NOT GIVENUNK Anne Insurance:SELF PAY [facility] Number: Effective Repository Date:2017-12-03 11/13/2017 FORREST [id number] Primary FORREST HICKSDOB: [place] Insurance:ANTHEMPolic [id number] [place] Number: [place] [id number]: (419) [id number] Repository [phone] () romeo Date:1118-06-58XD [address] [place] [address] 46482VS: 11/13/2017 Secondary NOT GIVENUNK [place] Insurance:SELF PAY [facility] Number: Effective Repository Date:2017-11-13 11/13/2017 Forrest [id number] Primary Forrest HiclanDOB: [place] Helt[place] Insurance:ANTHEMPolic [id number] [place] Number: Hospital [address]Azm: (419) [id number] Repository [phone] () romeo Date:3839-90-48VF [address] [place] [address] 637[address]SM: 11/13/2017 Secondary NOT GIVENUNK [place] Insurance:SELF PAY [facility] Number: Effective Repository Date:2017-11-13 09/26/2017 WAYNE S Primary FORREST D [facility] HICLANDOB: Insurance:ANTHEMPolic [facility] y Number: Effective [id number] System [place] Date:2017-09-26 - [place], [place] 7044-38-79[address] [address]Zoa: Name:John CHRISTOPHER [id number]: [id number], [place] () [address]AY: [phone] ()
== END 2018-06-24 11:10 | disposition home or self-care (01) | DRG 806 ==
PROVIDERS: Admitting Provider Obstetrics & Gynecology; Referring Provider Obstetrics & Gynecology; Visit Provider Obstetrics & Gynecology
DX: O99.214 Obesity complicating childbirth (principal); Z68.43 Body mass index [BMI] 50.0-59.9, adult; Z37.0 Single live birth; E66.01 Morbid (severe) obesity due to excess calories; Z3A.39 39 weeks gestation of pregnancy; Z87.891 Personal history of nicotine dependence
CPT/HCPCS: 36415; 59025; 59050; 85027; 86850; 86900; 99218; J7120; A4216; G0378; J2405

== ENCOUNTER → 2022-10-28 | Outpatient (CLI) | payer SELFPAY ==
[2022-11-03 09:07] LABS: HPV APTIMA, High Risk Negative (Negative)
== END | disposition home or self-care (01) ==
LOC: OPBI 12:55
PROVIDERS: Referring Provider Nurse Practitioner Women's Health; Visit Provider Nurse Practitioner Women's Health
DX: Z12.4 Encounter for screening for malignant neoplasm of cervix (principal)
CPT/HCPCS: 87624; 88175; G0145

== ENCOUNTER → 2022-11-25 | Outpatient (CLI) | payer BC, SELFPAY ==
--- NOTE | 2022-11-25 09:02 | BI_ITS ---
MAMMOGRAPHY - BILATERAL SCREENING REASON FOR EXAM: Female, 42 years old. Routine annual screening examination. PERTINENT HISTORY: Non-contributory. TECHNIQUE: Digital bilateral breast nino (3D mammographic acquisition) in the CC and MLO projections. 2-D mediolateral oblique (MLO) and craniocaudad (CC) views of both breasts were obtained. CAD: Full Field Digital Mammography with Computer Added Detection was performed. COMPARISON: None. Baseline examination. FINDINGS: Breast Composition: The breasts are heterogeneously dense, which may obscure small masses. There is an asymmetry in the right outer breast, middle depth, approximately 9.0 cm posterior to the nipple. Further assessment with spot compression views and ultrasound if needed is recommended. No other significant abnormalities are identified. BI/SCRN MAMM (CAD)W/NINO BILAT IMPRESSION: Further imaging evaluation recommended, as described above. (E) Recall Side: Right Breast ASSESSMENT CATEGORY: BIRADS Category 0: Incomplete. Need additional imaging evaluation. A letter regarding these results will be sent to the patient by the facility within 30 days. Approximately 10% of breast cancers are not detected by mammography. A normal mammogram should not delay biopsy of a clinically suspicious abnormality. Electronically Signed: Ye Smith MD at 14:53 EDT ,
== END | disposition home or self-care (01) ==
LOC: OPBI 09:01
PROVIDERS: Referring Provider Nurse Practitioner Women's Health; Visit Provider Nurse Practitioner Women's Health
DX: Z12.31 Encounter for screening mammogram for malignant neoplasm of breast (principal)
CPT/HCPCS: 77063; 77067

== ENCOUNTER → 2022-12-03 | Outpatient (CLI) | payer BC, SELFPAY ==
--- NOTE | 2022-12-03 09:06 | BI_ITS ---
MAMMOGRAPHY - UNILATERAL DIAGNOSTIC: RIGHT BREAST REASON FOR EXAM: Female, 42 years old. Abnormal screening mammogram. PERTINENT HISTORY: TECHNIQUE: Compression spot views of the right breast were obtained in the mediolateral oblique and craniocaudad projections.. CAD: Full Field Digital Mammography with Computer Added Detection was performed. COMPARISON: Comparison is made with prior study November 25, 2022. FINDINGS: Breast Composition: The breasts are heterogeneously dense, which may obscure small masses. There are no dominant masses or suspicious calcifications. No other significant abnormalities are identified. BI/DIAG MAMM W/CAD, UNILAT IMPRESSION: Negative unilateral diagnostic mammogram. Yearly followup mammogram recommended. (A) ASSESSMENT CATEGORY: BIRADS Category 1: Negative. A letter regarding these results will be sent to the patient by the facility within 30 days. Approximately 10% of breast cancers are not detected by mammography. A normal mammogram should not delay biopsy of a clinically suspicious abnormality. Electronically Signed: Sunny Mayorga MD at 11:14 EDT ,
== END | disposition home or self-care (01) ==
LOC: OPBI 09:04
PROVIDERS: Referring Provider Nurse Practitioner Women's Health; Visit Provider Nurse Practitioner Women's Health
DX: R92.8 Other abnormal and inconclusive findings on diagnostic imaging of breast (principal)
CPT/HCPCS: 77061; 77065; G0279

== ENCOUNTER → 2023-10-30 | Outpatient (CLI) | payer BC, SELFPAY | END | disposition home or self-care (01) | PROVIDERS: Visit Provider Nurse Practitioner Women's Health | DX: Z12.4 Encounter for screening for malignant neoplasm of cervix (principal) | CPT/HCPCS: 87624; 88175; G0145 ==

== ENCOUNTER → 2024-04-09 | Outpatient (CLI) | payer BC, SELFPAY ==
--- NOTE | 2024-04-09 09:36 | US_ITS ---
STUDY: ULTRASOUND OF THE FEMALE PELVIS - COMPLETE REASON FOR EXAM: Female, 43 years old. pain, bleeding LMP: 04/06/2024 TECHNIQUE: Transabdominal and Transvaginal TECHNICAL QUALITY: Adequate. COMPARISON: None. FINDINGS: The uterus is anteverted and is in a midline position. The uterus measures 8.9 x 5.3 x 4.3 cm. Normal uterine cervix. The endometrium measures 4 mm in thickness, and is hyperechoic. There is no demonstrated endometrial mass. There is no demonstrated myometrial mass. I.U.D. - The patient does not have an I.U.D. The right ovary is visualized. The right ovary measures 2.7 x 2.7 x 2.1 cm. There is no right ovarian cyst or ovarian mass. There is no visualized right adnexal mass or complex lesion. There is normal arterial and normal venous vascularity. The left ovary is visualized. The left ovary measures 2.2 x 1.6 x 1.3 cm. There is no left ovarian cyst or ovarian mass. There is no visualized left adnexal mass or complex lesion. There is normal arterial and normal venous vascularity. There is no fluid in the cul-de-sac. The pre void volume of the bladder was 40 ml. The post void volume of the bladder was ml. Polycystic ovary disease: No. US/Pelvic w/ Transvaginal IMPRESSION: Normal female pelvis. Electronically Signed: Ron Cuellar MD at 16:11 EDT ,
== END | disposition home or self-care (01) ==
LOC: US 09:34
PROVIDERS: PCP Nurse Practitioner Family; Referring Provider Nurse Practitioner Women's Health; Visit Provider Nurse Practitioner Women's Health
DX: N94.6 Dysmenorrhea, unspecified (principal); N92.0 Excessive and frequent menstruation with regular cycle
CPT/HCPCS: 76830; 76856

== ENCOUNTER → 2024-05-27 | Outpatient (CLI) | payer BC, SELFPAY ==
--- NOTE | 2024-05-27 | EMB_PTH ---
PATIENT: WAYNE VILLAR LOC: [facility] U#:[id number] AGE/SX: 43/F ROOM: RE05/27/[address]: Dr. Nguyen Newberry DO : 1980 BED: DIS: 05/27/2024 SPEC #: [id number] RECD: 05/27/24 12:27 STATUS: CONNIE MARLI #: [id number] OMID: 05/27/24 00:[address]: Nguyen Newberry DEPT: SURGICAL PATHOLOGY RECD BY: Zac Cruz ENTERED: 05/27/24 14:29 SP TYPE: ENDOM BX/C MADDIE DR: Anabelle Murrell, JUAN Tissues: Endometrium, NOS Procedures: Surgery Specimen Level IV HEADER OPERATION: Endometrial biopsy PRE-OP DIAGNOSIS: Dysmenorrhea TISSUE SUBMITTED: Endometrial tissue MICROSCOPIC DIAGNOSIS Endometrial biopsy: Secretory endometrium. 05/28/2024 MICROSCOPIC DESCRIPTION Slides are reviewed. GROSS DESCRIPTION Received in fixative is one container labeled with the patient's name and designated Endometrial biopsy. The specimen consists of multiple irregular fragments of modi-pink soft tissue that in aggregate measure 1.5 x 1.5 x 0.2 cm. The specimen is totally submitted in one cassette. 05/27/2024 TC:4 CPT:37752
== END | disposition home or self-care (01) ==
LOC: LABSPEC 11:53
PROVIDERS: PCP Nurse Practitioner Family; Referring Provider Obstetrics & Gynecology; Visit Provider Obstetrics & Gynecology
DX: N94.6 Dysmenorrhea, unspecified (principal)
CPT/HCPCS: 88305

== ENCOUNTER 2024-08-03 08:13 | Day surgery (SDC) | payer BC, SELFPAY ==
--- NOTE | 2024-07-20 16:24 | PAT.ANESEVAL ---
Pre-Assessment Diagnosis/Proposed Procedure Planned Operative Procedure(s): LAP ROBOTIC TOTAL HYSTERECTOMY BSO CYSTO Anesthesia History Anesthesia History - financial foundations representative: Anesthesia History - financial foundations representative Hx Hospitalization No 07/20/24 10:13 Any Problems With Anesthesia No 07/20/24 10:13 Cholinesterase deficiency No 07/20/24 10:13 You/Your Family Experience No 07/20/24 10:13 fever (hyperthermia) with Relationship Recent Exposure to Contagious Disease Does patient have nerve No 07/20/24 10:13 stimulator Patient instructed to have device shut off --Does patient have Pacemaker or ICD? When Was Last Pacemaker Check QUESTION #4 FULL TEXT: You/Your Family Experience fever (hyperthermia) with Anesthesia Last Oral Intake Last Oral intake: Last Oral Intake NPO since Meds taken in AM with sips of water? Meds patient instructed to take am of surgery PONV PONV - financial foundations representative: PONV - financial foundations representative Female Yes 07/20/24 10:13 HX of Motion Sickness No 07/20/24 10:13 HX of N/V After Surgery No 07/20/24 10:13 Non-Smoker Yes 07/20/24 10:13 Duration of Surgery greater Yes 07/20/24 10:13 than 60 minutes Number of Risk Factors 3 07/20/24 10:13 PONV Score Moderate Risk 07/20/24 10:13 Height & Weight Height & Weight: Anesthesia: Height & Weight Height 5 ft 3 in 05/27/24 08:20 Respiratory Assessment Respiratory Assessment - financial foundations representative: Respiratory Tract Infection Hx - financial foundations representative Hx Respiratory Tract Infection No 07/20/24 10:13 STOP Sleep Apnea STOP Sleep Apnea - financial foundations representative: STOP Sleep Apnea - financial foundations representative Hx Hypertension No 07/20/24 10:13 Hx Sleep Apnea No 07/20/24 10:13 CPAP BIPAP Do you snore loudly (louder No 07/20/24 10:13 than talking or can be heard Do you often feel tired/ No 07/20/24 10:13 fatigued/ sleepy during daytime? Has anyone observed you stop No 07/20/24 10:13 breathing during sleep? STOP Results Negative 07/20/24 10:13 QUESTION #5 FULL TEXT : Do you snore loudly (louder than talking or can be heard through closed doors)? Tobacco Use History Tobacco Use History - financial foundations representative: Tobacco Use History - financial foundations representative Tobacco Use Smoking Status Former smoker 07/20/24 10:13 Hx Tobacco Use No 07/20/24 10:13 Years Smoking Packs Smoked per Day Smoking Cessation Date was No - quit smoking greater 07/20/24 10:13 within the last 15 years than 15 years ago Hx Smoking Cessation Date Hx Smoking Cessation No 07/20/24 10:13 Counseling Hematologic Medial History Hematologic Hx - financial foundations representative: Hematologic Medical Hx - resource efficiency manager Hx of Blood Transfusion No 07/20/24 10:13 Hx of Transfusion in last 3 No 07/20/24 10:13 Months Date of Last Transfusion (if within last 3 months) Ever experience any problems No 07/20/24 10:13 with transfusion(s)? Specify any problems Hx of Preganancy in last 3 No 07/20/24 10:13 Months Nurse Filling Out Transfusion DSCHRIBER 07/20/24 10:13 & Questions: Date: 07/20/24 07/20/24 10:13 Time: 10:07/20/24 10:13 Patient unable to answer at this time (ie. confused, unrespo /Reproduction History /Reproductive History - financial foundations representative: /Reproductive Hx- financial foundations representative Hx Now No 07/20/24 10:13 Gestational Age (in weeks): EDC: Hx Hx Para Hx Section SAB No 07/20/24 10:13 PFSH Medical History (Updated 07/20/24 @ 10:25 by Geena Ibrahim) Wears glasses Alcohol use Easy bruising Migraine headache Former smoker Cardiology follow-up encounter History of transesophageal echocardiography (JOVON) History of echocardiogram Fibromyalgia Home Medications ?Medication ?Instructions ?Recorded ?Last Taken ?Type duloxetine 60 mg capsule,delayed 60 mg PO DAILY 10/28/22 Unknown History release (Cymbalta) cholecalciferol (vitamin D3) 125 125 mcg PO DAILY 10/30/23 Unknown History mcg (5,000 unit) capsule erenumab-aooe 70 mg/mL 70 mg subcut QMONTH 10/30/23 Unknown History subcutaneous auto-injector (Aimovig Autoinjector) tirzepatide (weight loss) 5 mg/0.5 10 mg subcut MO 10/30/23 07/12/24 History mL subcutaneous pen injector (Zepbound) sumatriptan succinate 100 mg tablet 100 mg PO Q2H PRN migraine headache 07/20/24 Unknown History valacyclovir 1 gram tablet 1,000 mg PO BID PRN COLD SORE 07/20/24 Unknown History Allergy/AdvReac Type Severity Reaction Status Date / Time No Known Allergies Allergy Verified 07/20/24 10:08 Family History Father Hypertension Grandmother Hypoglycemia Surgical History H/O hernia repair ankle surgery Hx of cholecystectomy Social History Smoking Status: Former smoker alcohol intake: never substance use type: does not use caffeine: Yes what type of physical activity do you participate in: walking seatbelt use: always do you feel safe at home: Yes additional social history: [employer] in [place] Patient works at [place] [employer]: Pertinent Findings Pertinent Findings EKG Perinent findings: December 24, 2023. Normal sinus rhythm. Echo (EF%) pertinent findings: November 27, 2023. Left ventricular ejection fraction is 60%. The aortic valve is not well-visualized. Consult pertinent findings: February 06, 2024. [facility] cardiology. 1. Patient had an abnormal echo. Unable to visualize aortic valve adequately. A JOVON was performed and showed good ejection fraction and trileaflet aortic valve. Additional pertinent findings: Transesophageal echo. February 06, 2024. Ejection fraction of 55 to 60%. No aortic stenosis noted. Aortic valve seems to be a tri-leaflet. Recommendation Anesthesia Recommendation Anesthesia recommendation: OPTIMIZED for anesthesia
[2024-08-03] VITALS (13 sets, daily range): BP systolic 94–117; BP diastolic 53–72; PULSE 56–66; RESP 14–16; TEMP 36.1–37.2; O2SAT 96–100; BMI 39.4
[2024-08-03 08:50] LABS: Internal QC Validated? YES +Cl - CLEAR BKGD; Pregnancy, Urine Negative Negative
[2024-08-03] MEDS: Gabapentin 600 MG Tablet PO (09:01)
[2024-08-03] MEDS: Celecoxib 200 MG Capsule 400 MG PO (09:01)
[2024-08-03] MEDS: Acetaminophen 500 MG Tablet 1000 MG PO (09:02)
[2024-08-03] MEDS: Scopolamine 1mg/72hr Patch 1 PATCH TD (09:02)
[2024-08-03] MEDS: Phenazopyridine 95 MG Tablet 190 MG PO (09:02)
[2024-08-03] MEDS: Lactated Ringers 1,000 ML 40 ML IV (09:03)
[2024-08-03 09:18] LABS: Hematocrit 37.8 % (37-47); Hemoglobin 12.6 g/dL (12.0-15.0); Mean Corp Hgb Conc 33.3 g/dL (32-36); Mean Corpuscular Hgb 29.3 pg (27.0-32.0); Mean Corpuscular Volume 87.9 fL (81-99); Platelet Count 263 K/mm3 (150-450); RBC Distribution Width CV 13.4 % (11.6-14.6); RBC Distribution Width SD 43.1 fl (35.1-43.9)
[2024-08-03 09:25] LABS: Magnesium 2.1 mg/dL (1.6-2.6)
--- NOTE | 2024-08-03 09:32 | PRE.ANES_ITS ---
ASA Classification* ASA Classification ASA Classification: 1 Assessment & Plan Anesthesia* Anesthesia Assessment Anesthesia Assessment: Discussed sedation and/or anesthesia options, risks, benefits, and alternatives with patient/parents/legal guardian/POA. Questions invited. The patient/parents/legal guardian/POA seems to understand and agrees to proceed with anesthesia plan. Reviewed the physical assessment, medical history, allergy history and patient home medications list prior to surgery/procedure/anesthetic and documented any changes. Performed airway and anesthesia risk assessments. Anesthesia Type Anesthesia Type: General History Source History Obtained from:: Patient and Chart Anesthesia Focused Assessment* Temperature: 97.8 F Pulse Rate: 64 Blood Pressure: 117/72 Respiratory Rate: 16 Pulse Ox: 99 Oxygen Delivery Method: Room Air Airway Assessment Mouth opens: >3 cm Mallampati Score: I Teeth Condition: Caps/Crowns (Patient has a couple crowns on molars. They are tight) Neck Range of motion (ROM): Full ROM Focused Labs Anesthesia Preop lab: CBC WBC 6.0 K/mm3 (4.4-11.0) 08/03/24 08:45 RBC 4.30 M/mm3 (4.2-5.4) 08/03/24 08:45 Hgb 12.6 g/dL (12.0-15.0) 08/03/24 08:45 Hct 37.8 % (37-47) 08/03/24 08:45 Plt Count 263 K/mm3 (150-450) 08/03/24 08:45 CHEMISTRY Potassium 3.6 mmol/L (3.5-5.1) 04/12/15 13:49 Sodium 139 mmol/L (136-145) 04/12/15 13:49 Magnesium 2.1 mg/dL (1.6-2.6) 08/03/24 08:45 BUN 6 mg/dL (7-18) L 04/12/15 13:49 Creatinine 0.68 mg/dL (0.55-1.20) 04/12/15 13:49 Glucose 69 mg/dL (70-110) L 04/12/15 13:49 POC Glucose 79 mg/dL (74-106) 08/03/24 09:13 COAG Urine Test Negative Negative 08/03/24 08:30 Tst Clinic Negative 11/21/24 08:33 Pre-Assessment Diagnosis/Proposed Procedure Planned Operative Procedure(s): LAP ROBOTIC TOTAL HYSTERECTOMY BSO CYSTO Anesthesia History Anesthesia History - director diabetes: Anesthesia History - director diabetes Hx Hospitalization No 07/20/24 10:13 Any Problems With Anesthesia No 07/20/24 10:13 Cholinesterase deficiency No 07/20/24 10:13 You/Your Family Experience No 07/20/24 10:13 fever (hyperthermia) with Relationship Recent Exposure to Contagious No 08/03/24 09:07 Disease Does patient have nerve No 07/20/24 10:13 stimulator Patient instructed to have device shut off --Does patient have Pacemaker No 08/03/24 09:07 or ICD? When Was Last Pacemaker Check QUESTION #4 FULL TEXT: You/Your Family Experience fever (hyperthermia) with Anesthesia Last Oral Intake Last Oral intake: Last Oral Intake NPO since 05:00 08/03/24 09:07 Meds taken in AM with sips of Yes 08/03/24 09:07 water? Meds patient instructed to take am of surgery Any additional information?: Yes NPO since: 05:00 (Patient drank her preop Ensure at 5 AM.) PONV PONV - director diabetes: PONV - director diabetes Female Yes 07/20/24 10:13 HX of Motion Sickness No 07/20/24 10:13 HX of N/V After Surgery No 07/20/24 10:13 Non-Smoker Yes 07/20/24 10:13 Duration of Surgery greater Yes 07/20/24 10:13 than 60 minutes Number of Risk Factors 3 07/20/24 10:13 PONV Score Moderate Risk 07/20/24 10:13 Height & Weight Height & Weight: Anesthesia: Height & Weight Height 5 ft 3 in 08/03/24 09:07 Weight: 101 kg 08/03/24 09:07 Body Mass Index (BMI) 39.4 08/03/24 09:07 Respiratory Assessment Respiratory Assessment - director diabetes: Respiratory Tract Infection Hx - director diabetes Hx Respiratory Tract Infection No 07/20/24 10:13 STOP Sleep Apnea STOP Sleep Apnea - director diabetes: STOP Sleep Apnea - director diabetes Hx Hypertension No 07/20/24 10:13 Hx Sleep Apnea No 07/20/24 10:13 CPAP BIPAP Do you snore loudly (louder No 07/20/24 10:13 than talking or can be heard Do you often feel tired/ No 07/20/24 10:13 fatigued/ sleepy during daytime? Has anyone observed you stop No 07/20/24 10:13 breathing during sleep? STOP Results Negative 07/20/24 10:13 QUESTION #5 FULL TEXT : Do you snore loudly (louder than talking or can be heard through closed doors)? Tobacco Use History Tobacco Use History - director diabetes: Tobacco Use History - director diabetes Tobacco Use Smoking Status Former smoker 07/20/24 10:13 Hx Tobacco Use No 07/20/24 10:13 Years Smoking Packs Smoked per Day Smoking Cessation Date was No - quit smoking greater 07/20/24 10:13 within the last 15 years than 15 years ago Hx Smoking Cessation Date Hx Smoking Cessation No 07/20/24 10:13 Counseling Hematologic Medial History Hematologic Hx - director diabetes: Hematologic Medical Hx - food specialist Hx of Blood Transfusion No 07/20/24 10:13 Hx of Transfusion in last 3 No 07/20/24 10:13 Months Date of Last Transfusion (if within last 3 months) Ever experience any problems No 07/20/24 10:13 with transfusion(s)? Specify any problems Hx of Preganancy in last 3 No 07/20/24 10:13 Months Nurse Filling Out Transfusion DSCHRIBER 07/20/24 10:13 & Questions: Date: 07/20/24 07/20/24 10:13 Time: 10:14 07/20/24 10:13 Patient unable to answer at this time (ie. confused, unrespo /Reproduction History /Reproductive History - director diabetes: /Reproductive Hx- director diabetes Hx Now No 07/20/24 10:13 Gestational Age (in weeks): EDC: Hx Hx Para Hx Section SAB No 07/20/24 10:13 Active Medications Active Medications: Current Medications Generic Name Dose Route Start Last Admin Trade Name Freq PRN Reason Stop Dose Admin Acetaminophen 1,000 mg 08/03/24 10:15 08/03/24 09:02 Acetaminophen 500 Mg Tablet PO 08/03/24 10:16 1,000 mg PREOP ONE Administration Gabapentin 600 mg 08/03/24 10:15 08/03/24 09:01 Gabapentin 600 Mg Tablet PO 08/03/24 10:16 600 mg PREOP ONE Administration Lactated Ringer's 1,000 mls @ 40 mls/hr 08/03/24 10:15 08/03/24 09:03 IV 40 mls/hr .Q25H NGUYEN Administration Cefazolin Sodium 2 gm/ N/A 20 mls @ 400 mls/hr 08/03/24 10:15 IV 08/03/24 10:17 PREOP ONE Lactated Ringer's 1,000 mls @ 40 mls/hr 08/03/24 10:15 IV .Q25H NGUYEN Insulin Human Lispro 0 unit 08/03/24 10:15 Insulin Lispro 100 Unit/Ml Insuln.Pen SC 08/03/24 18:00 Q4H PRN PRN BG >/= 180, SEE PROTOCOL Protocol Ondansetron HCl 4 mg 08/03/24 10:15 Ondansetron 4 Mg/2 Ml Vial IV 08/03/24 10:16 X1 ONE Phenazopyridine HCl 190 mg 08/03/24 10:15 08/03/24 09:02 Phenazopyridine 95 Mg Tablet PO 08/03/24 10:16 190 mg X1 ONE Administration Scopolamine HBr 1 patch 08/03/24 10:15 08/03/24 09:02 Scopolamine 1mg/72hr Patch TD 08/03/24 10:16 1 mg X1 ONE Administration PFSH Medical History Wears glasses Alcohol use Easy bruising Migraine headache Former smoker Cardiology follow-up encounter History of transesophageal echocardiography (JOVON) History of echocardiogram Fibromyalgia Home Medications ?Medication ?Instructions ?Recorded ?Last Taken ?Type duloxetine 60 mg capsule,delayed 60 mg PO DAILY 10/28/22 08/02/24 History release (Cymbalta) cholecalciferol (vitamin D3) 125 125 mcg PO DAILY 10/30/23 08/02/24 History mcg (5,000 unit) capsule erenumab-aooe 70 mg/mL 70 mg subcut QMONTH 10/30/23 07/19/24 History subcutaneous auto-injector (Aimovig Autoinjector) tirzepatide (weight loss) 5 mg/0.5 10 mg subcut MO 10/30/23 07/12/24 History mL subcutaneous pen injector (Zepbound) sumatriptan succinate 100 mg tablet 100 mg PO Q2H PRN migraine headache 07/20/24 Unknown History valacyclovir 1 gram tablet 1,000 mg PO BID PRN COLD SORE 07/20/24 Unknown History ibuprofen 800 mg tablet 800 mg PO Q8H PRN pain #30 tabs 08/03/24 Unknown Rx oxycodone-acetaminophen 5 mg-325 1 tab PO Q4H PRN pain 7 days #30 08/03/24 Unknown Rx mg tablet (Percocet) tabs Allergy/AdvReac Type Severity Reaction Status Date / Time No Known Allergies Allergy Verified 08/03/24 09:17 Family History Father Hypertension Grandmother Hypoglycemia Surgical History H/O hernia repair ankle surgery Hx of cholecystectomy Social History Smoking Status: Former smoker alcohol intake: never substance use type: does not use caffeine: Yes what type of physical activity do you participate in: walking seatbelt use: always do you feel safe at home: Yes additional social history: [employer] in [place]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 Review of Systems (Anesthesia) ROS Narrative System reviewed and no additional complaints, except as documented.
[2024-08-03] MEDS: Magnesium 1 GM over 15 mins IV (09:38)
--- NOTE | 2024-08-03 09:39 | PCM.HP.BLA ---
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 Required: No Is patient in pain?: No Allergies No Known Allergies Allergy (Verified 07/19/24 15:40) Medications ?Medication ?Instructions ?Recorded ?Confirmed ?Type duloxetine 60 mg capsule,delayed 60 mg PO DAILY 10/28/22 07/19/24 History release (Cymbalta) cholecalciferol (vitamin D3) 125 125 mcg PO DAILY 10/30/23 07/19/24 History mcg (5,000 unit) capsule erenumab-aooe 70 mg/mL 70 mg subcut QMONTH 10/30/23 07/19/24 History subcutaneous auto-injector (Aimovig Autoinjector) tirzepatide (weight loss) 5 mg/0.5 5 mg subcut QWEEK 10/30/23 07/19/24 History mL subcutaneous pen injector (Zepbound) Post menopausal: No Patient : No : No PFSH Medical History Fibromyalgia Rheumatoid arthritis Surgical History H/O hernia repair ankle surgery Hx of cholecystectomy Family History Father HypertensionGrandmother Hypoglycemia Social History Smoking Status: Former smoker alcohol intake: never substance use type: does not use caffeine: Yes what type of physical activity do you participate in: walking seatbelt use: always do you feel safe at home: Yes additional social history: [employer] in [place] Patient works at [place] [employer] [facility] BS Cysto Details: WAYNE VILLAR is a 43 year old (all vaginal deliveries) who presents for preop exam for a scheduled hysterectomy due to heavy menses and painful periods. She had an ultrasound that showed a normal 8 cm uterus and a 4 mm lining. She had a normal TSH recently (1.62). She was recently diagnosed with EDS. She is taking medication for weight loss, which she held since last week and an injection medication for migraines that she takes monthly and is due to take tomorrow. EMB 05/27/24 showed secretory endometrium. History 4 Elective abortions Hx Para 3 Spontaneous abortions 1 Hx # Term Pregnancies Ectopic pregnancies Hx # Pregnancies Multiple births # of living children Past Pregnancies Del. Date Name GA/Weeks Outcome Route Bth Weight Gen Labor Lgth Anesthesia Del Locatn Provider FOB Unknown 2003 Yvette live - full term [id number] Female epidural [facility] Care Unknown 2005 Frandy live - full term [id number] Male epidural [facility] 06/21/18 Emaline 39 live - full term Female epidural [facility] SM ROS Const ROS Unobtainable: All systems reviewed & are unremarkable except as noted in H Resp Resp: Reports system reviewed and no additional complaints, except as documented; Denies cough GI GI: Reports as per HPI Psych Psych: Reports system reviewed and no additional complaints, except as documented Exam Const General: cooperative, healthy appearing, comfortable and no acute distress Resp Effort & Inspection: normal respiratory effort Skin General: no rashes or lesions noted Psych Appearance: grossly normal Speech and Movement: speech and movement normal Coding Level of Care Code Off vis,est,level 4 Diagnoses 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 I have discussed with the patient the risks, benefits, and alternatives of the procedure which include but are not limited to risks of anesthesia, bleeding, infection, possible damage to bowel, bladder, or surrounding vasculature which could lead to additional surgery to evaluate any complications. Patient agrees to procedure and wishes to proceed. ACOG/uptodate references given for additional information regarding procedure. plan for total robotic hysterectomy, BS, cysto.
--- NOTE | 2024-08-03 09:50 | DCINST_ITS ---
Discharge Instructions Diet Discharge Diet: No restrictions DC O2, CPAP, BIPAP needs Home O2 Discharge instructions: No Dressing / Incision May resume sexual activity in: 8 weeks Weight Bearing Status: Full weight bearing Lifting Restrictions: 10 pounds Dressing / Incision Call your doctor if your incision/area has: Continuous Slow Oozing, Sudden Increased Bleeding, Increased Pain/ Swelling, Increased Redness and Foul Smelling Discharge Call your doctor if you observe: Fever of 101 or Higher, Using more than 1 pad per hour, Shortness of breath, Chest pain and Uncontrolled pain Suture Line Care: Avoid Pulling/Pushing and Avoid Pinching/Bending Remove Dressing in: 1 week (if present) Cleanse incision/area with: Soap & Water and Keep Dressing Clean & Dry Follow Up Care Please Follow Up With: Nguyen Newberry DO When: Call to make an appointment with your doctor for a postop visit in 2 and 6 weeks Test Results: Test results from this visit will be discussed in further detail at your follow- up appointment, if applicable. Discharge Plan Admission Primary Reason for Your Visit: hysterectomy Attending Provider: Nguyen Newberry Primary Care Provider: Anabelle Murrell Instructions Print Language: New Zealander Discharge Orders/Prescriptions Prescriptions: New ibuprofen 800 mg tablet 800 mg PO Q8H PRN (Reason: pain) Qty: 30 0RF oxycodone-acetaminophen [Percocet] 5-325 mg tablet 1 tab PO Q4H PRN (Reason: pain) 7 Days Qty: 30 0RF Rx Instructions: 1-2 tabs q 4 hrs as needed for pain Continued duloxetine [Cymbalta] 60 mg capsule,delayed release(DR/EC) 60 mg PO DAILY cholecalciferol (vitamin D3) 125 mcg (5,000 unit) capsule 125 mcg PO DAILY Aimovig Autoinjector 70 mg/mL auto-injector 70 mg subcut QMONTH Zepbound 5 mg/0.5 mL pen injector 10 mg subcut MO sumatriptan succinate 100 mg tablet 100 mg PO Q2H PRN (Reason: migraine headache) valacyclovir 1 gram tablet 1,000 mg PO BID PRN (Reason: COLD SORE) Referrals / Follow Up: Anabelle Murrell, TELEGRAPH DISPATCHER-C [Primary Care Provider] - Disposition Disposition (needs filled in before D/C Order can be placed): Home, Self Care
--- NOTE | 2024-08-03 10:15 | HYST_PTH ---
PATIENT: WAYNE VILLAR LOC: [facility] [place] U#:[id number] AGE/SX: 44/F ROOM: RE08/03/[address]: Dr. Nguyen Newberry DO : 1980 BED: DIS: 08/03/2024 SPEC #: [id number] RECD: 08/03/24 13:57 STATUS: CONNIE AGUILARKate #: [id number] OMID: 08/03/24 10:[address]: Nguyen Newberry DEPT: SURGICAL PATHOLOGY RECD BY: Zac Cruz ENTERED: 08/04/24 08:14 SP TYPE: HYSTERECT OTHR DR: Anabelle Murrell, TOÁMS-C Tissues: Uterus, NOS Procedures: Surgery Specimen Level V HEADER OPERATION: Laparoscopic robotic total hysterectomy, bilateral salpingectomy PRE-OP DIAGNOSIS: EDS, history of HPV, menorrhagia with regular cycle TISSUE SUBMITTED: Uterus, bilateral fallopian tubes, cervix MICROSCOPIC DIAGNOSIS Uterus, cervix, bilateral fallopian tubes, hysterectomy and bilateral salpingectomy: Cervix - Mild chronic cystic cervicitis and squamous metaplasia. Endometrium - Proliferative endometrium. Myometrium - Adenomyosis. Bilateral fallopian tubes - no pathologic diagnosis. 08/05/2024 MICROSCOPIC DESCRIPTION Slides are reviewed. GROSS DESCRIPTION Received in fixative is one container labeled with the patient's name and designated uterus, cervix and bilateral fallopian tubes. The specimen consists of a hysterectomy specimen consisting of uterus with cervix and attached bilateral fallopian tubes. The uterus with cervix weighs 92 gm and measures 9.5 x 6 x 4 cm. The serosal surface is modi glistening. The ectocervical mucosa is unremarkable. The external os is oval in contour. The endocervical canal measures 3.5 cm in length and the endocervical mucosa is modi glistening and unremarkable. Sections of cervix reveal a few cysts filled with mucoid material. The triangular endometrial cavity measures 5 cm in length and up to 2 cm in width. The endometrium is modi glistening without any mass lesions and measures 0.1 cm in thickness. Sections of uterine wall do not reveal any mass lesions and measures 2cm in thickness. The right fallopian tube measures 6.5cm in length and 0.7cm in diameter. Fimbrial end is identified. Sections reveal unremarkable cut surfaces. Left fallopian tube is similar in appearance to right and measures 5cm in length and 0.6cm in diameter. Engine Maintenance Mechanic sections are submitted in eight cassettes as follows: 1 - anterior cervix, 2 - posterior cervix, 3 & 4 - anterior uterine wall, 5 & 6 - posterior uterine wall, 7- right fallopian tube, 8- left fallopian tube. SUMA: 08/04/2024 TC:5 CPT: 12241
[2024-08-03] MEDS: Cefazolin 2 GM in Syringe 10 ML IV (10:46)
[2024-08-03] MEDS: Bupivacaine 0.25% 30 ML Vial (11:15)
[2024-08-03] MEDS: Ondansetron 4 MG/2 ML Vial IV (11:53)
--- NOTE | 2024-08-03 12:02 | OP.PCM_ITS ---
Problems Associated Problem List Diagnoses (1) Dysmenorrhea: (2) Menorrhagia with regular cycle: (3) History of human papilloma virus: Multi Select Codes Urinary/Genital Urinary/Genital CPT Codes: 49041 Cystoscopy and 30671 TLH+BS/O <250gr uterus Operative Report (Standard) Operative Information Date of Procedure: 08/03/24 Pre-Operative Diagnosis: menorrhagia, dysmenorrhea Post-Operative Diagnosis: menorrhagia, dysmenorrhea Surgery/Procedure Performed: total robotic hysterectomy, bilateral salpingectomy, cystoscopy adhesive bandage machine operator: Yes Technical Report Writer: Dahlia Lux Tasks completed by merchandising assistant: Closing, Insert Trochanter and Retracting Additional intellectual property legal assistant?: No Type of Anesthesia: General RN Documented Start/Stop Times: Operation Date: 08/03/24 10:15 Case Time Into Pre-Op 08/03/24 08:19 Out of Pre-Op 08/03/24 10:28 Anesthesia Start 08/03/24 10:33 Into Room 08/03/24 10:33 Procedure Start 08/03/24 11:00 Procedure Start Time: 11:00 Procedure Stop Time: 12:11 Select all DRAINS/GRAFTS/IMPLANTS that apply: None Estimated Blood Loss: 50cc Specimen collected: Yes Description of specimen(s) removed: uterus, cervix, and fallopian tubes Description of surgery: Reason for surgery: This is a 44-year-old G3, P3 who presented to my office with history of heavy menstrual cycles and desire for definitive therapy. She has tried control in the past but due to her migraine headaches she is unable to continue this. The planned procedure is for a robotic hysterectomy the risks benefits and alternatives were discussed with the patient the patient had a clear understanding of the procedure and a consent form was signed. Procedure: The patient was placed in the dorsal low lithotomy position and prepped and draped in the normal sterile fashion both abdominally and in the perineum. Her legs were placed in stirrups a Rios catheter was inserted into the urethra without difficulty. A weighted speculum was placed in the vagina and a single- tooth tenaculum was used to grasp the anterior lip of the cervix. An advincula uterine manipulator was inserted through the cervix without complication. It was then tied into place at the 2 and 10:00 locations on the cervix. Gloves were c hanged and attention was turned towards the abdomen. Approximately 23 cm above the pubic symphysis in the midline, and after Marcaine injection, a 8 mm incision was made. An 8 mm trocar was inserted through the laparoscope, then inserted into the abdomen under direct visualization using the laparoscope. Good abdominal placement was noted and no complications were appreciated. An air seal device was utilized to create pneumoperitoneum. At 12 cm lateral to the midline on the left and right sides 8 mm accessory ports were placed. Next a left upper quadrant 8 mm intellectual property legal assistant port site was placed. The patient was placed in steep Trendelenburg position. The robot was docked. The hysterectomy was initiated first by elevating the fallopian tube on the right side and cauterizing the underlying mesosalpinx using the vessel sealer device to the level of the cornua. This was performed on both sides. The round ligament on each side was taken down using the vessel sealer device. the broad ligament was then and taken down using the vessel sealer device. Next the bladder flap was taken down without complication. This was done using monopolar cautery to the level of the cervical vaginal junction. After the bladder flap was created, uterine vessels were then isolated and cauterized using the vessel sealer device and EndoShears. At this point the uterine vessels were taken down further starting from the ascending branch, dissecting along the edges of the cervix to the level of the cervical vaginal junction with hemostasis appreciated. The cervical vaginal junction was then using monopolar cautery in a circumferential pattern across the superior aspect of the cervix. The specimen was delivered through the vagina and sent to pathology. The remaining vaginal cuff was then closed using a V lock suture. This was performed in a running technique. Excellent hemostasis was obtained and good closure was noted. Irrigation was then performed. All operative sites were noted to be hemostatic. A cystoscopy was performed with a 70 degree cystoscope through the urethra into the bladder without complication. The bladder was instilled with approximately 250 cc of normal saline. Intraoperative images were made. Ureteral orifices and jets were identified. No suture material was appreciated in the bladder. The bladder was then drained and cystoscope was removed. The abdominal cavity was again examined using the laparoscope after the robot was undocked. All operative sites were noted to be hemostatic. The trochars were removed under direct visualization without complication and pneumoperitoneum was reduced. At this point the skin was then closed using 4-0 Monocryl subcuticular stitch and sealed with surgical glue. The patient tolerated the procedure well sponge lap and needle counts were correct x2 the patient was taken to the recovery room in stable condition. Surgical Findings: normal uterus, tubes, an simple cysts on the ovaries, overall normal female pelvis Complications Complications: No Admit VTE Documentation VTE Present on Admission: No VTE Mechan Device Prophylaxis: SCD's VTE Pharm Prophylaxis ordered?: No
--- NOTE | 2024-08-03 12:28 | PCM.POST.ANE ---
Anesthesia: Postop Eval I Current Vital Signs Temperature: 96.9 F Pulse Rate: 63 Blood Pressure: 101/62 Respiratory Rate: 14 Pulse Ox: 96 Oxygen Delivery Method: Room Air Assessment Airway patent: Yes Spontaneous unlabored respirations: Yes Mental status: Awake and Calm nausea: No Vomiting: No Anesthesia Complication: No Fluid Hydration Crystalloid volume administer (ml): 900 Total IV fluid infused: 900 Progress Note Anesthesia document: Postop Eval 1 completed: Yes
[2024-08-03] MEDS: HYDROcodone Bitartrate/Apap 5/325 Tablet PO (14:03)
[2024-08-03 14:19] LABS: Bedside Glucose 79 mg/dL (74-106)
--- NOTE | 2024-08-04 07:55 | POSTOPAN2_ITS ---
Anesthesia Postop Eval I Sum Postop Eval Completion status Anesthesia document: Postop Eval 1 completed: Yes Anesthesia Postop Eval I Summary Anesthesia Postop Eval I Summary: Anesthesia Postop Eval I: Assessment Summary Airway patent Yes 08/03/24 12:29 [email or web address] Spontaneous unlabored Yes 08/03/24 12:29 HOLISTIC [email or web address].[email or web address] respirations Mental status Awake,Calm 08/03/24 12:29 [email or web address].[email or web address] nausea No 08/03/24 12:29 HOLISTIC SPECIALIST.[email or web address] Vomiting No 08/03/24 12:29 HOLISTIC [email or web address].[email or web address] Anesthesia Postop Eval I: Fluid Summary Crystalloid volume administer 900 08/03/24 12:29 HOLISTIC [email or web address].[email or web address] (ml) Colloids volume administered ( ml) Blood Product volume administered (ml) Total IV fluid infused 900 08/03/24 12:29 HOLISTIC SPECIALIST.[email or web address] Anesthesia Postop Eval I: Summary Notes Anesthesia Complication No 08/03/24 12:29 HOLISTIC [email or web address].[email or web address] Anesthesia Complication Comment: Post-operative progress note Anesthesia: Postop Eval II Evaluation Mental status: Awake and Calm Pain Level: 1 nausea: No Vomiting: No Complications Anesthesia Complication: No
--- NOTE | 2024-08-04 07:55 | PCM.POSTANE2 ---
Anesthesia Postop Eval I Sum Postop Eval Completion status Anesthesia document: Postop Eval 1 completed: Yes Anesthesia Postop Eval I Summary Anesthesia Postop Eval I Summary: Anesthesia Postop Eval I: Assessment Summary Airway patent Yes 08/03/24 12:29 CHRISTMAS BELL [email or web address] Spontaneous unlabored Yes 08/03/24 12:29 CHRISTMAS BELL [email or web address] respirations Mental status Awake,Calm 08/03/24 12:29 CHRISTMAS BELL [email or web address] nausea No 08/03/24 12:29 CHRISTMAS BELL [email or web address].GDOTT Vomiting No 08/03/24 12:29 CHRISTMAS BELL [email or web address].[email or web address] Anesthesia Postop Eval I: Fluid Summary Crystalloid volume administer 900 08/03/24 12:29 CHRISTMAS BELL [email or web address].GDOTT (ml) Colloids volume administered ( ml) Blood Product volume administered (ml) Total IV fluid infused 900 08/03/24 12:29 CHRISTMAS BELL [email or web address].GDOTT Anesthesia Postop Eval I: Summary Notes Anesthesia Complication No 08/03/24 12:29 CHRISTMAS BELL [email or web address] Anesthesia Complication Comment: Post-operative progress note Anesthesia: Postop Eval II Evaluation Mental status: Awake and Calm Pain Level: 1 nausea: No Vomiting: No Complications Anesthesia Complication: No
== END 2024-08-03 16:39 | disposition home or self-care (01) ==
LOC: SDC 08:15 → AC 08:17
PROVIDERS: Anesthesiology; PCP Nurse Practitioner Family; Referring Provider Obstetrics & Gynecology; Visit Provider Obstetrics & Gynecology
PROC: 0UT90ZZ Resection of Uterus, Open Approach (ICD-10-PCS; CPT 58571; principal; 2024-08-03 09:55)
DX: N80.03 Adenomyosis of the uterus (principal); M06.9 Rheumatoid arthritis, unspecified; N87.0 Mild cervical dysplasia; N92.0 Excessive and frequent menstruation with regular cycle; M79.7 Fibromyalgia; Q79.60 Ehlers-Danlos syndrome, unspecified; G43.909 Migraine, unspecified, not intractable, without status migrainosus; Z86.19 Personal history of other infectious and parasitic diseases; Z79.899 Other long term (current) drug therapy; Z87.891 Personal history of nicotine dependence
CPT/HCPCS: 58571; S2900; 00840; 81025; 82962; 83735; 85027; 86850; 86900; 86901; 88307; J2405; J3475

== ENCOUNTER 2024-08-24 16:28 | Observation (INO) | payer BC, SELFPAY ==
[2024-08-24 16:29] VITALS: BP 130/82; PULSE 70; RESP 18; TEMP 36.3; O2SAT 100; BMI 42.1
[2024-08-24 17:06] LABS: Absolute Lymphocyte Count 2.03 X10^3/uL (0.83-4.51); Absolute Neutrophil Count 4.2 X10^3/uL (2.0-7.7); Basophil# 0.06 X10^3/uL; Basophil% 0.8 % (0-1); Eosinophil# 0.41 X10^3/uL; Eosinophils% 5.7 % (0-5); Hematocrit 36.6 % (37-47); Hemoglobin 12.1 g/dL (12.0-15.0); Lymphocyte # 2.03 X10^3/ul (0.83-4.51); Lymphocyte % 28.2 % (19-41); Mean Corp Hgb Conc 33.1 g/dL (32-36); Mean Corpuscular Hgb 29.6 pg (27.0-32.0); Mean Corpuscular Volume 89.5 fL (81-99); Monocyte# 0.53 X10^3/uL; Monocyte% 7.4 % (0-10); NRBC Flagged by Analyzer 0 % (0-5); Neutrophil # 4.15 X10^3/uL (2.7-7.7); Neutrophil % 57.6 % (47-70); Platelet Count 267 K/mm3 (150-450); RBC Distribution Width CV 13.8 % (11.6-14.6); RBC Distribution Width SD 45.2 fl (35.1-43.9); Red Blood Count 4.09 M/mm3 (4.2-5.4); White Blood Count 7.2 K/mm3 (4.4-11.0)
[2024-08-24 17:09] LABS: Mucous, Urine 0 SEEN /hpf (<or=2+)
[2024-08-24 17:16] LABS: Color, Urine Yellow (Yellow); Glucose, Dipstick Normal (Normal); Ketone-Dipstick Negative (Negative); Leukocyte Esterase-Dipstick Negative /ul (Negative); Nitrite-Dipstick Negative (Negative); Occult Blood-Urine Negative /ul (Negative); Protein-Dipstick Negative (Negative); Urine Bilirubin Dipstick Negative (Negative); Urine Clarity Clear (Clear); Urine Urobilinogen 1 mg/dl (Normal)
[2024-08-24 17:21] LABS: AST(SGOT) 208 U/L (15-37); Alanine Aminotransfer ALT/SGPT 371 U/L (13-56); Albumin, Serum 3.5 g/dL (3.2-5.0); Alkaline Phosphatase 177 U/L (45-117); Anion Gap 5 (5-15); BUN 17 mg/dL (7-18); Calcium,Total 9.3 mg/dL (8.5-10.1); Chloride 107 mmol/L (98-107); Creatinine, Serum 0.59 mg/dL (0.55-1.02); EST Glomerular Filtration Rate 120 mL/min (>60); Est Glom Filt Rate - Afr Amer 145 mL/min (>60); Estimated Creatinine Clearance 146.33 ml/min; Globulin 3.6 g/dL (2.2-4.2); Glucose 87 mg/dL (74-106); Potassium 3.8 mmol/L (3.5-5.1); Protein, Total 7.1 g/dL (6.4-8.2); Sodium Level 139 mmol/L (136-145)
[2024-08-24 17:46] LABS: Red Blood Cells-Urine 0-5 SEEN /hpf (0-5); Squamous Epithelial Cells - UA 0-5 SEEN /hpf (5-10)
[2024-08-24 17:47] LABS: Bacteria RARE /hpf (None Seen); White Blood Cells 0-5 SEEN /hpf (0-5)
--- NOTE | 2024-08-24 17:56 | EDS_ITS ---
HPI HPI - GI History of Present Illness Chief Complaint: Abd Pain Abdominal Pain/Flank Pain Onset: Yesterday Context: Sudden Onset Timing: Continuous Quality: Stabbing Location: LUQ Worsened by: - (Walking) Relieved by: Nothing Nausea/Vomiting/Emesis GI Symptom: Negative for Nausea or Vomiting Diarrhea/Melena/Hematochezia GI Symptom: Negative for Diarrhea, Melena or Hematochezia Associated Symptoms Associated Symptoms: Negative for Dysuria, Frequency or Hematuria Narrative Narrative: Patient presents with abdominal pain that began yesterday. Patient states it began rather suddenly. Patient states she was bending forward to put her socks on when she felt a sharp pain in her left upper abdomen. Patient describes it as stabbing. Patient states it is worse with walking. Patient denies any nausea or vomiting. Patient denies any diarrhea, melena, or hematochezia. Patient denies any dysuria, frequency, or hematuria. Patient states she had a hysterectomy on 08/03/2024. PFS PFS Medical History Wears glasses Alcohol use Easy bruising Migraine headache Former smoker Cardiology follow-up encounter History of transesophageal echocardiography ([facility]OVON) History of echocardiogram Fibromyalgia Home Medications ?Medication ?Instructions ?Recorded ?Last Taken ?Type duloxetine 60 mg capsule,delayed 60 mg PO DAILY 08/02/24 History release (Cymbalta) cholecalciferol (vitamin D3) 125 125 mcg PO DAILY 10/0608/02/24 History mcg (5,000 unit) capsule erenumab-aooe 70 mg/mL 70 mg subcut QMONTH 10/30/23 08/17/24 History subcutaneous auto-injector (Aimovig Autoinjector) sumatriptan succinate 100 mg tablet 100 mg PO Q2H PRN migraine headache 07/20/24 Unknown History Allergy/AdvReac Type Severity Reaction Status Date / Time No Known Allergies Allergy Verified 08/24/24 16:29 Family History Father Hypertension Grandmother Hypoglycemia Surgical History H/O: hysterectomy H/O hernia repair ankle surgery Hx of cholecystectomy Social History Smoking Status: Former smoker alcohol intake: never substance use type: does not use caffeine: Yes what type of physical activity do you participate in: walking seatbelt use: always do you feel safe at home: Yes additional social history: [employer] in [place] Patient works at [employer], [place], operated by [employer] ROS ROS ED Constitutional Constitutional ED: Denies chills or fever(s) Eyes Eyes: Denies blurry vision or change in vision ENT ENT ED: Denies rhinorrhea or sore throat Cardiovascular Cardiovascular: Denies chest pain or palpitations Respiratory/Chest Respiratory/Chest: Denies cough or dyspnea Gastrointestinal Gastrointestinal: Reports abdominal pain; Denies nausea or vomiting Genitourinary Genitourinary ED: Denies dysuria or hematuria Musculoskeletal Musculoskeletal: Denies back pain or neck pain Integumentary Denies abscess or rash Neurologic Neurologic: Denies headache(s) or weakness Allergic/Immunologic Allergic/Immunologic ED: Denies mouth swelling or urticaria EXAM Physical Exam Const Vital Signs: 08/24/24 16:29 08/24/24 18:29 08/24/24 20:00 Temperature 97.4 F L Temperature Source Temporal Pulse Rate 70 62 81 Respiratory Rate 18 14 16 Blood Pressure 130/82 H 122/81 H Blood Pressure Mean 98 94 Pulse Ox 100 100 98 Oxygen Delivery Method Room Air Room Air Room Air 08/24/24 22:00 08/24/24 23:07 Temperature 98.5 F Temperature Source Pulse Rate 68 69 Respiratory Rate 18 18 Blood Pressure 124/78 H 124/69 H Blood Pressure Mean 93 87 Pulse Ox 100 100 Oxygen Delivery Method Room Air Positive well nourished and well developed Constitutional Narrative: BMI is 42.2 General Appearance ED: well developed and NAD HEENT Reports moist mucous membranes Neck supple and no JVD Resp normal respiratory effort and clear to auscultation bilaterally Cardio regular rate and regular rhythm GI non-distended Auscultation: normoactive bowel sounds Palpation: soft and tender LUQ; Negative for guarding or rebound tenderness present Neuro CN's II-XII intact bilaterally, moves all extremities and no sensory deficits noted Sensorium / Orientation: alert Motor Exam: strength 5/5 throughout Psych mental status grossly normal MDM MDM MDM Narrative Medical decision making narrative: Differential diagnosis includes bowel obstruction, perforation, electrolyte ab normality, muscle strain, and postoperative pain. CBC will be obtained to assess for leukocytosis and anemia. Comprehensive metabolic profile will be obtained to assess for hepatic function, renal function, and electrolyte abnormality. Urinalysis will be obtained to assess for urinary tract infection and hematuria. CT scan of the abdomen pelvis will be obtained to assess for bowel obstruction and perforation. Lab Data Attestation: I reviewed the patient's lab results. Lab results narrative: CBC was reviewed and was within normal limits. Comprehensive metabolic profile was reviewed. Total bilirubin was normal at 0.6. AST was slightly elevated at 208, ALT was slightly elevated at 371, and alkaline phosphatase was slightly elevated at 177. The remainder is within normal limits. Urinalysis was reviewed. There is no evidence of urinary tract infection or hematuria. Labs: Laboratory Results - last 24 hr 08/24/24 08/24/24 07:03 16:52 WBC 7.2 RBC 4.09 L Hgb 12.1 Hct 36.6 L MCV 89.5 MCH 29.6 MCHC 33.1 RDW Std Deviation 45.2 H RDW Coeff of Heladio 13.8 Plt Count 267 MPV 9.0 Immature Gran % (Auto) 0.300 Neut % (Auto) 57.6 Lymph % (Auto) 28.2 [place] % (Auto) 7.4 Eos % (Auto) 5.7 H Baso % (Auto) 0.8 Absolute Neuts (auto) 4.2 Absolute Lymphs (auto) 2.03 Nucleated RBC % 0 Sodium 139 Potassium 3.8 Chloride 107 Carbon Dioxide 28.0 Anion Gap 5 BUN 17 Creatinine 0.59 Estim Creat Clear Calc 146.33 Est GFR (MDRD) Af Amer 145 Est GFR (MDRD) Non-Af 120 BUN/Creatinine Ratio 29.0 H Glucose 87 Calcium 9.3 Total Bilirubin 0.60 AST 208 H ALT 371 H Alkaline Phosphatase 177 H Total Protein 7.1 Albumin 3.5 Globulin 3.6 Albumin/Globulin Ratio 1.0 Urine Color Yellow Urine Clarity Clear Urine pH 7.0 Ur Specific [place] 1.010 Urine Protein Negative Urine Glucose (UA) Normal Urine Ketones Negative Urine Occult Blood Negative Urine Nitrite Negative Urine Bilirubin Negative Urine Urobilinogen 1 H Ur Leukocyte Esterase Negative Urine RBC 0-5 SEEN Urine WBC 0-5 SEEN Ur Squamous Epith Cells 0-5 SEEN Urine Bacteria RARE Urine Mucus 0 SEEN Radiography Diagnostic Testing: Clinical Impression(s) from Imaging Studies Abdomen/Pelvis CT 08/24/24 17:57 IMPRESSION: 1. Free air in the anterior right lower quadrant. Correlate with recent intervention. 2. Hepatic steatosis Findings communicated to Dr. José Miguel Phillips on 08/24/2024 at 1849 hours One or more dose reduction techniques were used (e.g., Automated exposure control, adjustment of the mA and/or kV according to patient size, use of iterative reconstruction technique). Reading Location: [facility] scan of the abdomen and pelvis was obtained. There is diffuse fatty infiltration of the liver. There is a hypodensity in the right lobe of the liver which is too small to be characterized. There is a small amount of free air in the anterior right lower abdomen. This could be consistent with previous surgery. This was interpreted by the radiologist was also independently reviewed by myself. Management Discussion w/another healthcare provider: Online Media Director (Dr. Das from [facility] [employer] [facility], Dr. Villanueva from general surgery) Treatment and Re-Evaluation :: Patient was given IV fluids, morphine, and Zofran. Patient was advised of her findings. On reevaluation, patient had some mild tenderness in the right lower quadrant. There is no rebound or guarding noted. There is no rigidity noted. Case was discussed with Dr. Radha Das from [facility] [employer]. She recommended consulting general surgery. Case was discussed with Dr. Villanueva. He did not feel this is surgical emergency. He recommends starting patient on antibiotics and observing the patient. Case was discussed with Dr. Radha Das again. She will admit the patient for observation. Patient was given a dose of Zosyn. Patient understood and was agreeable with the plan. All questions were answered. Discharge Plan Dx/Rx/DC Orders Clinical Impression: Postoperative abdominal pain, Status post hysterectomy, Free intraperitoneal air Disposition Disposition: Acute Care Hospital [facility] Discharge Date/Time: 08/25/24 00:32
--- NOTE | 2024-08-24 17:57 | CT_ITS ---
PROCEDURE: ABDOMEN/PELVIS W IV CONT ONLY REASON FOR EXAM: Abdominal pain TECHNIQUE: Abdomen and pelvis CT with intravenous contrast. COMPARISON: None. FINDINGS: Lung bases: Clear Hernia: Small hiatal hernia Liver: Diffuse fatty infiltration. Subcentimeter right lobe hypodensity which is too small to characterize. Gallbladder: Surgically absent. Spleen: Normal size. Pancreas: Normal size without evidence of mass surrounding inflammation or ductal dilation. Adrenals: Unremarkable. Kidneys: Normal renal sizes. No hydronephrosis. Bladder: Unremarkable. Reproductive Organs: Prior hysterectomy. Adnexal regions are unremarkable. Bowel: No bowel obstruction. Appendix: Normal. Lymph nodes: No suspicious lymph node enlargement. Vasculature: Major vascular structures are unremarkable. Peritoneum / Retroperitoneum: Mild amount of free air is noted within the anterior right lower quadrant Bones: Unremarkable. CT/Abdomen/Pelvis W IV Cont ONLY IMPRESSION: 1. Free air in the anterior right lower quadrant. Correlate with recent inter vention. 2. Hepatic steatosis Findings communicated to Dr. José Miguel Phillips on 08/24/2024 at 1849 hours One or more dose reduction techniques were used (e.g., Automated exposure contr ol, adjustment of the mA and/or kV according to patient size, use of iterative reconstruction technique). Reading Location: [facility]
[2024-08-24] MEDS: 0.9% Normal Saline (1000mL) 1,000 ML 999 ML IV (18:10)
[2024-08-24] MEDS: Ondansetron 4 MG/2 ML Vial IV (18:11)
[2024-08-24] MEDS: Morphine 4 MG/ML Syringe IV (18:11)
[2024-08-24 18:29] VITALS: BP 122/81; PULSE 62; RESP 14; O2SAT 100
[2024-08-24 20:00] VITALS: PULSE 81; RESP 16; O2SAT 98
[2024-08-24 22:00] VITALS: BP 124/78; PULSE 68; RESP 18; O2SAT 100
[2024-08-24 23:07] VITALS: BP 124/69; PULSE 69; RESP 18; TEMP 36.9; O2SAT 100
[2024-08-24] MEDS: Piperacil/Tazobactam 3.375 GM in 0.9% Normal Saline (50mL MB+) 50 ML IV (23:10)
[2024-08-25] VITALS (9 sets, daily range): BP systolic 117–142; BP diastolic 69–89; PULSE 61–77; RESP 16–18; TEMP 36.3–37; O2SAT 97–100; BMI 39.4
[2024-08-25] MEDS: Acetaminophen 500 MG Tablet 1000 MG PO ×2 (02:16→12:05)
[2024-08-25] MEDS: oxyCODONE 5 MG Tablet PO (02:16)
[2024-08-25] MEDS: 0.9% Saline Lock 10 ML Syringe IV ×2 (02:18→05:31)
[2024-08-25 05:29] LABS: Absolute Lymphocyte Count 2.55 X10^3/uL (0.83-4.51); Absolute Neutrophil Count 3.4 X10^3/uL (2.0-7.7); Basophil# 0.07 X10^3/uL; Eosinophil# 0.46 X10^3/uL; Eosinophils% 6.4 % (0-5); Hematocrit 34.4 % (37-47); Hemoglobin 11.4 g/dL (12.0-15.0); Lymphocyte # 2.55 X10^3/ul (0.83-4.51); Lymphocyte % 35.6 % (19-41); Mean Corp Hgb Conc 33.1 g/dL (32-36); Mean Corpuscular Hgb 29.4 pg (27.0-32.0); Mean Corpuscular Volume 88.7 fL (81-99); Mean Platelet Vol. 9.2 fl (6.2-12.0); Monocyte# 0.66 X10^3/uL; Monocyte% 9.2 % (0-10); NRBC Flagged by Analyzer 0 % (0-5); Neutrophil # 3.41 X10^3/uL (2.7-7.7); Neutrophil % 47.7 % (47-70); Platelet Count 243 K/mm3 (150-450); RBC Distribution Width CV 13.7 % (11.6-14.6); RBC Distribution Width SD 44.5 fl (35.1-43.9); Red Blood Count 3.88 M/mm3 (4.2-5.4); White Blood Count 7.2 K/mm3 (4.4-11.0)
[2024-08-25] MEDS: Piperacil/Tazobactam 3.375 GM in 0.9% Normal Saline (50mL MB+) 50 ML IV ×2 (05:32→13:54)
[2024-08-25 06:17] LABS: ALB/GLOB Ratio 1.1 RATIO (0.9-2.4); AST(SGOT) 171 U/L (15-37); Alanine Aminotransfer ALT/SGPT 317 U/L (13-56); Albumin, Serum 3.3 g/dL (3.2-5.0); Alkaline Phosphatase 160 U/L (45-117); Anion Gap 7 (5-15); BUN 13 mg/dL (7-18); Chloride 106 mmol/L (98-107); Creatinine, Serum 0.65 mg/dL (0.55-1.02); EST Glomerular Filtration Rate 106 mL/min (>60); Est Glom Filt Rate - Afr Amer 128 mL/min (>60); Estimated Creatinine Clearance 127.94 ml/min; Glucose 119 mg/dL (74-106); Potassium 3.4 mmol/L (3.5-5.1); Protein, Total 6.3 g/dL (6.4-8.2); Sodium Level 137 mmol/L (136-145)
--- NOTE | 2024-08-25 07:49 | PCM.HP.OB ---
HPI - General General Date of Admission: 08/24/24 HPI Narrative WAYNE VILLAR, is a 44 F who presents with LUQ pain sharp onset after bending over, she is 3 weeks postop from robotic hysterectomy. upon evaluation in the office she was sent to the ER to get imaging, and a small amount of free air of undetermined significance was seen. she denies any bleeding abnormal discharge no N V D no fevers. PFSH PFSH Medical History Wears glasses Alcohol use Easy bruising Migraine headache Former smoker Cardiology follow-up encounter History of transesophageal echocardiography (JOVON) History of echocardiogram Fibromyalgia Home Medications ?Medication ?Instructions ?Recorded ?Last Taken ?Type duloxetine 60 mg capsule,delayed 60 mg PO DAILY 10/28/22 08/02/24 History release (Cymbalta) cholecalciferol (vitamin D3) 125 125 mcg PO DAILY 10/30/23 08/02/24 History mcg (5,000 unit) capsule erenumab-aooe 70 mg/mL 70 mg subcut QMONTH 10/30/23 08/17/24 History subcutaneous auto-injector (Aimovig Autoinjector) sumatriptan succinate 100 mg tablet 100 mg PO Q2H PRN migraine headache 07/20/24 Unknown History Allergy/AdvReac Type Severity Reaction Status Date / Time No Known Allergies Allergy Verified 08/24/24 16:29 Family History Father Hypertension Grandmother Hypoglycemia Surgical History H/O: hysterectomy H/O hernia repair ankle surgery Hx of cholecystectomy Social History Smoking Status: Former smoker alcohol intake: never substance use type: does not use caffeine: Yes what type of physical activity do you participate in: walking seatbelt use: always do you feel safe at home: Yes additional social history: [employer] in [place] Patient works at [employer] History 4 Elective abortions Hx Para 3 Spontaneous abortions 1 Hx # Term Pregnancies Ectopic pregnancies Hx # Pregnancies Multiple births # of living children Past Pregnancies Del. Date Name GA/Weeks Outcome Route Bth Weight Infant Gen Labor Lgth Anesthesia Del Locatn Provider FOB Unknown 2003 Yvette live - full term [id number] Female epidural [facility] Care Unknown 2005 Frandy live - full term [id number] Male epidural [facility] 06/21/18 Emaline 39 live - full term Female epidural [facility] ROS Constitutional Constitutional: Reports systems reviewed and no addt'l complaints, except as documented; Denies as per HPI, change in weight, fatigue, fever(s), malaise, weakness or other Eyes Eyes: Reports systems reviewed and no addt'l complaints, except as documented; Denies as per HPI, change in vision or other ENT HEENT: Reports systems reviewed and no addt'l complaints, except as documented Respiratory/Chest Respiratory/Chest: Reports systems reviewed and no addt'l complaints, except as documented Gastrointestinal Gastrointestinal: Reports systems reviewed and no addt'l complaints, except as documented and as per HPI Genitourinary Genitourinary: Reports as per HPI Musculoskeletal Musculoskeletal: Reports systems reviewed and no addt'l complaints, except as documented Neurologic Neurologic: Reports systems reviewed and no addt'l complaints, except as documented Psychiatric Psychiatric: Reports systems reviewed and no addt'l complaints, except as documented Endocrine Endocrinology: Reports systems reviewed and no addt'l complaints, except as documented Hematologic/Lymphatic Hematologic/Lymphatic: Reports systems reviewed and no addt'l complaints, except as documented Vital Signs Vital Signs Vital Signs: 08/24/24 16:29 08/24/24 18:29 08/24/24 20:00 Temperature 97.4 F L Temperature Source Temporal Pulse Rate 70 62 81 Respiratory Rate 18 14 16 Respiratory Effort Respiratory Depth Respiratory Pattern Blood Pressure 130/82 H 122/81 H Blood Pressure Mean 98 94 Blood Pressure Source Blood Pressure Position Blood Pressure Location Pulse Ox 100 100 98 Oxygen Delivery Method Room Air Room Air Room Air 08/24/24 22:00 08/24/24 23:07 08/25/24 00:00 Temperature 98.5 F Temperature Source Pulse Rate 68 69 Respiratory Rate 18 18 Respiratory Effort Respiratory Depth Respiratory Pattern Blood Pressure 124/78 H 124/69 H 118/69 Blood Pressure Mean 93 87 85 Blood Pressure Source Blood Pressure Position Blood Pressure Location Pulse Ox 100 100 100 Oxygen Delivery Method Room Air 08/25/24 00:50 08/25/24 01:15 08/25/24 03:21 Temperature 97.7 F L 98.2 F Temperature Source Oral Oral Pulse Rate 77 61 Respiratory Rate 16 16 Respiratory Effort Normal Non-Labored Respiratory Depth Normal Respiratory Pattern Normal Blood Pressure 135/80 H 117/78 Blood Pressure Mean 98 91 Blood Pressure Source Monitor Monitor Blood Pressure Position Sitting Semi-Fowlers Blood Pressure Location Left Arm Left Arm Pulse Ox 97 98 Oxygen Delivery Method Room Air Room Air Room Air Weight Weight: 222 lb 14.197 oz Body Mass Index (BMI) 39.4 Physical Exam Const alert, oriented x3 and no apparent distress HEENT normocephalic Head and Scalp: atraumatic Eyes EOMs intact bilaterally and conjunctivae normal Neck full ROM, no lymphadenopathy, supple and thyroid normal General: trachea midline Lymph Lymphatic: no lymphadenopathy noted Resp normal respiratory effort, no retractions and no use of accessory muscles Cardio regular rhythm GI soft to palpation, non-distended and no masses GI Narrative: incisions clean, dry intact Inspection: Negative for abdominal distention Extremity normal to inspection Skin no rashes or lesions noted Neuro moves all extremities and deep tendon reflexes 2+ bilaterally Psych mental status grossly normal Labs Labs Labs: Blood Type A NEGATIVE Antibody Screen NEGATIVE Hct 34.4 % (37-47) L Hgb 11.4 g/dL (12.0-15.0) L Obstetrics Ultrasound Rubella IgG Antibody 202.1 IU/mL Hep Bs Antigen Negative (Negative) Hepatitis C Ab (EIA) <0.1 s/co ratio (0.0-0.9) HIV 1&2 Antibody Non-Reactive (Nonreactive) Glucose 1 Hr 50 gm 120 mg/dL (70-140) Rhogam given: No Miscellaneous Test Assessment & Plan (1) Postoperative abdominal pain: (2) Status post hysterectomy: (3) Free intraperitoneal air: COMMENT: unclear significance, admit and start IV zosyn in case of possible postop infeciton, will review with radiologist. no leukocytosis or fever. (4) Abnormal liver function: COMMENT: reviewed labs from may and WN, discussed with gen surg and will consult GI for additional imaging PLAN: Plan see problem list comments. admit for STO and IV zosyn, consult GI
[2024-08-25] MEDS: Rizatriptan Benzoate 10 MG Tablet PO (10:06)
[2024-08-25] MEDS: DULoxetine Hcl 60 MG Capsule PO (10:13)
[2024-08-25] MEDS: Cholecalciferol (Vit D3) 125 MCG CAPSULE (5,000 UNITS) PO (10:13)
--- NOTE | 2024-08-25 12:33 | PCM.PN.BLA ---
Progress Note reviewed imaging with radiology- free air appears to be due to postop changes, no signs of infection. no liver areas supicious other than fatty liver, no bile duct abnormalities. reviewed with GI and recommend repeat labs and order MRCP, okay for discharge. abnormal labs may be due to medication or weight loss. will recommend fu as OP
--- NOTE | 2024-08-25 13:11 | MRI_ITS ---
PROCEDURE: MRCP ABDOMEN WITHOUT CONTRAST REASON FOR EXAM: Cholestatic hepatitis with jaundice. TECHNIQUE: Multiplanar, multisequence MRI of the upper abdomen without contrast. 3D reconstructed images were obtained for MRCP COMPARISON: None. FINDINGS: Bile ducts: No biliary dilation. No evidence of stones or strictures. The common bile duct is normal in diameter at 4 mm. Gallbladder: Post cholecystectomy Pancreatic duct: Unremarkable. 3D Images: There is apparent stricture at the level of the duodenal papilla that is not reproduced on the 2D thick slab images. Liver: Normal size, contour, and background signal intensities. A 9 mm T2 hyperintense lesion is seen in segment 7. Pancreas: Unremarkable. Liver: Background liver is normal in morphology. A 9 mm T2 hyperintense nodule is seen in segment 7, as on the prior study. MRI/MRCP Abdomen without Contrast IMPRESSION: NO INTRA OR EXTRAHEPATIC BILIARY DUCTAL DILATION. PROBABLE CYST IN SEGMENT 7 OF THE LIVER MEASURES 9 MM. Reading Location: [id number]
--- NOTE | 2024-08-25 13:42 | DCINST_ITS ---
Discharge Instructions Diet Discharge Diet: No restrictions DC O2, CPAP, BIPAP needs Home O2 Discharge instructions: No Dressing / Incision Discharge Activity: Return to Normal Activity, May Not Drive ( while taking narcotic pain meds, when pain free), May Shower and May Take a Tub Bath (in 7 days) Weight Bearing Status: Full weight bearing Dressing / Incision Call your doctor if your incision/area has: Continuous Slow Oozing, Sudden Increased Bleeding, Increased Pain/ Swelling, Increased Redness and Foul Smelling Discharge Call your doctor if you observe: Fever of 101 or Higher, Using more than 1 pad per hour, Shortness of breath, Chest pain and Uncontrolled pain Suture Line Care: Avoid Pulling/Pushing and Avoid Pinching/Bending Cleanse incision/area with: Soap & Water and Keep Dressing Clean & Dry Follow Up Care Test Results: Test results from this visit will be discussed in further detail at your follow- up appointment, if applicable. Discharge Plan Admission Admit Date/Time: 08/25/24 01:02 Attending Provider: Radha Das Primary Care Provider: Anabelle Murrell Discharge Orders/Prescriptions Prescriptions: No Action duloxetine [Cymbalta] 60 mg capsule,delayed release(DR/EC) 60 mg PO DAILY cholecalciferol (vitamin D3) 125 mcg (5,000 unit) capsule 125 mcg PO DAILY Aimovig Autoinjector 70 mg/mL auto-injector 70 mg subcut QMONTH sumatriptan succinate 100 mg tablet 100 mg PO Q2H PRN (Reason: migraine headache) Referrals / Follow Up: Radha Das MD [Med Staff - Active Staff] - 3-5 Days Anabelle Murrell NP-C [Primary Care Provider] -
[2024-08-25] MEDS: 0.9% Normal Saline (1000mL) 1,000 ML 125 ML IV (17:00)
--- NOTE | 2024-08-25 17:05 | EX.PCM.CON.G ---
HPI Consult Data Date of Consult: 08/26/24 HPI Narrative Reason for Consultation: Elevated liver enzymes HPI Narrative: WAYNE VILLAR, is a 44 F who presented to the emergency room with worsening abdominal pain that began yesterday. Patient states it began rather suddenly. Patient states she was bending forward to put her socks on when she felt a sharp pain in her left upper abdomen. Patient describes it as stabbing. Patient states it is worse with walking. Patient denies any nausea or vomiting. Patient denies any diarrhea, melena, or hematochezia. Patient denies any dysuria, frequency, or hematuria. Patient states she had a hysterectomy on 08/03/2024. I was asked to see her due to increased liver enzymes. She had a CT scan of abdomen pelvis that displayed some free air in the right lower quadrant consistent with her recent intervention and some hepatic steatosis. Prior to this admission her liver enzymes were normal. After looking up her labs her AST was 20, ALT 15, alkaline phosphatase 100 and total bilirubin of 0.7. Labs on admission had displayed AST of 208, ALT of 371, alkaline phosphatase 177 and a total bili of 0.6. Repeat labs today show a decrease in AST to 171, decrease in ALT since 317 and alkaline phosphatase decreased at 160. However her bilirubin went up to 1.2. She does admit to about a 80 pound weight loss. She has not been on any diet medications. She does not drink any alcohol. She does not take Tylenol on a daily basis. She has no history of chronic hepatitis B or chronic hepatitis C. She has no family history of autoimmune liver disease. She never had a blood transfusion. I wrote labs for autoimmune disease and infiltrative disease affecting her liver. I also ordered an MRCP that is pending. The rest of her labs are within normal limits. [facility] Medical History Wears glasses Alcohol use Easy bruising Migraine headache Former smoker Cardiology follow-up encounter History of transesophageal echocardiography (JOVON) History of echocardiogram Fibromyalgia Home Medications ?Medication ?Instructions ?Recorded ?Last Taken ?Type duloxetine 60 mg capsule,delayed 60 mg PO DAILY 10/28/22 08/02/24 History release (Cymbalta) cholecalciferol (vitamin D3) 125 125 mcg PO DAILY 10/30/23 08/02/24 History mcg (5,000 unit) capsule erenumab-aooe 70 mg/mL 70 mg subcut QMONTH 10/30/23 08/17/24 History subcutaneous auto-injector (Aimovig Autoinjector) sumatriptan succinate 100 mg tablet 100 mg PO Q2H PRN migraine headache 07/20/24 Unknown History Allergy/AdvReac Type Severity Reaction Status Date / Time No Known Allergies Allergy Verified 08/24/24 16:29 Family History Father Hypertension Grandmother Hypoglycemia Surgical History H/O: hysterectomy H/O hernia repair ankle surgery Hx of cholecystectomy Social History Smoking Status: Former smoker alcohol intake: never substance use type: does not use caffeine: Yes what type of physical activity do you participate in: walking seatbelt use: always do you feel safe at home: Yes additional social history: [employer] in [place] Patient works at [employer] Constitutional Constitutional: Denies fatigue, fever(s), poor appetite, weight gain or weight loss Gastrointestinal Gastrointestinal: Denies belching, bloating, change in bowel habits, change in stool character, chewing difficulty, coffee ground emesis, constipation, cramping, diarrhea, dyspepsia, dysphagia, early satiety, excessive flatus, fecal incontinence, heartburn, hematemesis, hematochezia, hemorrhoids, loose stools, melena, nausea, odynophagia, rectal bleeding, tenesmus, vomiting or weight changes Physical Exam Const alert, oriented x3, no apparent distress and healthy appearing General Appearance: cooperative GI normal to inspection, nondistended, normoactive bowel sounds, soft to palpation, non-tender and non-distended Percussion: normal to percussion Rectal Exam: deferred Lab / Micro Data 08/25/24 04:55 08/25/24 17:00 Labs: Laboratory Results - last 24 hr 08/24/24 07:03: Urine Color Yellow, Urine Clarity Clear, Urine pH 7.0, Ur Specific Gifford 1.010, Urine Protein Negative, Urine Glucose (UA) Normal, Urine Ketones Negative, Urine Occult Blood Negative, Urine Nitrite Negative, Urine Bilirubin Negative, Urine Urobilinogen 1 H, Ur Leukocyte Esterase Negative, Urine RBC 0-5 SEEN, Urine WBC 0-5 SEEN, Ur Squamous Epith Cells 0-5 SEEN, Urine Bacteria RARE, Urine Mucus 0 SEEN 08/24/24 16:52: WBC 7.2, RBC 4.09 L, Hgb 12.1, Hct 36.6 L, MCV 89.5, MCH 29.6, MCHC 33.1, RDW Std Deviation 45.2 H, RDW Coeff of Heladio 13.8, Plt Count 267, MPV 9.0, Immature Gran % (Auto) 0.300, Neut % (Auto) 57.6, Lymph % (Auto) 28.2, Gem % (Auto) 7.4, Eos % (Auto) 5.7 H, Baso % (Auto) 0.8, Absolute Neuts (auto) 4.2, Absolute Lymphs (auto) 2.03, Nucleated RBC % 0, Sodium 139, Potassium 3.8, Chloride 107, Carbon Dioxide 28.0, Anion Gap 5, BUN 17, Creatinine 0.59, Estim Creat Clear Calc 146.33, Est GFR (MDRD) Af Amer 145, Est GFR (MDRD) Non-Af 120, BUN/Creatinine Ratio 29.0 H, Glucose 87, Calcium 9.3, Total Bilirubin 0.60, AST 208 H, ALT 371 H, Alkaline Phosphatase 177 H, Total Protein 7.1, Albumin 3.5, Globulin 3.6, Albumin/Globulin Ratio 1.0 08/25/24 04:55: WBC 7.2, RBC 3.88 L, Hgb 11.4 L, Hct 34.4 L, MCV 88.7, MCH 29.4, MCHC 33.1, RDW Std Deviation 44.5 H, RDW Coeff of Heladio 13.7, Plt Count 243, MPV 9.2, Immature Gran % (Auto) 0.100, Neut % (Auto) 47.7, Lymph % (Auto) 35.6, Gem % (Auto) 9.2, Eos % (Auto) 6.4 H, Baso % (Auto) 1.0, Absolute Neuts (auto) 3.4, Absolute Lymphs (auto) 2.55, Nucleated RBC % 0, Sodium 137, Potassium 3.4 L, Chloride 106, Carbon Dioxide 24.0, Anion Gap 7, BUN 13, Creatinine 0.65, Estim Creat Clear Calc 127.94, Est GFR (MDRD) Af Amer 128, Est GFR (MDRD) Non-Af 106, BUN/Creatinine Ratio 20.0, Glucose 119 H, Calcium 9.0, Total Bilirubin 1.20 H, AST 171 H, ALT 317 H, Alkaline Phosphatase 160 H, Total Protein 6.3 L, Albumin 3.3, Globulin 3.0, Albumin/Globulin Ratio 1.1 Imaging Radiology Impression Abdomen/Pelvis CT 08/24/24 17:57 IMPRESSION: 1. Free air in the anterior right lower quadrant. Correlate with recent intervention. 2. Hepatic steatosis Findings communicated to Dr. José Miguel Phillips on 08/24/2024 at 1849 hours One or more dose reduction techniques were used (e.g., Automated exposure control, adjustment of the mA and/or kV according to patient size, use of iterative reconstruction technique). Reading Location: [facility] Assessment & Plan Assessment/Plan (1) Abnormal liver function: PLAN: The differential diagnosis for her increased liver enzymes are sphincter of Oddi syndrome type I or type II, ampullary lesion, intermittent distal common bile duct stricture, choledochocele, ischemic hepatitis with decrease in blood pressure and presybeterian of blood pressure. She got an MRCP and it did not show any signs of obstructive physiology. Therefore I told her if she can tolerate food she can be discharged to home. She can finish the workup as an outpatient as we had already drawn labs. The only thing she would need possibly would be a HIDA scan to see if she would benefit from ERCP . Charges/Coding Visit Charges Inpatient E&M: 23487 Init Hosp L3
[2024-08-25 17:46] LABS: Erythrocyte Sedimentation Rate 18 mm/hr (0-30)
[2024-08-25 17:51] LABS: ALB/GLOB Ratio 1.1 RATIO (0.9-2.4); AST(SGOT) 159 U/L (15-37); Alanine Aminotransfer ALT/SGPT 338 U/L (13-56); Albumin, Serum 3.6 g/dL (3.2-5.0); Alkaline Phosphatase 179 U/L (45-117); Anion Gap 7 (5-15); BUN 12 mg/dL (7-18); BUN/Creat Ratio 17.8 RATIO (10-20); Bilirubin, Direct 0.32 mg/dL (0.00-0.30); CRP < 2.90 mg/L (0.0-3.0); Calcium,Total 9.3 mg/dL (8.5-10.1); Chloride 107 mmol/L (98-107); Creatinine, Serum 0.68 mg/dL (0.55-1.02); EST Glomerular Filtration Rate 102 mL/min (>60); Est Glom Filt Rate - Afr Amer 123 mL/min (>60); Globulin 3.4 g/dL (2.2-4.2); Glucose 83 mg/dL (74-106); LDH 166 U/L (84-246); Sodium Level 139 mmol/L (136-145)
[2024-08-27 04:07] LABS: GGTP 158 IU/L (0-60)
[2024-08-27 14:08] LABS: Anti-Mitochondrial AB <20.0 Units (0.0-20.0)
[2024-08-27 16:09] LABS: Anti-Smooth Muscle ABS 13 Units (0-19); CMV Acute Antibody IgM < 30.0 AU/mL (0.0-29.9); CMV Antibody IgG > 10.00 U/mL (0.00-0.59); Deamidated Gliadin IgA 5 units (0-19); Deamidated Gliadin IgG 2 units (0-19); EBV Acute VCA IgM < 36.0 U/mL (0.0-35.9); EBV Nuclear Antigen IgG 90.7 U/mL (0.0-17.9); EBV-VCA IgG 51.1 U/mL (0.0-17.9); Endomysial Antibody IgA Negative (Negative); Immunoglobulin A 112 mg/dL (87-352); t-Transglutaminase IgA <2 U/mL (0-3)
== END 2024-08-25 19:05 | disposition home or self-care (01) ==
LOC: ED 22:32 → MS3 08-25 00:22
PROVIDERS: Internal Medicine Gastroenterology; Admitting Provider Obstetrics & Gynecology; Emergency Provider Emergency Medicine; PCP Nurse Practitioner Family; Visit Provider Obstetrics & Gynecology
DX: R10.12 Left upper quadrant pain (principal); Z87.891 Personal history of nicotine dependence; Z90.710 Acquired absence of both cervix and uterus; R74.8 Abnormal levels of other serum enzymes; M79.7 Fibromyalgia; R79.89 Other specified abnormal findings of blood chemistry; Z79.899 Other long term (current) drug therapy
CPT/HCPCS: 36415; 74177; 74181; 80053; 81001; 82247; 82248; 82784; 82977; 83516; 83615; 85025; 86140; 86255; 86644; 86645; 86664; 86665; 96365; 96366; 96375; 99221; 99284; Q9967; A4216; G0378; J2405